=== PATIENT | female | born 1965 | race Asian ===

== ENCOUNTER 2020-08-01 12:11 | Outpatient (REF) | payer OTHER, SELFPAY ==
--- NOTE | 2020-08-01 12:16 | MM_ITS ---
EXAMINATION: MM SCREENING DIGITAL BREAST TOMOSYNTHESIS, BILATERAL CLINICAL INFORMATION: Screening. Asymptomatic. The lifetime risk of breast cancer based on the Tyrer-Cuzick Model is 5.0%. COMPARISON: Mammography: October 29, 2018 and September 29, 2017 TECHNIQUE: Digital breast tomosynthesis is performed in both the craniocaudal and mediolateral oblique views along with computer-aided detection (CAD). Synthesized 2D images are generated from the tomosynthesis. FINDINGS: The breasts are almost entirely fatty (ACR BI-RADS breast composition Category a). There are no significant masses, abnormal calcifications, or other abnormalities. MM/MM tomosynthesis screening BI IMPRESSION: There are no significant changes from prior study. ASSESSMENT: BI-RADS 1: Negative RECOMMENDATION: Routine annual mammography screening. This patient's information was entered into a reminder system with a target due date for their next mammogram.
== END 2020-08-01 12:12 | disposition home or self-care (01) ==
LOC: HO.MAMMO 12:11
PROVIDERS: Visit Provider Internal Medicine
DX: Z12.31 Encounter for screening mammogram for malignant neoplasm of breast (principal)
CPT/HCPCS: 77063; 77067

== ENCOUNTER 2020-09-05 13:02 | Outpatient (REF) | payer OTHER, SELFPAY ==
--- NOTE | 2020-09-05 | CT_ITS ---
EXAMINATION: CT HEAD WITHOUT CONTRAST CLINICAL INFORMATION: Headache COMPARISON: None TECHNIQUE: Contiguous axial imaging was performed from the skull base to vertex without intravenous administration of contrast. This CT examination was performed using dose optimization techniques as appropriate, variously including the following: *Automated exposure control *Adjustment of mA and/or kV according to patient size (this includes techniques or standardized protocols for targeted exams where dose is matched to indication/reason for exam; i.e. extremities or head) *Use of iterative reconstruction technique DLP: 528 mGy-cm FINDINGS: There is no evidence of acute intracranial hemorrhage or territorial infarction. No abnormal mass effect or midline shift is seen. Hernandez to white matter differentiation is well preserved. No extra-axial fluid collections are identified. The ventricles are normal in size. There is no abnormal attenuation within the brain parenchyma. The osseous structures and soft tissues are normal. The mastoid air cells and visualized portions of the paranasal sinuses are well aerated. CT/CT head/brain wo con IMPRESSION: Unremarkable exam.
== END 2020-09-05 13:03 | disposition home or self-care (01) ==
LOC: HO.CT 13:02
PROVIDERS: PCP Internal Medicine; Visit Provider Internal Medicine
DX: G44.89 Other headache syndrome (principal)
CPT/HCPCS: 70450

== ENCOUNTER 2020-09-10 12:31 | Outpatient (REF) | payer OTHER, SELFPAY ==
--- NOTE | 2020-09-10 12:40 | XR_ITS ---
EXAMINATION: XR SHOULDER, LEFT CLINICAL INFORMATION: Primary osteoarthritis COMPARISON: None TECHNIQUE: 4 view left shoulder FINDINGS: There is no evidence of acute fracture or dislocation of the left shoulder. Mild spurring glenohumeral joint is seen without significant narrowing. Subchondral cysts/pit erosions are seen sites of insertion of the supraspinatus tendon on the humeral head. No significant AC joint abnormality. No widening of the coracoclavicular space. XR/XR shoulder LT min 2V IMPRESSION: Subchondral cysts/pit erosions site of insertion supraspinatus tendon.
== END 2020-09-10 12:32 | disposition home or self-care (01) ==
LOC: HO.XRAY 12:31
PROVIDERS: PCP Internal Medicine; Visit Provider Internal Medicine
DX: M19.012 Primary osteoarthritis, left shoulder (principal)
CPT/HCPCS: 73030

== ENCOUNTER → 2022-06-10 12:47 | Outpatient (BNVA) | payer OTHER, SELFPAY | PROVIDERS: PCP Internal Medicine; Referring Provider Internal Medicine; Visit Provider Nurse Practitioner Family | DX: R07.89 Other chest pain (principal); M25.512 Pain in left shoulder; R94.31 Abnormal electrocardiogram [ECG] [EKG]; I10 Essential (primary) hypertension; E78.5 Hyperlipidemia, unspecified; E11.9 Type 2 diabetes mellitus without complications; R20.0 Anesthesia of skin | CPT/HCPCS: 99212 ==

== ENCOUNTER 2022-06-18 13:59 | Outpatient (REF) | payer OTHER, SELFPAY ==
[2022-06-18 14:14] LABS: MANUAL DIFF FLAG NO
[2022-06-18 15:21] LABS: Alanine Aminotransferase 43 U/L (0-31); Albumin Level 4.2 g/dL (3.5-5.0); Alkaline Phosphatase 107 U/L (39-117); Anion Gap 14 (12-20); Aspartate Amino Transferase 25 U/L (5-31); Bilirubin Total 0.4 mg/dL (0.0-1.0); Blood Urea Nitrogen 14 mg/dL (9-16); Calcium 9.7 mg/dL (8.4-10.2); Carbon Dioxide 26 mmol/L (22-29); Chloride 103 mmol/L (96-108); Estimated Glomerular Filt Rate > 60; Glucose Random 125 mg/dL (60-115); Potassium 4.4 mmol/L (3.3-5.1); Sodium 139 mmol/L (135-145); Total Protein 7.7 g/dL (6.5-8.0)
[2022-06-18 17:13] LABS: Basophils Absolute Auto 0.1 X10*3/uL (0.0-0.2); Basophils Percent Auto 0.8 % (0-2); Eosinophils Absolute Auto 0.2 X10*3/uL (0.0-0.4); Hematocrit 38.5 % (37.0-47.0); Hemoglobin 12.7 g/dl (12.0-16.0); Imm Gran Abs Auto 0.02 X10*3/uL (0.00-0.03); Imm Gran Pct Auto 0.3 % (0.0-0.4); Lymphocytes Absolute Auto 2.7 X10*3/uL (1.2-4.9); Lymphocytes Percent Auto 34.8 % (20-40); Mean Corpuscular Hemoglobin 28.7 pg (27.0-33.0); Mean Corpuscular Volume 86.9 fL (80.0-98.0); Mean Platelet Volume 12.3 fL (9.4-12.3); Monocytes Absolute Auto 0.7 X10*3/uL (0.1-1.2); Monocytes Percent Auto 9.1 % (2-11); Neutrophils Absolute Auto 4.2 x10*3/uL (2.0-8.3); Platelet Count 211 X10*3/uL (160-400); Red Blood Count 4.43 X10*6/uL (4.20-5.50); Red Cell Distribution Width 12.9 % (11.0-16.0); White Blood Count 7.9 X10*3/uL (4.8-10.8)
== END 2022-06-18 14:00 | disposition home or self-care (01) ==
LOC: HO.LAB 13:59
PROVIDERS: Visit Provider Nurse Practitioner
DX: Z01.818 Encounter for other preprocedural examination (principal); R10.9 Unspecified abdominal pain
CPT/HCPCS: 36415; 80053; 85025; 99202; 99212

== ENCOUNTER → 2022-07-05 08:15 | Outpatient (REF) | payer OTHER, SELFPAY ==
--- NOTE | ~2022-07-05 | NM_ITS ---
Exercise Myocardial perfusion study Indication: Abnormal EKG with chest pain to evaluate for myocardial ischemia Technique: The patient was brought in for an exercise perfusion study on 07/05/2022. Patient performed exercise as per Enzo protocol and was injected 25 mCi of sestamibi was given intravenously one target HR was achieved. Images were obtained using the SPECT gamma camera interlaced with the gating device. Images were obtained in supine position. Resting perfusion study was performed on 07/06/2022. Patient was administered 25 mCi of sestamibi intravenously at rest. Images were then obtained in supine position. Images obtained with and without CT attenuation. Total DLP 96 mGy-cm. Images were processed with the software and compared side to side in short axis, horizontal long axis and vertical long axis views. Findings: The stress perfusion study showed non attenuated images shows overall normal uptake of radiotracer in all segments of LV myocardium. Attenuated corrected images show normal uptake of radiotracer in all segments of LV myocardium. The gated study shows normal LV systolic function with calculated LVEF of 64%. LV cavity is normal in size. The gated study shows normal systolic wall thickening and contraction of all segments. There is no transient ischemic dilation. Resting study shows no significant change in perfusion pattern compared to stress perfusion study. Gating at rest reveals normal systolic wall motion with ejection fraction at 70%. The findings are consistent with normal myocardial perfusion. NM/NM marcio perf SPECT rest & str Impression: 1. Normal myocardial perfusion 2. Gated LVEF is 64% 3. Transient ischemic dilatation not present Stress EKG is positive for ischemia
--- NOTE | 2022-07-05 08:18 | CA_ITS ---
Acquisition Time: 2022-07-05 08:43:13 Total Exercise Time: 00:05:11 Test Indications: Abnormal ECG CP Medications: ATORVASTATIN LISINOPRIL METOPROLOL JANUVIA Protocol: MICKEY Max HR: 141 BPM 86% of Pred: 163 BPM Max BP: 172/076 mmHG Max Work Load: 7.0 METS Exercise stress test with exercise 5 min 11 sec of Mickey protocol, achieving 86% MPHR, with mild sob, mild mid chest and bilateral shoulder discomfort, with isolated PACs, with normotensive response to exercise, with EKG changes meeting criteria, inferior, V4-V6 with slow gradualy improvement in recovery. Her symptoms resolved with rest. Nuclear images pending. Test reviewed with Dr Goodwin. Referred By: Cris Hope Overread By: CRIS HOPE
== END ==
LOC: HO.CARD 08:15
PROVIDERS: Visit Provider Nurse Practitioner Family
DX: R07.89 Other chest pain (principal); R94.31 Abnormal electrocardiogram [ECG] [EKG]; E11.9 Type 2 diabetes mellitus without complications; E78.5 Hyperlipidemia, unspecified; I10 Essential (primary) hypertension
CPT/HCPCS: 78452; 93017; A9500

== ENCOUNTER → 2022-07-09 10:34 | Outpatient (BNVA) | payer OTHER, SELFPAY | PROVIDERS: PCP Internal Medicine; Visit Provider Physician Assistant | DX: M75.102 Unspecified rotator cuff tear or rupture of left shoulder, not specified as traumatic (principal); M54.12 Radiculopathy, cervical region | CPT/HCPCS: 99202 ==

== ENCOUNTER → 2022-07-16 12:50 | Outpatient (REF) | payer OTHER, SELFPAY ==
--- NOTE | 2022-07-16 12:54 | HM_ITS ---
Conclusion: 1. Patient was monitored for total period of 3 days 2. Baseline was normal sinus rhythm with average heart of 67 beats per minute 3. No significant pauses or bradycardia 4. There were total of 196 PACs noted accounting for 0.07% total beats account for rare PACs 5. No patient reported symptoms MTDD
== END ==
LOC: HO.CARD 12:50
PROVIDERS: Visit Provider Nurse Practitioner Family
DX: R94.31 Abnormal electrocardiogram [ECG] [EKG] (principal); R20.0 Anesthesia of skin; R07.89 Other chest pain
CPT/HCPCS: 93242; 93306

== ENCOUNTER 2022-08-05 12:21 | Outpatient (REF) | payer OTHER, SELFPAY ==
--- NOTE | ~2022-08-05 | US_ITS ---
EXAMINATION: US ABDOMEN COMPLETE CLINICAL INFORMATION: Abdominal pain. COMPARISON: Ultrasound renal . TECHNIQUE: Real-time imaging of the abdominal viscera. FINDINGS: PANCREAS: The visualized pancreas is normal in size and contour and echogenicity. No pancreatic ductal distention or retroperitoneal effusion. The mid to distal pancreatic body and tail are obscured by bowel gas and not completely imaged. ABDOMINAL AORTA: The proximal, mid, and distal segments are normal in caliber. INFERIOR VENA CAVA: Visualized portions are normal. LIVER: Normal. The liver is normal in size. The liver contour is normal. Parenchymal echogenicity is normal. No focal hepatic lesion. No intrahepatic biliary ductal dilatation. Color Doppler shows portal flow towards the liver. GALLBLADDER: Normal. The gallbladder is physiologically distended without evidence of stones, sludge, polyps, wall thickening or pericholecystic fluid. Negative sonographic Hopkins's sign. COMMON BILE DUCT: Normal in caliber measuring 0.4 cm in diameter. RIGHT KIDNEY: Right kidney measures 10.8 cm in length. There is no hydronephrosis or caliectasis. There is incidental mild distention extrarenal pelvis. No perinephric fluid. No visible calculi. Renal parenchymal cortical thickness and echogenicity are normal. LEFT KIDNEY: Normal. No hydronephrosis. No renal calculi or focal parenchymal lesions. The kidney measures 10.9 cm in maximum dimension. SPLEEN: Normal. The spleen measures 9.3 cm in maximum dimension. FREE FLUID: None. US/US abdomen complete IMPRESSION: 1. No cholelithiasis or ductal dilatation. 2. No hydronephrosis or visible renal calculi. 3. Visualized pancreas unremarkable. Portions pancreas obscured by bowel gas.
--- NOTE | ~2022-08-05 | US_ITS ---
EXAMINATION: US EXTRACRANIAL CAROTID DUPLEX, BILATERAL CLINICAL INFORMATION: Hyperlipidemia. Hypertension. Anesthesia of skin. COMPARISON: None TECHNIQUE: Real-time ultrasound and Doppler techniques (integrating B-mode 2-D vascular images, Doppler spectral analysis and color-flow Doppler imaging) were utilized to interrogate the extracranial carotid arteries, the vertebral arteries and proximal subclavian arteries bilaterally. The degree of stenosis is determined by criteria similar to NASCET. FINDINGS: Right Side: 1. There is no atherosclerotic plaque seen in the bifurcation/proximal ICA region. 2. The common carotid artery PSV proximally is 114 cm/s and distally 89 cm/s. 3. The proximal internal carotid artery velocities are 65 cm/s systolic and 22 cm/s diastolic. 4. The proximal external carotid artery PSV is 112 cm/s. 5. The vertebral artery shows antegrade flow. 6. The subclavian artery waveforms are normal. Left Side: 1. There is no atherosclerotic plaque seen in the bifurcation/proximal ICA region. 2. The common carotid artery PSV proximally is 111 cm/s and distally 101 cm/s. 3. The proximal internal carotid artery velocities are 74 cm/s systolic and 26 cm/s diastolic. 4. The proximal external carotid artery PSV is 93 cm/s. 5. The vertebral artery shows antegrade flow. 6. The subclavian artery waveforms are normal. US/US carotid duplex BI IMPRESSION: 1. RIGHT: Normal right internal carotid artery without atherosclerotic plaque or hemodynamically significant stenosis. 2. LEFT: Normal left internal carotid artery without atherosclerotic plaque or hemodynamically significant stenosis.
== END 2022-08-05 12:22 | disposition home or self-care (01) ==
LOC: HO.US 12:21
PROVIDERS: Visit Provider Nurse Practitioner Family
DX: R10.9 Unspecified abdominal pain (principal); R20.0 Anesthesia of skin; E78.5 Hyperlipidemia, unspecified; E11.9 Type 2 diabetes mellitus without complications; R94.31 Abnormal electrocardiogram [ECG] [EKG]
CPT/HCPCS: 76700; 93880

== ENCOUNTER → 2022-09-07 12:50 | Outpatient (BNVA) | payer OTHER, SELFPAY | PROVIDERS: PCP Internal Medicine; Referring Provider Internal Medicine; Visit Provider Nurse Practitioner Family | DX: R94.31 Abnormal electrocardiogram [ECG] [EKG] (principal); R07.89 Other chest pain; I10 Essential (primary) hypertension; M25.512 Pain in left shoulder; E78.5 Hyperlipidemia, unspecified; E11.9 Type 2 diabetes mellitus without complications; R20.0 Anesthesia of skin | CPT/HCPCS: 93005; 99212 ==

== ENCOUNTER 2022-11-05 11:51 | Day surgery (SDC) | payer OTHER, SELFPAY ==
--- NOTE | 2022-11-04 10:45 | P.CONAN_ITS ---
Documented by User: Elana Bolaños NP 11/04/22 10:47 HPI - Anesthesia Eval Consult details Narrative: 57yo F for Upper Endoscopy and Colonoscopy Recent cardiac w/u r/t Left Shoulder pain with radiation to chest. Cardiac testing wnl, likely orthopedic tx PMFSH Active Problems Active Problems: All Active Problems (Updated 07/09/22 @ 11:34 by Jana Herrera) Cervical radiculopathy (Acute) Painful arc syndrome of left shoulder (Acute) Right sided abdominal pain (Acute) Pre-op examination (Acute) Left facial numbness (Acute) Abnormal EKG (Acute) Diabetes (Acute) Hyperlipidemia (Acute) Left shoulder pain (Acute) Chest discomfort (Acute) Hypertension (Acute) Past Medical History Medical History High cholesterol Hx of type 2 diabetes mellitus Hypertension Social History Social History Alcohol intake: never Patient Tobacco Use Status: Never used Tobacco Use of substances other than those prescribed or required for medical reasons: No Advance Directives: No Advance Directives Information Provided: Yes Current occupational status: unemployed 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 Meds Allergies Allergy/AdvReac Type Severity Reaction Status Date / Time No Known Allergies Allergy Verified 11/01/22 14:18 Home Medications Medication Instructions Recorded Confirmed Last Taken Type acetaminophen 650 mg 650 mg PO Q8H 06/10/22 09/08/22 Unknown History tablet,extended release sitagliptin phosphate 50 mg tablet 50 mg PO DAILY 06/10/22 09/08/22 Unknown History (Theresa) blood sugar diagnostic (FreeStyle #10 ea 06/18/22 09/08/22 Unknown History Lite Strips) clotrimazole 1 % topical cream appl topical 06/18/22 09/08/22 Unknown History lancets 33 gauge (TRUEplus Lancets) #100 ea 06/18/22 09/08/22 Unknown History lisinopril 5 mg tablet 5 mg PO DAILY 06/18/22 09/08/22 Unknown History loratadine 10 mg tablet 10 mg PO DAILY 06/18/22 09/08/22 Unknown History metronidazole 0.75 % topical gel topical 06/18/22 09/08/22 Unknown History Exam Exam Date and Time: November 04, 2022 1045 Pertinent Lab Results Pertinent Lab Results: Laboratory Tests 06/18/22 06/18/22 14:13 14:13 WBC 7.9 Hgb 12.7 Hct 38.5 Plt Count 211 Sodium 139 Potassium 4.4 Chloride 103 Carbon Dioxide 26 BUN 14 Creatinine 0.70 Narrative Narrative: EKG 08/2022 normal sinus rhythm, nonspecific ST abnormality, no significant change from prior EKG, rate 67, QTC 437 millisecond Nuclear stress test done on 07/05/22 showed exercise 5 min 11 sec, with EKG changes meeting criteia for ischemia however with normal myocardial perfusion imaging. Echocardiogram done 07/16/22 showed EF 55-60%, no regional WMA. Assessment and Plan Assessment Anesthesia Assessment: Chart Reviewed Documented by User: Avis Sy MD 11/05/22 14:09 [facility] Past Medical History Medical History High cholesterol Hx of type 2 diabetes mellitus Hypertension Family History Family history of problems with anesthesia: No Surgical History History of Problems with Anesthesia: No Social History Social History Alcohol intake: never Patient Tobacco Use Status: Never used Tobacco Use of substances other than those prescribed or required for medical reasons: No Advance Directives: No Advance Directives Information Provided: Yes Current occupational status: unemployed 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 Meds Allergies Allergy/AdvReac Type Severity Reaction Status Date / Time No Known Allergies Allergy Verified 11/01/22 14:18 Home Medications Medication Instructions Recorded Confirmed Last Taken Type acetaminophen 650 mg 650 mg PO Q8H 06/10/22 09/08/22 Unknown History tablet,extended release sitagliptin phosphate 50 mg tablet 50 mg PO DAILY 06/10/22 09/08/22 Unknown History (Januvia) blood sugar diagnostic (FreeStyle #10 ea 06/18/22 09/08/22 Unknown History Lite Strips) clotrimazole 1 % topical cream appl topical 06/18/22 09/08/22 Unknown History lancets 33 gauge (TRUEplus Lancets) #100 ea 06/18/22 09/08/22 Unknown History lisinopril 5 mg tablet 5 mg PO DAILY 06/18/22 09/08/22 Unknown History loratadine 10 mg tablet 10 mg PO DAILY 06/18/22 09/08/22 Unknown History metronidazole 0.75 % topical gel topical 06/18/22 09/08/22 Unknown History Exam Airway Mallampati Class: II TM Dist: >3cm Heart: rrr Lungs: cta Assessment and Plan Assessment Anesthesia Assessment: Anesthesia Plan Discussed Final Anesthetic Review Family History of Problems with Anesthesia: No History of Problems with Anesthesia: No NPO: Yes ASA Class: II Final Preanesthetic Review: No Changes in Pt Med Stat, Meds/Allgs Chart Reviewed, Consent Obtained/Reviewed and Anes Risks/Benef Reviewed Patient Risk: Low Procedure Risk: Low Anesthetic Plan Anesthetic Plan: MAC: and Agree w/ Assess. and Plan Disposition: Standard PACU
[2022-11-05 12:45] VITALS: BMI 29.6
[2022-11-05 12:47] VITALS: BP 148/86; PULSE 82; RESP 18; TEMP 36.4; O2SAT 97
[2022-11-05 12:48] VITALS: BMI 29.6
[2022-11-05] MEDS: Lactated Ringers 1,000 ML 100 ML IVCONT (13:04)
[2022-11-05 13:05] LABS: Glucose, Whole Blood 111 mg/dL (60-115)
--- NOTE | 2022-11-05 13:09 | MHC.SHP ---
Pre-Procedural Eval Section A Date of Service: 11/05/22 The patient is an INPATIENT: No The History & Physical has been completed within 30 days and I have reviewed it.: No Section B Chief Complaint: GERD, screening Details of Present Illness: Colon cancer screening, GERD Relevant Family History (Specify if Yes): No Relevant Social History: None Present Medications: see Short Stay Collaborative assessment Medical History: Significant History (NIDDM HTN High Cholesterol Obesity GERD.. Headache, nos Chronic pain bilateral shoulders Rosacea History of H pylori infection) History of Previous Operations: No relevant previous surgery Allergies: Allergies Allergy/AdvReac Type Severity Reaction Status Date / Time No Known Allergies Allergy Verified 11/01/22 14:18 Review of Systems Sugical H&P ROS: Negative: Constitution, Cardiovascular, Respiratory and Gastrointestinal Exam Surgical H&P Exam: Normal: Heart, Normal: Lungs, Normal: Extremities and Normal: Abdomen Plan Diagnosis/Plan: Change (Colon + EGD) I have reviewed the history and physical and performed a pertinent physical examination on my patient. No changes have occurred unless specified. Time Spent With Patient Time: Total time managing care of this patient today ____ minutes.
--- NOTE | 2022-11-05 14:22 | P.OP_ITS ---
Operative Note Operative Note Date of Service: 11/05/22 Narrative: Pre-op diagnosis: Colon cancer screen, GERD, abdominal pain Post-op diagnosis:?other (GERD, gastritis Colon polyp, diverticulosis, hemorrhoids) Surgeon: Ovi Lord MD Anesthesia:?MAC FLEXIBLE TRANSORAL UPPER GASTROINTESTINAL ENDOSCOPY WITH BIOPSIES AND COLONOSCOPY TILL CECUM WITH BIOPSIES UPPER ENDOSCOPY Consent: Indications for the procedure and potential complications of bleeding, perforation, reaction to medications and missed diagnosis were discussed with the patient with the help of an Danish languages and literature instructor and informed consent was obtained. Instrument: Olympus GIF H 190 mid size upper endoscope Monitoring: Vital signs and clinical assessment, continuous EKG monitoring, Pulse oximetry, Carbon Dioxide monitoring and blood pressure monitoring were done throughout the procedure. Procedure: The patient was placed in the left lateral decubitis position and pre-procedure medications were administered and a bite block was placed. The endoscope was inserted into the mouth and advanced under direct vision to the third part of duodenum. A careful inspection was made as the upper endoscope was withdrawn including a retroflexed examination of the proximal stomach; Findings and interventions are described below. Findings: Larynx: Normal Esophagus: GE junction at 36 cms. No esophagitis or Davis's. Stomach: Mild gastric erythema. Biopsies were obtained. Grade 2 flap valve on retroflexed examination of the cardia. Duodenum: Normal bulb and descending duodenum. Biopsies were obtained from 3rd part of duodenum to check for celiac sprue. Intervention: Biopsies as noted above COLONOSCOPY PROCEDURE NOTE Consent: Indications for the procedure and potential complications of bleeding, perforation, reaction to medications and missed diagnosis were discussed with the patient and informed consent was obtained. Instrument: Olympus PCF H 190 L variable stiffness pediatric colonoscope Monitoring: Vital signs and clinical assessment, intermittent blood pressure monitoring, continuous EKG monitoring, Pulse oximetry and Carbon Dioxide monitoring were done throughout the procedure. Colon withdrawl time was 14 minutes. Procedure: The patient was placed in the left lateral decubitis position and pre-procedure medications were administered. After a digital rectal examination of the ano-rectum, the video colonoscope was inserted into the rectum and advanced through the colon to the cecum. The colonoscope was slowly withdrawn in a retrograde panoramic fashion and the colon mucosa was carefully examined including a retroflexed view of the rectum. Findings and interventions are described below. Procedure Difficulty: : Without difficulty Findings: Terminal Ileum: Not evaluated Cecum: Normal Ascending Colon: Normal Transverse Colon: A 4-5 mm sessile polyp removed with a cold bx Descending Colon: Normal Sigmoid Colon: Mild diverticulosis Rectum: Normal Ano-rectum: Small internal hemorrhoids Colon preparation: Good Impression and Post Procedure Diagnosis: Endoscopy Findings: STOMACH: Mild gastritis DUODENUM: Normal - biopsied to check for celiac sprue Colonoscopy Findings: One tiny polyps removed Mild diverticulosis seen in the sigmoid colon Small hemorrhoids on retroflexed exam. Plan: Await pathology results Patient has an appointment on 11/19/22 in the [facility] with July Sexton NP. Repeat Colonoscopy interval based on path results - in 5 years if polyps are adenomatous and 10 years if polyps are hyperplastic. Above findings were reviewed with the patient and GERD, colon polyps and diverticulosis handouts were given in the discharge area
--- NOTE | 2022-11-05 14:22 | PM.OP ---
Brief Operative Note Date of Service: 11/05/22 Pre-op diagnosis: Colon cancer screen, GERD, abdominal pain Post-op diagnosis: other (GERD, gastritis Colon polyp, diverticulosis, hemorrhoids) Procedure: EGD WITH BIOPSIES COLONOSCOPY TILL CECUM WITH BIOPSIES Surgeon: Ovi Lord MD Anesthesia: MAC Was an Synchronous Motor Assembler used for this Procedure?: Yes Synchronous Motor Assembler: Jana Gore Estimated blood loss (mL): 0 Pathology: other (A. small bowel bxs, R/O celiac B. gastric antrum bxs, R/O H. pylori C: transverse colon polyp) Condition: stable Disposition: PACU
[2022-11-05 15:36] VITALS: BP 116/60; PULSE 67; RESP 16; TEMP 36.6; O2SAT 98
[2022-11-05 15:51] VITALS: BP 135/75; PULSE 67; RESP 16; TEMP 36.3; O2SAT 100
== END 2022-11-05 16:12 | disposition home or self-care (01) ==
PROVIDERS: PCP Internal Medicine; Visit Provider Internal Medicine Gastroenterology
PROC: (CPT 45380; principal; 2022-11-05 12:20)
DX: Z12.11 Encounter for screening for malignant neoplasm of colon (principal); D12.3 Benign neoplasm of transverse colon; K57.30 Diverticulosis of large intestine without perforation or abscess without bleeding; K64.8 Other hemorrhoids; K59.00 Constipation, unspecified; K21.9 Gastro-esophageal reflux disease without esophagitis; K29.50 Unspecified chronic gastritis without bleeding; Z87.19 Personal history of other diseases of the digestive system; E78.00 Pure hypercholesterolemia, unspecified; I10 Essential (primary) hypertension; E11.8 Type 2 diabetes mellitus with unspecified complications; Z79.84 Long term (current) use of oral hypoglycemic drugs; Z79.899 Other long term (current) drug therapy
CPT/HCPCS: 45380; 43239; 82947; 88305; 88342

== ENCOUNTER → 2022-11-19 13:27 | Outpatient (BNVA) | payer OTHER, SELFPAY | PROVIDERS: PCP Internal Medicine; Referring Provider Internal Medicine; Visit Provider Nurse Practitioner | DX: Z01.818 Encounter for other preprocedural examination (principal); R10.9 Unspecified abdominal pain; D12.6 Benign neoplasm of colon, unspecified | CPT/HCPCS: 99212 ==

== ENCOUNTER → 2023-03-09 13:04 | Outpatient (BNVA) | payer OTHER, SELFPAY | PROVIDERS: PCP Internal Medicine; Referring Provider Internal Medicine; Visit Provider Internal Medicine Cardiovascular Disease | DX: R07.89 Other chest pain (principal); I10 Essential (primary) hypertension; Z79.899 Other long term (current) drug therapy | CPT/HCPCS: 99212 ==

== ENCOUNTER 2024-02-14 10:06 | Outpatient (AMB) | payer MEDICAID, SELFPAY ==
--- NOTE | 2024-02-14 10:14 | A.OFFVIS_ITS ---
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: No Wet Suit Gluer: Wet Suit Gluer Present Allergies No Known Allergies Allergy (Verified 02/14/24 10:18) Medication List - Last Reconciled 02/14/24 by DANDRE Goldberg acetaminophen ER 650 mg PO Q8H atorvastatin 20 mg PO BEDTIME 90 days blood sugar diagnostic (FreeStyle Lite Strips) As directed calcium carbonate-vitamin D3 500 mg-5 mcg (200 unit) (Oyster Shell Calcium- Vitamin D3) 1 tab PO clotrimazole 1% appl topical diclofenac sodium 1% 4 grams topical QID famotidine 40 mg PO BEDTIME PRN lancets (TRUEplus Lancets) As directed lisinopril 5 mg PO DAILY loratadine 10 mg PO DAILY metoprolol succinate ER 25 mg PO DAILY 90 days metronidazole 0.75% topical saxagliptin 2.5 mg PO DAILY HPI HPI 6 mth f/up per km: Details: Lorena 58-year-old female with past medical history of hypertension, hyperlipidemia, diabetes who has previously been evaluated for left chest discomfort without cardiac findings. Her last prior visit to our office was 03/09/2023 and she now presents for follow-up. Today she reports that she continues to have issues with left shoulder discomfort which does seem to radiate into her chest. She has pain with raising her left arm. She will notice quick stabbing discomfort in her chest if she lifts objects. She has does only light activities around the house. She never followed through with the steroid injection that was previously recommended by Orthopedics. He has no other chest pains or pressure. No concerning shortness of breath, palpitations, PND, orthopnea or edema. No dizziness, presyncope, syncope, falls. Daughter is present and assisting with translation at their request. Permit signed. 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 Review of Systems Const All systems reviewed & are unremarkable except as noted in HPI and below ENT Denies dizziness Card Details: Left shoulder discomfort which radiates to the left chest when she raises her arm Denies chest pain, Denies chest pain at rest, Denies chest pain with activity, Denies rapid heart rate, Denies pedal edema, Denies edema, Denies leg edema, Denies lightheadedness, Denies palpitations, Denies dyspnea, Denies dyspnea on exertion and Denies orthopnea Resp Denies cough, Denies dyspnea and Denies dyspnea on exertion GI Denies hematochezia and Denies change in stool character Musc Denies abnormal gait, Denies limited range of motion, Denies muscle cramps, Denies muscle weakness, Denies numbness, Denies radiating pain into limb, Denies stiffness and Denies tingling Neuro Denies abnormal gait, Denies dizziness, Denies numbness and Denies tingling Endo Denies palpitations Physical Exam Vital Signs: Last Vital Signs Pulse 64 02/14/24 10:15 BP 114/62 02/14/24 10:15 BMI result Body Mass Index 28.2 Const General: cooperative, healthy appearing, comfortable and no acute distress Orientation/consciousness: patient oriented x3 Neck Neck: Yes normal visual inspection and Yes no JVD Resp Effort & Inspection: normal respiratory effort Auscultation: clear to auscultation bilaterally, no crackles, no rales, no rhonchi and no wheezes Cardio Jugular venous distension: no JVD Rate: regular rate Rhythm: regular rhythm Heart sounds: S1 normal heart sound present, S2 normal heart sound present, no murmurs and no rubs Neuro General: patient oriented x3 Extrem General: Yes normal to inspection, No no pedal edema and No calf tenderness Psych Appearance: grossly normal Mental Status: mental status grossly normal Speech and movement: Normal speech and movement present Assessment & Plan Assessment & Plan (1) Chest discomfort: Code(s): R07.89 - Other chest pain Category: Medical Plan: Evaluation at [facility] Room for left shoulder to chest area discomfort on 04/26/2022. Records previously reviewed. EKG showed sinus rhythm with moderate criteria for LVH versus normal variant. Troponin normal x2. Left shoulder x-ray showed no fracture or dislocation. She had reproducible pain with movement of the arm and shoulder. She does have cardiac risk factors of hypertension, hyperlipidemia and diabetes. She was evaluated in Cardiology for her symptom and underwent Nuclear stress test done on 07/05/22 showed exercise 5 min 11 sec, with EKG changes meeting criteia for ischemia however with normal myocardial perfusion imaging. Echocardiogram done 07/16/22 showed EF 55-60%, no regional WMA. At this time she continues to report some discomfort into the left chest region and sharp pains in her chest if she lifts objects. Her symptom is reproducible with movement of the left arm and there is some mild tenderness to the pectoral muscles upon palpation. Her symptoms are very atypical for angina. No further testing needed at this time. Reviewed the signs and symptoms of angina reviewed her. Cardiac risk factor modification reviewed. She tells me that her blood sugars have been mildly elevated. The importance of good blood sugar control reviewed. Blood pressure currently 114/6 2. Continue physical activity as tolerated. Recommend she follow-up with Orthopedics regarding discomfort in her left shoulder. Signs and symptoms of angina reviewed. Cardiology follow-up 1 yr sooner if needed (2) Left shoulder pain: Code(s): M25.512 - Pain in left shoulder Category: Medical Plan: Has seen orthopedics. Recommend she return. (3) Hyperlipidemia: Code(s): E78.5 - Hyperlipidemia, unspecified Category: Medical Plan: Crivitz LDL goal less than 70 and patient with diabetes. She continues on atorvastatin at 20 mg daily. Labs followed by PCP (4) Diabetes: Code(s): E11.9 - Type 2 diabetes mellitus without complications Category: Medical Plan: Hemoglobin A1c goal less than 7. Followed by PCP (5) Hypertension: Code(s): I10 - Essential (primary) hypertension Category: Medical Plan: Well controlled at present time. Continue on lisinopril and metoprolol. She should have biannual basic metabolic profile done. (6) Abnormal EKG: Code(s): R94.31 - Abnormal electrocardiogram [ECG] [EKG] Category: Medical Plan: EKG showing sinus rhythm with moderate criteria for LVH versus normal variant. Echo shows normal LV wall thickness. Plan Time spent on chart review, documentation, interview and assessment Coding Level of Care Code Est Pt Level 3 (26697) Diagnoses Chest discomfort R07.89 Left shoulder pain M25.512 Hyperlipidemia E78.5 Diabetes E11.9 Hypertension I10 Abnormal EKG R94.31 Time Spent (min) 24
[2024-02-14 10:15] VITALS: BP 114/62; PULSE 64; BMI 28.2
== END 2024-02-14 10:54 | disposition home or self-care (01) ==
PROVIDERS: PCP Internal Medicine; Visit Provider Nurse Practitioner Family
DX: R07.89 Other chest pain (principal); M25.512 Pain in left shoulder; E78.5 Hyperlipidemia, unspecified; E11.9 Type 2 diabetes mellitus without complications; I10 Essential (primary) hypertension; R94.31 Abnormal electrocardiogram [ECG] [EKG]
CPT/HCPCS: 99213

== ENCOUNTER → 2024-02-14 10:06 | Outpatient (BNVA) | payer OTHER, SELFPAY | PROVIDERS: PCP Internal Medicine; Visit Provider Nurse Practitioner Family | DX: R07.89 Other chest pain (principal); M25.512 Pain in left shoulder; E78.5 Hyperlipidemia, unspecified; E11.9 Type 2 diabetes mellitus without complications; I10 Essential (primary) hypertension; R94.31 Abnormal electrocardiogram [ECG] [EKG] | CPT/HCPCS: 99212 ==

== ENCOUNTER 2024-06-14 13:28 | Outpatient (REF) | payer MEDICAID, SELFPAY ==
[2024-06-14 17:13] LABS: Alanine Aminotransferase 20 U/L (0-31); Albumin Level 4.2 g/dL (3.5-5.0); Alkaline Phosphatase 92 U/L (39-117); Anion Gap 11 (12-20); Aspartate Amino Transferase 21 U/L (5-31); Bilirubin Total 0.6 mg/dL (0.0-1.0); Blood Urea Nitrogen 11 mg/dL (9-16); Calcium 9.9 mg/dL (8.4-10.2); Carbon Dioxide 25 mmol/L (22-29); Chloride 106 mmol/L (96-108); Cholesterol 137 mg/dL (<200); Estimated Glomerular Filt Rate > 60; Glucose Random 114 mg/dL (60-115); HDL Cholesterol 41 mg/dL (>40); LDL Cholesterol Calculated 75 mg/dL (<100); Potassium 4.2 mmol/L (3.3-5.1); Sodium 138 mmol/L (135-145); Total Protein 7.7 g/dL (6.5-8.0); Triglycerides 106 mg/dL (<150)
[2024-06-14 17:30] LABS: Vitamin D 25-OH Total 35.9 ng/mL (>30)
[2024-06-14 17:34] LABS: Reflex LDLD? No
== END 2024-06-14 13:29 | disposition home or self-care (01) ==
LOC: HO.HHCL 13:28
PROVIDERS: Visit Provider Internal Medicine
DX: E11.9 Type 2 diabetes mellitus without complications (principal); E78.2 Mixed hyperlipidemia; M75.82 Other shoulder lesions, left shoulder
CPT/HCPCS: 36415; 80053; 80061; 82043; 82306; 82570

== ENCOUNTER 2025-01-17 11:36 | Outpatient (REF) | payer MEDICAID, SELFPAY ==
[2025-01-17 13:38] LABS: MANUAL DIFF FLAG NO
[2025-01-17 13:45] LABS: Basophils Absolute Auto 0.1 X10*3/uL (0.0-0.2); Basophils Percent Auto 0.7 % (0-2); Eosinophils Absolute Auto 0.1 X10*3/uL (0.0-0.4); Eosinophils Percent Auto 1.2 % (0-4); Hemoglobin 12.9 g/dl (12.0-16.0); Imm Gran Abs Auto 0.02 X10*3/uL (0.00-0.03); Imm Gran Pct Auto 0.3 % (0.0-0.4); Lymphocytes Absolute Auto 1.9 X10*3/uL (1.2-4.9); Lymphocytes Percent Auto 25.7 % (20-40); Mean Corpuscular HGB Conc 33.9 g/dl (31.0-35.0); Mean Corpuscular Hemoglobin 28.9 pg (27.0-33.0); Mean Corpuscular Volume 85.2 fL (80.0-98.0); Mean Platelet Volume 12.7 fL (9.4-12.3); Monocytes Absolute Auto 0.5 X10*3/uL (0.1-1.2); Monocytes Percent Auto 6.8 % (2-11); Neutrophils Absolute Auto 4.9 x10*3/uL (2.0-8.3); Neutrophils Percent Auto 65.3 % (45-73); Platelet Count 155 X10*3/uL (160-400); Red Blood Count 4.46 X10*6/uL (4.20-5.50); Red Cell Distribution Width 12.5 % (11.0-16.0); White Blood Count 7.5 X10*3/uL (4.8-10.8)
[2025-01-17 13:54] LABS: Rheumatoid Factor < 13.0 IU/mL (<15.0)
[2025-01-17 13:56] LABS: C Reactive Protein < 0.10 mg/dL (< or = 0.50); Uric Acid 3.9 mg/dL (2.4-5.7)
--- OUTSIDE RECORDS SUMMARY | 2025-01-17 14:11 | XMS_ITS | Encounter Summary ---
Author Organization [employer] Address [address] [place] [address] Care Team Providers Care Inorganic Chemistry Professor Name Role Phone Twyla Cedeño MD Primary Care Provider + Reason for Visit * Reason Comments Med Refill Encounter Details Date Type Department Care Team (Late st Contact Info) Description 06/23/2023 Refill [facility] [address] [place] [address] Carmel Dang MD [address], [place] [phone] Rosacea Social History Tobacco Use Types Packs/Day Years Used Date Smoking Tobacco: Never Smokeless Tobacco: Never Alcohol Use Standard Drinks/Week Comments Never 0 (1 standard drink = 0.6 oz pur e alcohol) Depression Answer Date Recorded Patient Health Questionnaire-2 Score 0 11/24/2022 Comments Unknown Sex and Gender Information Value Date Recorded Sex Assigned at Female 08/09/2022 10:32 AM EDT Legal Sex Female 10:32 AM EDT Gender Identity Female 08/09/2022 10:32 AM EDT Sexual Orientation Choose not to disclose 2021 10:32 AM EDT documented as of this encounter Plan of Treatment Upcoming Encounters Date Type Department Care Team (Late st Contact Info) Description 02/04/2025 1:00 PM EDT Office Visit [facility] [address], [place] [phone] Nevaeh Hauser documented as of this encounter Visit Diagnoses Diagnosis Rosacea documented in this encounter Care Teams Inorganic Chemistry Professor Relationship Specialty Start Date End Date Twyla Cedeño MD [address] [place] [address] PCP - General Family Medicine 09/27/17 documented as of this encounter
--- OUTSIDE RECORDS SUMMARY | 2025-01-17 14:11 | XMS_ITS | Clinical Summary ---
Author Organization [employer] Address [address] [place] [address] Care Team Providers Care Stroke Coordinator Name Role Phone Twyla Cedeño MD Primary Care Provider + Allergies Active Allergy Reactions Criticality Noted Date Comments Carolina Oil 06/14/2024 Medications acetaminophen (Tylenol 8 Hour) 650 MG ER tablet TAKE 1 TO 2 TABLETS BY MOUTH EVERY 8 HOURS NEEDED SWALLOW WHOLE WITH WATER DO NOT BREAK, CRUSH, DISSOLVE OR CHEW 06/03/20 22 Active Blood Pressure Monitoring (Omron 3 Series BP Monitor) device USE TO CHECK BLOOD PRESSURE EVERY DAY 09/06/20 22 Active Sodium Fluoride (PreviDent) 1.1 % gel Use at bed time every night spit do not rinse for 30 min. 05/14/20 19 Active zoster vaccine, live, (Zostavax) 02316 UNT/0.65ML injection inject 0.65 milliliter by subcutaneous route once 05/29/20 19 Active Continuous Glucose Field Marketing Specialist (FreeStyle Sony 2 [place]) device Scan sensor every 8 hours 1 each 06/14/20 24 Active Continuous Glucose Sensor (FreeStyle Sony 2 Sensor) [facility] Apply 1 sensor every 14 days 2 each 11 06/14/20 24 Active glucose blood (FreeStyle Precision Georgi Test) test strip Use to test blood sugar 3 times daily 100 each 1 06/14/20 24 Active glucose blood (FREESTYLE LITE) test stripIndication s:Type 2 diabetes mellitus without complication, without long-term current use of insulin ([facility]) TEST BLOOD SUGAR THREE TIMES DAILY 100 strip 1 07/27/20 24 Active famotidine (Pepcid) 40 MG tabletIndicatio ns:Gastroesopha geal reflux disease with esophagitis without hemorrhage TAKE 1 TABLET BY MOUTH AT BEDTIME NEEDED 90 tablet 1 07/27/20 24 Active TRUEplus Lancets 33G miscIndications :Type 2 diabetes mellitus without complication, without long-term current use of insulin ([facility]) TEST BLOOD SUGAR THREE TIMES DAILY 100 each 11 08/28/20 24 Active Menthol, Topical Analgesic, (Icy Hot) 5 % patch Use on affected area 14 patch 09/14/20 24 Active meloxicam (Mobic) 15 MG tablet Take 1 tablet (15 mg) by mouth Once per day. 30 tablet 09/14/20 24 2024 Active Antacid Extra Strength 750 MG chewable tablet CHEW 1 TABLET BY MOUTH TWICE DAILY 180 tablet 1 10/15/19 25 Active Diclofenac Sodium 1 % gelIndications: Chronic left shoulder pain APPLY 4 GRAMS TOPICALLY TO AFFECTED AREA(S) FOUR TIMES DAILY 100 g 3 10/23/19 25 Active atorvastatin (Lipitor) 20 MG tabletIndicatio ns:Type 2 diabetes mellitus without complication, without long-term current use of insulin ([facility]) TAKE 1 TABLET BY MOUTH AT BEDTIME 90 tablet 1 11/12/19 25 Active metoprolol succinate XL (Toprol-XL) 25 MG 24 hr tabletIndicatio ns:Essential hypertension TAKE 1 TABLET BY MOUTH EVERY MORNING 90 tablet 1 11/12/19 25 Active loratadine (Claritin) 10 MG tablet TAKE 1 TABLET BY MOUTH EVERY DAY 90 tablet 1 11/12/19 25 Active lisinopril 5 MG tabletIndicatio ns:Essential hypertension TAKE 1 TABLET BY MOUTH EVERY MORNING 90 tablet 1 11/12/19 25 Active Januvia 50 MG tablet TAKE 1 TABLET BY MOUTH EVERY MORNING 30 tablet 1 01/01/20 25 Active Januvia 50 MG tablet TAKE 1 TABLET BY MOUTH EVERY MORNING 90 tablet 10/12/19 25 2024 Discontinued Active Problems Problem Noted Date Diagnosed Date Tenosynovitis of finger and hand 01/17/2025 Varicose veins of both lower extremities with pa in 06/14/2024 Assessment & Plan (06/14/2024 3:15 PM EDT): On lower extremities, advised to use compression stockings to knee level Generalized abdominal pain 04/24/2023 Mononeuropathy due to type 2 diabetes mellitus 0 04/24/2023 Assessment & Plan (06/14/2024 3:16 PM EDT): On right foot, stable. Advised to do foot check regularly. Tendinitis of left rotator cuff 04/24/2023 Assessment & Plan (09/17/2024 9:22 AM EST): Declined referral to PT again to continue rehab, she also declined referral to joint injection clinic. She wants to be referred to orhto to explore other rx options, will do. Continue Meloxicam and tylenol prn, advised re acupuncture clinic. Assessment & Plan (06/14/2024 1:56 PM EDT): Mild improved on PT, will continue POC. Declined referral to steroid injection. Needs assistance for ADLs that involve lifting, she is being evaluated for home care. Assessment & Plan (03/09/2024 3:53 PM EDT): Partial improvement with PT. Wants to go back to PT, if no improvement she agrees to steroid injection. Continue Tylenol prn May needs assistance with ADLs, I will order an evaluation for PACK OUT OPERATOR Helicobacter pylori (H. pylori) 11/24/2022 Overview (07/10/2023): Replace inactive dx Rosacea 02/06/2019 Assessment & Plan (05/09/2023 2:34 PM EDT): No significant rash, seems to have improved with metrogel, however, she does not tolerate well. Will prescribe XXXX Avoid sun exposure. Menopausal flushing 11/06/2018 Vitamin D deficiency 11/06/2018 Assessment & Plan (03/09/2024 3:52 PM EDT): Check Vit D levels Essential hypertension 08/04/2018 Assessment & Plan (03/09/2024 3:49 PM EDT): Controlled. Compliant w/meds Continue lisinopril and metoprolol same dose Counseled re low salt diet/increase moderate physical activity. Check home BP BIW and prn CP/LYNCH/FOX Non smoking patient. Order labs and fu w me in3m Assessment & Plan (11/24/2022 10:57 AM EST): Controlled. Compliant w/meds Continue lisinopril 5 mg + Metoprolol ER 25 mg Counseled re low salt diet/increase moderate physical activity. Check home BP BIW and prn CP/LYNCH/FOX Non smoking patient. Precordial pain 08/04/2018 Gastroesophageal reflux disease 03/15/2018 Pain in female pelvis 03/15/2018 Headache disorder 01/30/2018 Microalbuminuric diabetic nephropathy 10/31/2017 Tinea pedis 10/31/2017 Type 2 diabetes mellitus without complication Assessment & Plan (09/17/2024 9:23 AM EST): Its most likely controlled. Will check A1c at next OV Continue on Januvia 50 mg. Counseled re more frequent low calorie/carb meals. Check fgstk once daily Encouraged physical activity as tolerated. FU in 3 months. Assessment & Plan (06/14/2024 1:57 PM EDT): Controlled. A1c is at goal. Continue on Januvia 50 mg. Counseled re more frequent low calorie/carb meals. Check fgstk once daily Encouraged physical activity as tolerated. FU in 3 months. Assessment & Plan (03/09/2024 3:52 PM EDT): Uncontrolled. Increase Onglyza to 5mg/d Counseled re more frequent low calorie/carb meals. Check fgstk 2x daily Encouraged physical activity as tolerated. FU in 3 months. Assessment & Plan (05/09/2023 2:35 PM EDT): Controlled, A1C at goal. Continue same medications in med boxes. Refills x 3 months Due for blood test on 2022 she will follow up with PCP in [facility]. Her daughter will schedule fu with me on their return. Counseled re more frequent low calorie/carb meals. Encouraged physical activity as tolerated. Assessment & Plan (11/24/2022 10:59 AM EST): Controlled. A1c is at goal. Continue on Januvia. Counseled re more frequent low calorie/carb meals. Check fgstk once daily Encouraged physical activity as tolerated. Referred to DM educator. FU in 3 months. Hyperlipidemia 09/29/2017 Assessment & Plan (03/09/2024 3:53 PM EDT): On atorvastatin 20mg, check lipids. Recommended moderate amount of exercise and increase consumption of fruit, vegetables, fish and high fiber foods. Should decrease consumption of highly saturated fats or trans fats. Acute vaginitis 09/29/2017 Obesity 09/29/2017 Resolved Problems Problem Noted Date Diagnosed Date Resolved Date Arthritis of left shoulder region 11/24/2022 09/14/2024 Assessment & Plan (11/24/2022 10:59 AM EST): Gave information to do home exercises. Pt has declinied steroid injection by orthopedics. She has not attended PT appointments yet. 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 2 diabetes mellitus (CMS/HCC); Tendinitis of left rotator cuff; Tenosynovitis of finger and hand; Rosacea 01/17/2025 Travel 01/16/2025 Telephone [facility] [address], [place] [phone] Twyla Cedeño MD Chart prep 01/08/2025 1:00 PM EDT Office Visit [facility] [address] [place], [place] [phone] Anca Fernandez, OD Type 2 diabetes mellitus without complication, without long-term current use of insulin (CMS/HCC) (Primary Dx); Pseudoexfoliation syndrome; Ocular hypertension, bilateral; Age-related nuclear cataract of both eyes; Corneal scar, left eye; Presbyopia 01/08/2025 Travel 01/08/2025 Patient Outreach [facility] [address] [place] [address] Twyla Cedeoñ MD Pre-visit Planning ((Unable to reach for PVP screening, LVM)) 12/29/2024 Refill [facility] [address], [place] [phone] [facility], FORMATION TESTING OPERATOR 12/21/2024 Population Health Risk Score [facility] () Department [address] [phone] Provider, Population Health Generic 11/12/2024 Refill [facility] [address], [place] [phone] Twyla Cedeño MD Type 2 diabetes mellitus without complication, without long-term current use of insulin (CMS/HCC); Essential hypertension 10/22/2024 Refill [facility] [address], [place] [phone] Twyla Cedeño MD Chronic left shoulder pain from Last 3 Months Immunizations Name Administration Dates Next Due Influenza Injectable Quadriv alant Preservative Free IIV4 MDCK 07/22/2022,09/08/2020 Influenza injectable quadriv alent IIV4 with preservative 06/27/2019,09/29/2017 Influenza injectable quadrivalent preservative f ree 10/13/2018 Moderna Covid-19 Vaccine 12+ 04/14/2021,03/18/20 21 Tdap 05/29/2019 Zoster, live 05/29/2019 Social History Tobacco Use Types Packs/Day Years Used Date Smoking Tobacco: Never Smokeless Tobacco: Never Tobacco Cessation:Counseling Given: Not Answered Alcohol Use Standard Drinks/Week Comments Never 0 (1 standard drink = 0.6 oz pur e alcohol) Housing Stability Answer Date Recorded What is your housing situation today? I have seven [address]arro 05/28/[address] you li ve. Do you have problems with any of the following? None of the above 05/28/2024 Food Insecurity Answer Date Recorded Within the past 12 months, y ou worried that your food would run out before you got money to buy more: Never True 05/28/2024 Within the past 12 months,th e food you bought just didn't last and you didn't have enough money to get more: Never True Transportation Answer Date Recorded In the past 12 months, has l ack of transportation kept you from medical appts, meetings, work or from getting things needed for daily living? No 05/28/2024 Utilities Answer Date Recorded In the past 12 months, has t he electric, gas, oil or water company threatened to shut off services in your home? No 05/28/2024 Depression Answer Date Recorded Patient Health Questionnaire-2 Score 0 11/24/2022 Internet Access Answer Date Recorded Internet Access Q1 No 01/17/2025 Internet Access Q2 I do not want or need it 01/08 Comments No Sex and Gender Information Value Date Recorded Sex Assigned at Female 08/09/2022 10:32 AM EDT Legal Sex Female 10:32 AM EDT Gender Identity Female 08/09/2022 10:32 AM EDT Sexual Orientation Choose not to disclose 2021 10:32 AM EDT Last Filed Vital Signs Vital Sign Reading Time Taken Comments Blood Pressure 137/69 01/17/2025 10:25 AM EDT Pulse 63 01/17/2025 10:25 AM EDT Temperature 36.1 ??C (97 ??F) 01/17/2025 10:25 AM EDT Respiratory Rate 16 03/09/2024 11:08 AM EDT Oxygen Saturation 99% 01/17/2025 10:25 AM EDT Inhaled Oxygen Concentration - - Weight 70 kg (154 lb 6 oz) 01/17/2025 10:25 AM E DT Height 154.9 cm (5' 1 ) 01/17/2025 10:25 AM EDT Body Mass Index 29.17 01/17/2025 10:25 AM EDT Plan of Treatment Upcoming Encounters Date Type Department Care Team (Late st Contact Info) Description 02/04/2025 1:00 PM EDT Office Visit [facility] ADULT DENTAL [address] [place] [phone] Nevaeh Hauser Health Maintenance Due Date Last Done Comments CT Colonography 1964 FIT DNA/Cologuard 1964 FIT 1964 FOBT 1964 HIV Screening 1964 Sigmoidoscopy 1964 Alcohol/Substance Use Screening 1976 Hepatitis C Screening 1982 Pneumococcal Vaccine: 50+ Years (1 of 2 - PCV) 1983 Pap Smear 1985 Zoster Vaccines (2 of 3) 07/24/2019 05/29/2019 Mammogram 08/01/2022 08/01/2020, 10/11, 11/07/2018, Additional history exists Cervical Cancer Screening 11/23/2022 HPV/Cotest 11/23/2022 11/23/2017 Depression Screening 11/24/2023 11/24/2022, 11/24/19 COVID-19 Vaccine ( - season) 2024 04/14/2021, 03/18/2021 Influenza Vaccine (#1) 2024 , 09/08/2020, 06/27/2019, Additional history exists RSV Patients and Patients Aged 60 years or older (1 - Risk 60-74 years 1-dose series) 2024 Dental Oral Exam 01/18/2025 07/19/2024 Dental Prophylaxis 02/02/2025 08/03/2024 Diabetes: Foot Exam 06/14/2025 06/14/2024, 06/14/2024, 06/14/2024, Additional history exists Lipid Panel 06/14/2025 06/14/2024, 07/11, 03/18/2021, Additional history exists Diabetes: Hemoglobin A1C 07/19/2025 025, 06/14/2024, 03/09/2024, Additional history exists Dental X-Ray: Bitewings 07/20/2025 07/19/2024 SDOH Screening 01/17/2026 01/17/2025 Tobacco Screening 01/17/2026 01/17/2025 Eye Exam 01/08/2027 01/08/2025, 04/0 10/2024, 01/08/2025, Additional history exists Dental X-Ray: Full Mouth 07/20/2027 07/19/2024 Colonoscopy 11/05/2027 11/05/2022 Colorectal Cancer Screening 11/05/2027 DTaP/Tdap/Td Vaccines (2 - Td or Tdap) 05/29/2029 05/29/2019 HIB Vaccines Aged Out No longer eligi ble based on patient's age to complete this topic HPV Vaccines Aged Out No longer eligi ble based on patient's age to complete this topic Hepatitis A Vaccines Aged Out No long er eligible based on patient's age to complete this topic Hepatitis B Vaccines Aged Out No long er eligible based on patient's age to complete this topic IPV Vaccines Aged Out No longer eligi ble based on patient's age to complete this topic Meningococcal Vaccine Aged Out No robby pascale eligible based on patient's age to complete this topic RSV under 20 months Aged Out No longe r eligible based on patient's age to complete this topic Rotavirus Vaccines Aged Out No longer eligible based on patient's age to complete this topic Procedures Procedure Name Priority Date/Time Associated Diagnosis Comments CBC WITH AUTO DIFFERENTIAL Routine 01/17/2025 11:39 AM EDT Tendinitis of left rotator cuff Tenosynovitis of finger and hand URIC ACID Routine 01/17/2025 11:39 AM EDT Tendinitis of left rotator cuff Tenosynovitis of finger and hand RHEUMATOID FACTOR Routine 01/17/2025 11: 39 AM EDT Tendinitis of left rotator cuff Tenosynovitis of finger and hand C-REACTIVE PROTEIN Routine 01/17/2025 11 :39 AM EDT Tendinitis of left rotator cuff Tenosynovitis of finger and hand POCT GLYCATED HEMOGLOBIN, TOTAL Routine 01/17/2025 10:25 AM EDT Type 2 diabetes mellitus without complication, without long-term current use of insulin (CMS/HCC) POCT GLUCOSE Routine 01/17/2025 10:25 AM EDT Type 2 diabetes mellitus without complication, without long-term current use of insulin (CMS/HCC) PROPHYLAXIS - ADULT Routine 08/03/2024 1 1:00 AM EDT Dental calculus Dental plaque INTRAORAL - COMPLETE SERIES OF RADIOGRAPHIC IMAGES Routine 07/19/2024 10:30 AM EDT PERIODIC ORAL EVALUATION - ESTABLISHED PATIENT Routine 07/19/2024 10:30 AM EDT LIPID PANEL WITH REFLEX TO DIRECT LDL Routine 06/14/2024 1:37 PM EDT Mixed hyperlipidemia HM COLONOSCOPY Routine 11/05/2022 MAMMOGRAM GENERIC Routine 08/01/2020 12: 16 PM EDT ZZZ HISTORICAL HPV MRNA E6/E7 Routine 11/23/2017 10:06 AM EST from Last 3 Months or Most Recently Relevant to Health Maintenance Results * (ABNORMAL) CBC auto differential (01/17/2025 11:39 AM EDT) White Blood Count 7.5 4.8 - 10.8 X10*3/uL [facility] Red Blood Count 4.46 4.20 - 5.50 X10*6/uL [facility] Hemoglobin 12.9 12.0 - 16.0 g/dl [facility] Hematocrit 38.0 37.0 - 47.0 % [facility] Mean Corpuscular Volume 85.2 80.0 - 98.0 fL [facility] Mean Corpuscular Hemoglobin 28.9 27.0 - 33.0 pg [facility] Mean Corpuscular HGB Conc 33.9 31.0 - 35.0 g/dl [facility] Red Cell Distribution Width 12.5 11.0 - 16.0 % [facility] Platelet Count 155(L) 160 - 400 X10*3/uL [facility] Mean Platelet Volume 12.7(H) 9.4 - 12.3 fL [facility] Neutrophils Percent Auto 65.3 45 - 73 % [facility] Imm Gran Pct Auto 0.3 0.0 - 0.4 % [facility] Lymphocytes Percent Auto 25.7 20 - 40 % [facility] Monocytes Percent Auto 6.8 2 - 11 % [facility] Eosinophils Percent Auto 1.2 0 - 4 % [facility] Basophils Percent Auto 0.7 0 - 2 % [facility] NRBC Pct Auto 0.0 0.0 - 0.2 /100WBC [facility] Neutrophils Absolute Auto 4.9 2.0 - 8.3 x10*3/uL [facility] Imm Gran Abs Auto 0.02 0.00 - 0.03 X10*3/uL [facility] Lymphocytes Absolute Auto 1.9 1.2 - 4.9 X10*3/uL [facility] Monocytes Absolute Auto 0.5 0.1 - 1.2 X10*3/uL [facility] Eosinophils Absolute Auto 0.1 0.0 - 0.4 X10*3/uL [facility] Basophils Absolute Auto 0.1 0.0 - 0.2 X10*3/uL [facility] NRBC Abs Auto 0.000 0.0 - 0.012 X10*3/uL [facility] Blood Venous blood specimen / Unknown 01/17/2025 11:39 AM EDT 01/17/2025 1:33 PM EDT us Twyla Cedeño MD LAB BLOOD ORDERABLES Fin al Result [facility] [address] [place] [phone] * Rheumatoid Factor (01/17/2025 11:39 AM EDT) Rheumatoid Factor <13.0 <15.0 IU/mL [facility] Blood Venous blood specimen / Unknown 01/17/2025 11:39 AM EDT 01/17/2025 1:33 PM EDT us Twyla Cedeño MD LAB BLOOD ORDERABLES Fin al Result Performing Organization Address City/[facility]/ZIP Co de Phone Number [facility] [address] [place] [phone] * C-reactive Protein (01/17/2025 11:39 AM EDT) C Reactive Protein <0.10 < or = 0.50 mg/dL [facility] Blood Venous blood specimen / Unknown 01/17/2025 11:39 AM EDT 01/17/2025 1:33 PM EDT Twyla Cedeño MD LAB BLOOD ORDERABLES Fin al Result [facility] [address] [place] [phone] * Uric acid (01/17/2025 11:39 AM EDT) Pathologist [facility] Uric Acid 3.9 2.4 - 5.7 mg/dL [facility] Blood Venous blood specimen / Unknown 01/17/2025 11:39 AM EDT 01/17/2025 1:33 PM EDT Twyla Cedeño MD LAB BLOOD ORDERABLES Fin al Result Performing Organization Address City/[facility] Co de Phone Number [facility] [address] [place] [address] [phone] * (ABNORMAL) POCT HGB A1C (01/17/2025 10:25 AM EDT) Hemoglobin A1C 6.6(A) 4.0 - 6.0 % QC Media Lot # [id number] Lot# Expiration Date 876 Blood 01/17/2025 10:2 5 AM EDT Twyla Cedeño MD POINT OF CARE TEST ENTER /EDIT ORDERABLES Final Result * POCT Glucose (01/17/2025 10:25 AM EDT) Glucose Blood, POC 175 60 - 200 mg/dL QC Media Lot # [id number] Lot# Expiration Date 276 Blood Capillary blood specimen / Unknown 01/17/2025 10:25 AM EDT Twyla Cedeño MD POINT OF CARE TEST ENTER /EDIT ORDERABLES Final Result * Lipid Panel with Reflex to Direct LDL (06/14/2024 1:37 PM EDT) Triglycerides 106 <150 mg/dL [facility] Comment:Desirable Triglyceri de: less than 150 mg/dLBorderline High Triglyceride 150-199 mg/dLHigh Triglyceride: 200-499 mg/dLVery High Triglyceride: greater than or equal to 5OO mg/dL Cholesterol 137 <200 mg/dL [facility] Comment:Desirable Cholestero l: less than 200 mg/dLBorderline High Cholesterol: 200-239 mg/dLHigh Cholesterol: greater than 239 mg/dL LDL Cholesterol Calculated 75 <100 mg/dL [facility] Comment:Desirable LDL: less than 100 mg/dLNear Optimal/Above Optimal LDL: 110- 129 mg/dLBorderline High LDL: 130-159 mg/dLHigh LDL: 160-189 mg/dLVery High LDL: greater than or equal to 190 mg/dL HDL Cholesterol 41 >40 mg/dL [facility] Comment:Desirable HDL: great er than 40 mg/dL Note: This HDL assay may give artificially low results in patients with liver disease. Blood 06/14/2024 1:37 PM EDT 06/14/2024 4:32 PM EDT Twyla Cedeño MD LAB BLOOD ORDERABLES Fin al Result [facility] [address] [place] [phone] * (ABNORMAL) Hm Colonoscopy (11/05/2022) Colonoscopy Abnormal( A) Normal [facility] Comment:adenomatous polyps a nd Diverticulosis 11/05/2022 us Twyla Cedeño MD HEALTH MAINTENANCE Final Result [facility] [address] [place], [place] [phone] * Mammography Report 1 (08/01/2020 12:16 PM EDT) Anatomical Region Laterality Modality Breast Bilateral Mammography 08/01/2020 12:1 6 PM EDT Narrative 03/24/2021 10:12 AM EDT Refer to the Notes tab for result details [facility] Procedure: Mammography Report 1 Procedure Note Provider, MD Ravinder - 01/01/2023 Refer to the Notes tab for result details [facility] Procedure: Mammography Report 1 us Twyla Cedeño MD IMG BI PROCEDURES Final Result * HPV mRNA E6/E7 (11/23/2017 10:06 AM EST) HPV mRNA E6/E7 Not Detected NOT DETECTED [facility] Comment: This test was performed using the APTIMA(R) HPV Assay ([employer] This assay detects E6/E7 viral messenger RNA (mRNA) from 14 high-risk HPV types (16,18,31,33,35,39,45,51, 52,56,58,59,66,68). For additional information please refer to: http://education.NovoPedics.Rockpack/faq/VJJ581z8 (This link is being provided for informational/ educational purposes only.) Test Performed by [facility], [facility], [address] [place] [address] Narciso Diallo M.D., Ph.D., Director of Laboratories , [facility] [id number] Please note: ??Effective 06/21/2016, HPV testing will be performed using [employer]'s APTIMA test which targets mRNA. Detecting mRNA instead of DNA, as in older methods, offers significant improvements in specificity. 11/23/2017 10:0 6 AM EST us Farhana Porter CNM HISTORICAL/NON ORDERABLE LABS Final Result [facility] [address] from Last 3 Months or Most Recently Relevant to Health Maintenance Insurance HSN FULL [facility] C[facility] [employer] ST[employer] ADULT Care Teams Stroke Coordinator Relationship Specialty Start Date End Date Twyla Cedeño MD [address] [place] [phone] PCP - General Family Medicine 09/27/17
--- OUTSIDE RECORDS SUMMARY | 2025-01-17 14:11 | XMS_ITS | Encounter Summary ---
Author Organization [employer] Address [address] [place] [address] Care Team Providers Care Thread Dresser Name Role Phone Twyla Cedeño MD Primary Care Provider + Reason for Visit * Reason Onset Date Comments Chart prep 01/16/2025 Encounter Details Date Type Department Care Team ([facility] st Contact Info) Description 01/16/[address] [facility] MEDICINE [address] [place], [place] [phone] Twyla Cedeño MD [address] [place], [place] [phone] Chart prep Social History Tobacco Use Types Packs/Day Years [...] AM EDT documented as of this encounter Miscellaneous Notes * Telephone Encounter - Krista Toribio [place] - 01/16/2025 8:35 AM EDT Chart Prep Labs: done Images: not done Vaccines due: yes Referrals: appointment pending Screenings: mammogram and pap smear Overdue care gaps: A1c, Glucose, SDOH, PHQ-9, and Disability screen documented in this encounter Plan of Treatment Upcoming Encounters Date Type Department Care Team (Late st Contact Info) Description 02/04/2025 1:00 PM EDT Office Visit [facility] ADULT DENTAL [address] [place] [address] Nevaeh Hauser documented as of this encounter Visit Diagnoses Not on filedocumented in this encounter Care Teams Thread Dresser Relationship Specialty Start Date End Date Twyla Cedeño MD [address] [place] [address] PCP - General Family Medicine 09/27/17 documented as of this encounter
--- OUTSIDE RECORDS SUMMARY | 2025-01-17 14:11 | XMS_ITS | Encounter Summary ---
Author Organization [employer] Address [address] 7[address] [place] [address] Care Team Providers Care Desilverizer Name Role Phone Twyla Cedeño MD Primary Care Provider + Encounter Details Date Type Department Care Team (Latest Contact Info) Description 01/17/2025 Travel Social History Tobacco Use Types Packs/Day Years Used Date Smoking Tobacco: Never Smokeless Tobacco: Never Alcohol Use Standard Drinks/Week Comments Never 0 (1 standard drink = 0.6 oz pur e alcohol) Housing Stability Answer Date Recorded What is your housing situation today? I have seven [place] 05/28/[address] you li [...] 1:00 PM EDT Office Visit [facility] ADULT DENTAL [address] [place] [address] Nevaeh Hauser documented as of this encounter Visit Diagnoses Not on filedocumented in this encounter Care Teams Desilverizer Relationship Specialty Start Date End Date Twyla Cedeño MD [address] [place] [address] PCP - General Family Medicine 09/27/17 documented as of this encounter
--- OUTSIDE RECORDS SUMMARY | 2025-01-17 14:11 | XMS_ITS | Encounter Summary ---
Author Organization [employer] Address [address] [place] [address] Care Team Providers Care Drawer In Stitch Bonding Machine Name Role Phone Twyla Cedeño MD Primary Care Provider + Reason for Visit * Reason Comments Med Refill Encounter Details Date Type Department Care Team (Late st Contact Info) Description 06/15/2023 Refill [facility] MEDICINE [address] [place] [address] Twyla Cedeño MD [address] [place], [place] [phone] Social History Tobacco Use Types Packs/Day Years [...] Description 02/04/2025 1:00 PM EDT Office Visit [facility] ADULT DENTAL [address] [place] [address] Nevaeh Hauser documented as of this encounter Visit Diagnoses Not on filedocumented in this encounter Care Teams Drawer In Stitch Bonding Machine Relationship Specialty Start Date End Date Twyla Cedeño MD [address] [place] [phone] PCP - General Family Medicine 09/27/17 documented as of this encounter
--- OUTSIDE RECORDS SUMMARY | 2025-01-17 14:11 | XMS_ITS | Encounter Summary ---
Author Organization [employer] Address [address] 7[address] [place] [address] Care Team Providers Care Brick Baker Name Role Phone Twyla Cedeño MD Primary Care Provider + Encounter Details Date Type Department Care Team (Latest Contact Info) Description 03/26/2021 Abstract [facility] CONVERSIONS Dental, Provider, DDS Social History Tobacco Use Types Packs/Day Years Used Date Smoking Tobacco: Never Assessed Comments Unknown Sex and Gender Information Value [...] Description 02/04/2025 1:00 PM EDT Office Visit [facility] ADULT DENTAL [address] [place] [address] Nevaeh Hauser documented as of this encounter Visit Diagnoses Not on filedocumented in this encounter Care Teams Brick Baker Relationship Specialty Start Date End Date Twyla Cedeño MD [address] [place], [place] [phone] PCP - General Family Medicine 09/27/17 documented as of this encounter
--- OUTSIDE RECORDS SUMMARY | 2025-01-17 14:11 | XMS_ITS | Encounter Summary ---
Author Organization [employer] Address [address] 7[address] [place] [address] Care Team Providers Care Director Of Market Analysis Name Role Phone Twyla Cedeño MD Primary Care Provider + Encounter Details Date Type Department Care Team (Latest Contact Info) Description 06/02/2022 Abstract [facility] CONVERSIONS Dental, Provider, DDS Social History Tobacco [...] Description 02/04/2025 1:00 PM EDT Office Visit [facility] ADULT DENTAL [address] [place] [address] Nevaeh Hauser documented as of this encounter Visit Diagnoses Not on filedocumented in this encounter Care Teams Director Of Market Analysis Relationship Specialty Start Date End Date Twyla Cedeño MD [address] [place], [place] [phone] PCP - General Family Medicine 09/27/17 documented as of this encounter
--- OUTSIDE RECORDS SUMMARY | 2025-01-17 14:11 | XMS_ITS | Encounter Summary ---
Author Organization [employer] Address [address] [place] [address] Care Team Providers Care Eap Specialist Name Role Phone Twyla Cedeño MD Primary Care Provider + Reason for Visit * Reason Comments Med Refill Encounter Details Date Type Department Care Team ([facility] st Contact Info) Description 05/30/2024 Refill [facility] DIABETES/NUTRITION [address] [place], [place] [phone] Twyla Cedeño MD [address] [place] [address] Tinea corporis Social History Tobacco Use Types Packs/Day Years [...] 1:00 PM EDT Office Visit [facility] ADULT DENTAL [address] [place] [address] Nevaeh Hauser documented as of this encounter Visit Diagnoses Diagnosis Tinea corporis Dermatophytosis of the body documented in this encounter Care Teams Eap Specialist Relationship Specialty Start Date End Date Twyla Cedeño MD [address] [place] [address] PCP - General Family Medicine 09/27/17 documented as of this encounter
--- OUTSIDE RECORDS SUMMARY | 2025-01-17 14:11 | XMS_ITS | Encounter Summary ---
Author Organization [employer] Address [address] [place] [address] Care Team Providers Care Dean Of Admissions Name Role Phone Twyla Cedeño MD Primary Care Provider + Reason for Visit * Reason Comments Diabetes Encounter Details Date Type Department Care Team (Late st Contact Info) Description 01/17/2025 10:30 AM EDT Office Visit [facility] MEDICINE [address] [place], [place] [phone] Twyla Cedeño MD [address] [place] [address] Type 2 diabetes mellitus without complication, without long-term current use of insulin (CMS/HCC) (Primary Dx); Mononeuropathy due to type 2 diabetes mellitus (CMS/HCC); Tendinitis of left rotator cuff; Tenosynovitis of finger and hand; Rosacea Social History Tobacco Use Types Packs/Day [...] AM EDT documented as of this encounter Last Filed Vital Signs Vital Sign Reading Time Taken Comments Blood Pressure 137/69 01/17/2025 10:25 AM EDT Pulse 63 01/17/2025 10:25 AM EDT Temperature 36.1 ??C (97 ??F) 01/17/2025 10:25 AM EDT Respiratory Rate - - Oxygen Saturation 99% 01/17/2025 10:25 AM EDT Inhaled Oxygen Concentration - - Weight 70 kg (154 lb 6 oz) 01/17/2025 10:25 AM E DT Height 154.9 cm (5' 1 ) 01/17/2025 10:25 AM EDT Body Mass Index 29.17 01/17/2025 10:25 AM EDT documented in this encounter Miscellaneous Notes * Patient Education Note - Twyla Cedeño MD - 01/17/2025 3:11 PM EDT Images from the original note were not included. Patient Education Table of Contents Tenosynovitis To view videos and all your education online visit, [email or web address] or scan this QR code with your smartphone. Access to this content will in one year. Tenosynovitis Tenosynovitis is inflammation of a tendon and of the sleeve of tissue that covers the tendon (tendon sheath). A tendon is a cord of tissue that connects muscle to bone. Normally, a tendon slides smoothly inside its tendon sheath. Tenosynovitis limits movement of the tendon and surrounding tissues, which may cause pain, swelling, and stiffness. Tenosynovitis can affect any tendon and tendon sheath. Commonly affected areas include tendons in the: Wrist. Arm. Hand. Hip. Leg. Foot. Shoulder. What are the causes? The main cause of this condition is wear and tear over time that results in slight tears in the tendon. Other possible causes include: An injury to the tendon or tendon sheath. A disease that causes inflammation in the body. An infection that spreads to the tendon and tendon sheath from a skin wound. An infection in another part of the body that spreads to the tendon and tendon sheath through the blood. What increases the risk? The following factors may make you more likely to develop this condition: Having rheumatoid arthritis, gout, or diabetes. Using IV drugs. Doing physical activities that can cause tendon overuse and stress. Having gonorrhea. What are the signs or symptoms? Symptoms of this condition depend on the cause. Symptoms may include: Pain with movement. Pain when pressing on the tendon and tendon sheath. Swelling. Stiffness. If tenosynovitis is caused by an infection, additional symptoms may include: Fever. Redness. Warmth. How is this diagnosed? This condition may be diagnosed based on your medical history and a physical exam. You also may have: Blood tests. Imaging tests, such as: ? MRI. ? Ultrasound. A sample of fluid removed from inside the tendon sheath to be checked in a lab. How is this treated? Treatment for this condition depends on the cause. If tenosynovitis is not caused by an infection, treatment may include: Rest. Keeping the tendon in place (immobilization) in a splint, brace, or sling. Taking NSAIDs, such as ibuprofen, to reduce pain and swelling. A shot (injection) of a steroid medicine to help reduce pain and swelling. Icing or applying heat to the affected area. Physical or occupational therapy. Surgery to release the tendon in the sheath, to release the area that the tendon rests in, or to repair damage to the tendon or tendon sheath. Surgery may be done if other treatments do not help relieve symptoms. If tenosynovitis is caused by infection, treatment may include antibiotic medicine given through anIV. In most cases, surgery may be needed to drain fluid from the tendon sheath, to clean and rinse out (irrigate) the tendon sheath, or to remove the tendon sheath. Follow these instructions at home: If you have a removable splint, brace, or sling: Wear the splint, brace, or sling as told by your health care provider. Remove it only as told by your health care provider. Check the skin around the splint, brace, or sling every day. Tell your health care provider about any concerns. Loosen the splint, brace, or sling if your fingers or toes tingle, become numb, or turn cold and blue. Keep the splint, brace, or sling clean. If the splint, brace, or sling is not waterproof: ? Do not let it get wet. ? Cover it with a watertight covering when you take a bath or shower. Managing pain, stiffness, and swelling If directed, put ice on the affected area. To do this: ? If you have a removable splint, brace, or sling, remove it as told by your health care provider. ? Put ice in a plastic bag. ? Place a towel between your skin and the bag. ? Leave the ice on for 20 minutes, 2?3 times a day. ? Remove the ice if your skin turns bright red. This is very important. If you cannot feel pain, heat, or cold, you have a greater risk of damage to the area. Move the fingers or toes of the affected limb often, if this applies. This can help to reduce stiffness and swelling. If directed, raise (elevate) the affected area above the level of your heart while you are sitting or lying down. If directed, apply heat to the affected area before you exercise or do therapy. Use the heat sourcethat your health care provider recommends, such as a moist heat pack or a heating pad. ? Place a towel between your skin and the heat source. ? Leave the heat on for 20?30 minutes. ? Remove the heat if your skin turns bright red. This is especially important if you are unable to feel pain, heat, or cold. You have a greater risk of getting burned. Activity Return to your normal activities as told by your health care provider. Ask your health care provider what activities are safe for you. Rest the affected area as told by your health care provider. Avoid using the affected area while you are having symptoms. Do not use the injured limb to support your body weight until your health care provider says that you can. If physical therapy was prescribed, do exercises as told by your health care provider. General instructions Take [id number] and prescription medicines only as told by your health care provider. Ask your health care provider when it is safe to drive if you have a splint, brace, or sling on anypart of your arm or leg. Keep all follow-up visits. This is important. Contact a health care provider if: Your symptoms are not improving or are getting worse. You have a fever and worsening of any of the following symptoms: ? Pain. ? Redness. ? Warmth. ? Swelling. Get help right away if: Your fingers or toes become numb or turn blue. Summary Tenosynovitis is inflammation of a tendon and of the sleeve of tissue that covers the tendon (tendon sheath). Treatment for this condition depends on the cause. Treatment may include rest, medicines, physical therapy, or surgery. Contact a health care provider if your symptoms are not improving or are getting worse. Keep all follow-up visits. This information is not intended to replace advice given to you by your health care provider. Make sure you discuss any questions you have with your health care provider. Document Released: 2006-09-26 Document Updated: 2022-06-02 Document Reviewed: 2022-06-02 [employer] Patient Education ? 2024 [employer] documented in this encounter Plan of Treatment Upcoming Encounters Date Type Department Care Team (Late st Contact Info) Description 02/04/2025 1:00 PM EDT Office Visit [facility] ADULT DENTAL [address] [place] [address] Nevaeh Hauser Scheduled Orders Name Type Priority Associated Diagnoses Orde r Schedule TWYLA Screen,IFA, with Reflex to Titer and Pattern Lab Routine Tendinitis of left rotator cuff Tenosynovitis of finger and hand Expected: 01/17/2025 (Approximate), Expires: 01/17/2026 Sed Rate by Modified [place] Lab Routine Tendinitis of left rotator cuff Tenosynovitis of finger and hand Expected: 01/17/2025 (Approximate), Expires: 01/17/2026 Hepatitis Panel, General Lab Routine Tendinitis of left rotator cuff Tenosynovitis of finger and hand Expected: 01/17/2025 (Approximate), Expires: 01/17/2026 Lyme Disease Ab with Reflex to Blot (IgG, IgM) Lab Routine Tendinitis of left rotator cuff Tenosynovitis of finger and hand Expected: 01/17/2025, Expires: 01/17/2026 documented as of this encounter Procedures Procedure Name Priority Date/Time Associated Diagnosis [...] complication, without long-term current use of insulin ([facility]) POCT GLUCOSE Routine 01/17/2025 10:25 AM EDT Type 2 diabetes mellitus without complication, without long-term current use of insulin ([facility]) documented in this encounter Results * (ABNORMAL) CBC auto differential (01/17/2025 11:39 AM EDT) White Blood Count 7.5 4.8 - 10.8 X10*3/uL [facility] Red Blood Count 4.46 4.20 - 5.50 X10*6/uL [facility] Hemoglobin 12.9 12.0 - 16.0 g/dl [facility] Hematocrit 38.0 37.0 - 47.0 % [facility] Mean Corpuscular Volume 85.2 80.0 - 98.0 fL [facility] Mean Corpuscular Hemoglobin 28.9 27.0 - 33.0 pg [facility] Mean Corpuscular HGB Conc 33.9 31.0 - 35.0 g/dl [facility] Red Cell Distribution Width 12.5 11.0 - 16.0 % [facility] Platelet Count 155(L) 160 - 400 X10*3/uL [facility] Mean Platelet Volume 12.7(H) 9.4 - 12.3 fL [facility] Neutrophils Percent Auto 65.3 45 - 73 % [facility] Imm Gran Pct Auto 0.3 0.0 - 0.4 % [facility] Lymphocytes Percent Auto 25.7 20 - 40 % [facility] Monocytes Percent Auto 6.8 2 - 11 % [facility] Eosinophils Percent Auto 1.2 0 - 4 % [facility] Basophils Percent Auto 0.7 0 - 2 % [facility] NRBC Pct Auto 0.0 0.0 - 0.2 /100WBC [facility] Neutrophils Absolute Auto 4.9 2.0 - 8.3 x10*3/uL [facility] Imm Gran Abs Auto 0.02 0.00 - 0.03 X10*3/uL [facility] Lymphocytes Absolute Auto 1.9 1.2 - 4.9 X10*3/uL [facility] Monocytes Absolute Auto 0.5 0.1 - 1.2 X10*3/uL [facility] Eosinophils Absolute Auto 0.1 0.0 - 0.4 X10*3/uL [facility] Basophils Absolute Auto 0.1 0.0 - 0.2 X10*3/uL [facility] NRBC Abs Auto 0.000 0.0 - 0.012 X10*3/uL [facility] Blood Venous blood specimen / Unknown 01/17/2025 11:39 AM EDT 01/17/2025 1:33 PM EDT Twyla Cedeño MD LAB BLOOD ORDERABLES Fin al Result Performing Organization Address [facility] Co de Phone Number [facility] [address] [place] [phone] * Uric acid (01/17/2025 11:39 AM EDT) Uric Acid 3.9 2.4 - 5.7 mg/dL [facility] Blood Venous blood specimen / Unknown 01/17/2025 11:39 AM EDT 01/17/2025 1:33 PM EDT Twyla Cedeño MD LAB BLOOD ORDERABLES Fin al Result Performing Organization Address [facility] de Phone Number [facility] [address] [place] [phone] * Rheumatoid Factor (01/17/2025 11:39 AM EDT) Rheumatoid Factor <13.0 <15.0 IU/mL [facility] Blood Venous blood specimen / Unknown 01/17/2025 11:39 AM EDT 01/17/2025 1:33 PM EDT Twyla Cedeño MD LAB BLOOD ORDERABLES Fin al Result Performing Organization Address [facility] Co de Phone Number [facility] [address] [place] [phone] * C-reactive Protein (01/17/2025 11:39 AM EDT) C Reactive Protein <0.10 < or = 0.50 mg/dL [facility] Blood Venous blood specimen / Unknown 01/17/2025 11:39 AM EDT 01/17/2025 1:33 PM EDT Twyla Cedeño MD LAB BLOOD ORDERABLES Fin al Result [facility] [address] [place] [phone] * (ABNORMAL) POCT HGB A1C (01/17/2025 10:25 AM EDT) Hemoglobin A1C 6.6(A) 4.0 - 6.0 % QC Media Lot # [id number] Lot# Expiration Date Blood 01/17/2025 10:2 5 AM EDT Twyla Cedeño MD POINT OF CARE TEST ENTER /EDIT ORDERABLES Final Result * POCT Glucose (01/17/2025 10:25 AM EDT) Glucose Blood, POC 175 60 - 200 mg/dL [employer] Lot # [id number] Lot# Expiration Date Blood Capillary blood specimen / Unknown 01/17/2025 10:25 AM EDT Twyla Cedeño MD POINT OF CARE TEST ENTER /EDIT ORDERABLES Final Result documented in this encounter Visit Diagnoses Diagnosis Type 2 diabetes mellitus without complication, without long-term current use of insulin ([facility])- Primary Mononeuropathy due to type 2 diabetes mellitus (CMS/[facility]) Tendinitis of left rotator cuff Tenosynovitis of finger and hand Rosacea documented in this encounter Care Teams Dean Of Admissions Relationship Specialty Start Date End Date Twyla Cedeño MD [address] [place] [phone] PCP - General Family Medicine 09/27/17 documented as of this encounter
--- OUTSIDE RECORDS SUMMARY | 2025-01-17 14:11 | XMS_ITS | Encounter Summary ---
Author Organization [employer] Address [address] [place] [address] Care Team Providers Care Quote Clerk Name Role Phone Twyla Cedeño MD Primary Care Provider + Encounter Details Date Type Department Care Team (Latest Contact Info) Description 11/03/2018 Abstract [facility] CONVERSIONS Dental, Provider, DDS Social History [...] Description 02/04/2025 1:00 PM EDT Office Visit [facility] ADULT DENTAL [address] [place] [address] Nevaeh Hauser documented as of this encounter Visit Diagnoses Not on filedocumented in this encounter Care Teams Quote Clerk Relationship Specialty Start Date End Date Twyla Cedeño MD [address] [place] [address] PCP - General Family Medicine 09/27/17 documented as of this encounter
--- OUTSIDE RECORDS SUMMARY | 2025-01-17 14:12 | XMS_ITS | Encounter Summary ---
Author Organization [employer] Address [address] [place] [address] Care Team Providers Care Electrification Adviser Name Role Phone Twyla Cedeño MD Primary Care Provider + Reason for Visit * Reason Comments Med Refill Encounter Details Date Type Department Care Team ([facility] st Contact Info) Description 04/09/2024 Refill [facility] MEDICINE [address] [place], [place] [phone] Twyla Cedeño MD [address] [place], [place] [phone] Type 2 diabetes mellitus without complication, without long-term current use of insulin ([facility]) Social History Tobacco Use Types Packs/Day Years Used Date Smoking Tobacco: Never Smokeless Tobacco: Never Alcohol Use Standard Drinks/Week Comments Never 0 (1 standard drink = 0.6 oz pur e alcohol) Housing Stability Answer Date Recorded What is your housing situation today? I have seven navarro 08/03/[address] you li ve. Do you have problems with any of the following? None of the above 08/03/2023 Food Insecurity Answer Date Recorded Within the past 12 months, y ou worried that your food would run out before you got money to buy more: Never True 08/03/2023 Within the past 12 months,th e food you bought just didn't last and you didn't have enough money to get more: Never True Transportation Answer Date Recorded In the past 12 months, has l ack of transportation kept you from medical appts, meetings, work or from getting things needed for daily living? No 08/03/2023 Utilities Answer Date Recorded In the past 12 months, has t he electric, gas, oil or water company threatened to shut off services in your home? No 08/03/2023 Depression Answer Date Recorded Patient Health Questionnaire-2 [...] Description 02/04/2025 1:00 PM EDT Office Visit [facility] ADULT DENTAL [address] [place] [address] Nevaeh Hauser documented as of this encounter Visit Diagnoses Diagnosis Type 2 diabetes mellitus without complication, without long-term current use of insulin ([facility]) documented in this encounter Care Teams Electrification Adviser Relationship Specialty Start Date End Date Twyla Cedeño MD [address] [place] [address] PCP - General Family Medicine 09/27/17 documented as of this encounter
--- OUTSIDE RECORDS SUMMARY | 2025-01-17 14:12 | XMS_ITS | Encounter Summary ---
Author Organization [employer] Address [address] [place] [address] Care Team Providers Care Automatic Edger Name Role Phone Twyla Cedeño MD Primary Care Provider + Reason for Visit * Reason Comments Med Refill Encounter Details Date Type Department Care Team (Late st Contact Info) Description 04/30/2024 Refill [facility] MED & PEDS [address] [place], [place] [phone] Janny Wheatley MD [address] [place] [address] Social History Tobacco Use Types Packs/Day Years [...] Description 02/04/2025 1:00 PM EDT Office Visit [facility] ADULT DENTAL [address] [place] [address] Nevaeh Hauser documented as of this encounter Visit Diagnoses Not on filedocumented in this encounter Care Teams Automatic Edger Relationship Specialty Start Date End Date Twyla Cedeño MD [address] [place] [address] PCP - General Family Medicine 09/27/17 documented as of this encounter
--- OUTSIDE RECORDS SUMMARY | 2025-01-17 14:12 | XMS_ITS | Encounter Summary ---
Author Organization [employer] Address [address] [place] [address] Care Team Providers Care Manager Social Work Name Role Phone Twyla Cedeño MD Primary Care Provider + Reason for Visit * Reason Comments Med Refill Encounter Details Date Type Department Care Team ([facility] st Contact Info) Description 07/27/2024 Refill [facility] DIABETES/NUTRITION [address] [place], [place] [phone] Twyla Cedeño MD [address] [place] [address] Tinea corporis Social History Tobacco Use Types [...] Access Answer Date Recorded Internet Access Q1 Yes 06/11/2024 Internet Access Q2 Not on file 06/11/2024 Comments No Sex and Gender Information Value [...] Visit [facility] ADULT [facility] [address] [place] [address] Nevaeh Hauser documented as of this encounter Visit Diagnoses Diagnosis Tinea corporis Dermatophytosis of the body documented in this encounter Care Teams Manager Social Work Relationship Specialty Start Date End Date Twyla Cedeño MD [address] [place] [address] PCP - General Family Medicine 09/27/17 documented as of this encounter
[2025-01-17 14:35] LABS: Erythrocyte Sedimentation Rate 12 MM/HR (0-20)
[2025-01-18 04:23] LABS: HBc Num1 0.12 S/CO (0.00-0.79); HBsAGNum1 0.33 S/CO (0.00-0.99); Hepatitis B Core Antibody Nonreactive (Nonreactive); Hepatitis B Surface Antigen Negative (Negative); ~HepC Num1 0.19 S/CO (0.00-0.79); ~Hepatitis B Surface Antibody NONREACTIVE (Nonreactive); ~Hepatitis C Antibody Nonreactive (Nonreactive)
[2025-01-18 11:14] LABS: Lyme Blot 1.75 index
[2025-01-18 11:52] LABS: Lyme Abs Screen POSITIVE
[2025-01-18 20:58] LABS: 18 KD (IgG) Band NON-REACTIVE; 23 KD (IgG) Band NON-REACTIVE; 23 KD (IgM) Band REACTIVE; 28 KD (IgG) Band NON-REACTIVE; 30 KD (IgG) Band NON-REACTIVE; 39 KD (IgM) Band NON-REACTIVE; 39KD (IgG) Band NON-REACTIVE; 41 KD (IgM) Band NON-REACTIVE; 41KD (IgG) Band NON-REACTIVE; 45 KD (IgG) Band NON-REACTIVE; 58 KD (IgG) Band NON-REACTIVE; 66 KD (IgG) Band NON-REACTIVE; 93 KD (IgG) Band NON-REACTIVE; Lyme IgG Blot Interp NEGATIVE (NEGATIVE); Lyme IgM Blot Interp NEGATIVE (NEGATIVE)
[2025-01-22 08:06] LABS: Hepatitis A Antibody IgM 0.23 Index (0-0.79); ~Hepatitis A Antibody IgM Nonreactive (Nonreactive)
[2025-01-23 10:39] LABS: Anti Nuclear Antibody Screen NEGATIVE (NEGATIVE)
== END 2025-01-17 11:37 | disposition home or self-care (01) ==
LOC: HO.HHCL 11:36
PROVIDERS: Visit Provider Internal Medicine
DX: M75.82 Other shoulder lesions, left shoulder (principal); M65.949 Unspecified synovitis and tenosynovitis, unspecified hand
CPT/HCPCS: 36415; 84550; 85025; 85652; 86038; 86140; 86431; 86617; 86618; 86704; 86706; 86709; 86803; 87340

== ENCOUNTER → 2025-02-13 12:18 | Outpatient (AMB) | payer MEDICAID, SELFPAY ==
--- NOTE | 2025-02-13 12:49 | MHC.OFFVIS ---
Vital Signs 02/13/25 12:52 Height 5 ft 1 in Weight 153 lb 14.122 oz BMI 29.1 BP 110/60 Blood Pressure Location Lt brachial Position Sitting Pulse 70 Pulse Source Monitor Intake Visit Reasons: 1 yr f/up DC Intake Note: 1 yr f.up Green Marketing Analyst Required: No Accompanied by: Daughter Allergies No Known Allergies Allergy (Verified 02/14/24 10:18) Medication List - Last Reconciled 02/13/25 by Raza Goodwin MD acetaminophen ER 650 mg PO Q8H atorvastatin 20 mg PO BEDTIME 90 days blood sugar diagnostic (FreeStyle Lite Strips) As directed calcium carbonate-vitamin D3 500 mg-5 mcg (200 unit) (Oyster Shell Calcium-Vitamin D3) 1 tab PO clotrimazole 1% appl topical diclofenac sodium 1% 4 grams topical QID famotidine 40 mg PO BEDTIME PRN lancets (TRUEplus Lancets) As directed lisinopril 5 mg PO DAILY loratadine 10 mg PO DAILY metoprolol succinate ER 25 mg PO DAILY 90 days metronidazole 0.75% topical saxagliptin 2.5 mg PO DAILY HPI Comments Details: Pleasant 59-year-old lady from [place] who is here for follow-up. She has history of atypical chest pains as well as left shoulder pain due to musculoskeletal issues. Previously had echocardiography which was normal. Also has stress testing which did not show any significant concerns. Blood pressure control is good. She is taking medications regularly. on follow-up she continues to have bilateral shoulder discomfort. She is taking atorvastatin 20 mg daily. I have advised her to hold the atorvastatin for a month and see if symptoms improve. Otherwise denying any significant issues. 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 Review of Systems Const Denies chills, Denies fatigue, Denies fever(s), Denies frequent falls, Denies weakness, Denies weight gain and Denies weight loss ENT Denies dizziness Card Denies chest pain, Denies leg edema, Denies lightheadedness, Denies palpitations, Denies dyspnea and Denies dyspnea on exertion Resp Denies cough, Denies dyspnea and Denies dyspnea on exertion GI Denies hematochezia Musc Denies abnormal gait, Denies muscle weakness, Denies numbness, Denies radiating pain into limb and Denies tingling Neuro Denies abnormal gait, Denies dizziness, Denies frequent falls, Denies numbness, Denies tingling and Denies weakness Endo Denies fatigue and Denies palpitations Physical Exam Vital Signs: Last Vital Signs Pulse 70 02/13/25 12:52 BP 110/60 02/13/25 12:52 BMI result Body Mass Index 29.1 GENERAL APPEARANCE: in no acute distress, pleasant. NECK: no carotid bruit, no jugular venous distention. SKIN: no suspicious lesions, warm and dry. HEART: no murmurs, regular rate and rhythm. LUNGS: clear to auscultation bilaterally. ABDOMEN: soft, nontender. EXTREMITIES: no edema. PERIPHERAL PULSES: equal. NEUROLOGIC: No gross deficits, AAO X 3 Office Procedures EKG Details: sinus rhythm 70 beats per minute, normal axis, moderate voltage criteria for left ventricular hypertrophy, QTC 410 milliseconds. [id number], Complete Assessment & Plan Assessment & Plan (1) Hypertension: Code(s): I10 - Essential (primary) hypertension Category: Medical (2) Hyperlipidemia: Code(s): E78.5 - Hyperlipidemia, unspecified Category: Medical Plan [age] year female who is here for follow-up. She has no chest discomfort on follow-up. She is denying any shortness of breath. Her main complaint is bilateral shoulder pain which happens with shoulder movement. At times this can last for hours and hours. Unlikely to be an ischemic symptom. blood pressure is well controlled. I have advised her to hold atorvastatin for the next month and see how she feels. If she had significant improvement in shoulder pain then maybe statins are playing a role in this although seems unlikely as she has clear issues with shoulder movement. Thank you for allowing me to participate in the care of your patient. Please feel free to contact me if you have any questions. Medications: On Hold atorvastatin Hold Comment: Doctor's Order 20 mg PO BEDTIME 90 days 90 tabs 4RF Coding Level of Care Code Est Pt Level 3 (38505) Diagnoses Hypertension I10 Hyperlipidemia E78.5 CPT Codes EKG - CPT: 22393-[id number], Complete ([id number])
[2025-02-13 12:52] VITALS: BP 110/60; PULSE 70; BMI 29.1
--- OUTSIDE RECORDS SUMMARY | 2025-02-13 13:31 | XMS_ITS | Encounter Summary ---
Author Organization [employer] Address [address] [place] [address] Care Team Providers Care Digital Director Name Role Phone Twyla Cedeño MD Primary Care Provider + Reason for Visit * Reason Comments Med Refill Encounter Details Date Type Department Care Team ([facility] st Contact Info) Description 05/30/2024 Refill [facility] DIABETES/NUTRITION [address] [place], [place] [phone] Twyla Cedeño MD [address] [place] [address] Tinea corporis Social History Tobacco Use Types [...] Care Team (Late st Contact Info) Description 03/20/2025 2:30 PM EDT Office Visit [facility] ADULT DENTAL [address] [place] [address] Tyrone Miller DDS [address] [place] [address] 06/05/2025 10:15 AM EDT Office Visit [facility] MEDICINE [address] [place] [address] Twyla Cedeño MD [address] [place] [phone] documented as of this encounter Visit Diagnoses Diagnosis Tinea corporis Dermatophytosis of the body documented in this encounter Care Teams Digital Director Relationship Specialty Start Date End Date Twyla Cedeño MD [address] [place] [phone] PCP - General Family Medicine 09/27/17 documented as of this encounter
--- OUTSIDE RECORDS SUMMARY | 2025-02-13 13:31 | XMS_ITS | Encounter Summary ---
Author Organization [employer] Address [address] [facility] [address] [place] [address] Care Team Providers Care Quality Cloth Tester Name Role Phone Twyla Cedeño MD Primary Care Provider + Reason for Visit * Reason Comments Med Refill Encounter Details Date Type Department Care Team (Late st Contact Info) Description 06/15/2023 Refill [facility] MEDICINE [address] [place] [address] Twyla Cedeño MD [address] [place] [address] Social History Tobacco Use Types Packs/Day Years [...] Description 03/20/2025 2:30 PM EDT Office Visit [facility] ADULT DENTAL [address] [place] [address] Tyrone Miller DDS [address] [place], [place] [phone] 06/05/2025 10:15 AM EDT Office Visit [facility] MEDICINE [address] [place], [place] [phone] Twyla Cedeño MD [address] [place] [phone] documented as of this encounter Visit Diagnoses Not on filedocumented in this encounter Care Teams Quality Cloth Tester Relationship Specialty Start Date End Date Twyla Cedeño MD [address] [place] [phone] PCP - General Family Medicine 09/27/17 documented as of this encounter
--- OUTSIDE RECORDS SUMMARY | 2025-02-13 13:31 | XMS_ITS | Encounter Summary ---
Author Organization [employer] Address [address] [place] [address] Care Team Providers Care Stonecutter Assistant Name Role Phone Twyla Cedeño MD Primary Care Provider + Reason for Visit * Reason Onset Date Comments May recall 02/12/2025 Encounter Details Date Type Department Care Team ([facility] st Contact Info) Description 02/12/2025 Telephone [facility] MEDICINE [address] [place], [place] [phone] Twyla Cedeño MD [address] [place], [place] [phone] May recall Social History Tobacco Use Types Packs/Day Years [...] Telephone Encounter - Krista Toribio [place] - 02/12/2025 2:06 PM EDT Telephone call to patient to schedule the following recall: Visit type: Follow up Appointment notes: fu dm/OA Patient agree to appointment on 06/05/25 at 10:15 AM with Gala. documented in this encounter Plan of Treatment Upcoming Encounters Date Type Department Care Team (Late st Contact Info) Description 03/20/2025 2:30 PM EDT Office Visit [facility] ADULT DENTAL [address] [place] [phone] Tyrone Miller DDS [address] [place] [address] 06/05/2025 10:15 AM EDT Office Visit [facility] MEDICINE [address] [place] [phone] Twyla Cedeño MD [address] [place] [phone] documented as of this encounter Visit Diagnoses Not on filedocumented in this encounter Care Teams Stonecutter Assistant Relationship Specialty Start Date End Date Twyla Cedeño MD [address] [place] [phone] PCP - General Family Medicine 09/27/17 documented as of this encounter
--- OUTSIDE RECORDS SUMMARY | 2025-02-13 13:31 | XMS_ITS | Clinical Summary ---
Author Organization [employer] Address [address] [facility] [address] [place] [address] Care Team Providers Care Security Messenger Name Role Phone Bobo Cedeño MD Primary Care Provider + Allergies Active Allergy Reactions Criticality Noted Date Comments [place] Oil 06/14/2024 Citrullus Vulgaris 02/04/2025 Medications acetaminophen (Tylenol 8 Hour) 650 MG ER tablet TAKE 1 TO 2 TABLETS BY MOUTH EVERY 8 HOURS NEEDED SWALLOW WHOLE WITH WATER DO NOT BREAK, CRUSH, DISSOLVE OR CHEW 2 Active Blood Pressure Monitoring (Omron 3 Series BP Monitor) device USE TO CHECK BLOOD PRESSURE EVERY DAY 2 Active Sodium Fluoride (PreviDent) 1.1 % gel Use at bed time every night spit do not rinse for 30 min. 9 Active zoster vaccine, live, (Zostavax) 74157 UNT/0.65ML injection inject 0.65 milliliter by subcutaneous route once 9 Active Continuous Glucose Multiple Drum Sander (FreeStyle Sony 2 [place]) device Scan sensor every 8 hours 1 each 4 Active Continuous Glucose Sensor (FreeStyle Sony 2 Sensor) [facility] Apply 1 sensor every 14 days 2 each 11 4 Active glucose blood (FreeStyle Precision Georgi Test) test strip Use to test blood sugar 3 times daily 100 each 1 4 Active glucose blood (FREESTYLE LITE) test stripIndications :Type 2 diabetes mellitus without complication, without long-term current use of insulin ([facility]) TEST BLOOD SUGAR THREE TIMES DAILY 100 strip 1 4 Active famotidine (Pepcid) 40 MG tabletIndication s:Gastroesophage al reflux disease with esophagitis without hemorrhage TAKE 1 TABLET BY MOUTH AT BEDTIME NEEDED 90 tablet 1 4 Active TRUEplus Lancets 33G miscIndications: Type 2 diabetes mellitus without complication, without long-term current use of insulin ([facility]) TEST BLOOD SUGAR THREE TIMES DAILY 100 each 11 4 Active Menthol, Topical Analgesic, (Icy Hot) 5 % patch Use on affected area 14 patch 4 Active meloxicam (Mobic) 15 MG tablet Take 1 tablet (15 mg) by mouth Once per day. 30 tablet 4 025 Active Antacid Extra Strength 750 MG chewable tablet CHEW 1 TABLET BY MOUTH TWICE DAILY 180 tablet 1 5 Active Diclofenac Sodium 1 % gelIndications:C hronic left shoulder pain APPLY 4 GRAMS TOPICALLY TO AFFECTED AREA(S) FOUR TIMES DAILY 100 g 3 5 Active atorvastatin (Lipitor) 20 MG tabletIndication s:Type 2 diabetes mellitus without complication, without long-term current use of insulin ([facility]) TAKE 1 TABLET BY MOUTH AT BEDTIME 90 tablet 1 5 Active metoprolol succinate XL (Toprol-XL) 25 MG 24 hr tabletIndication s:Essential hypertension TAKE 1 TABLET BY MOUTH EVERY MORNING 90 tablet 1 5 Active loratadine (Claritin) 10 MG tablet TAKE 1 TABLET BY MOUTH EVERY DAY 90 tablet 1 5 Active lisinopril 5 MG tabletIndication s:Essential hypertension TAKE 1 TABLET BY MOUTH EVERY MORNING 90 tablet 1 5 Active Januvia 50 MG tablet TAKE 1 TABLET BY MOUTH EVERY MORNING 30 tablet 1 5 Active Active Problems Problem Noted Date Diagnosed Date Tenosynovitis of finger and hand 01/17/2025 Assessment & Plan (01/17/2025 2:54 PM EDT): Rule out RA, order labs She has progressive limitation for left arm function and the limits ADLs and IADLs. I have discussed with her her daughter that she does need support and assistance at home but home care services do not seem to be covered at this time. They will check with insurance rn case manager hospice or community services in the area. I spoke with her home services brand manager and she will discussed with patient regarding home care options at this time, they will get back to us after home care evaluation Use left hand brace and take Tylenol as needed, refer to OT Varicose veins of both lower extremities with pa in 06/14/2024 Assessment & Plan (06/14/2024 3:15 PM EDT): On lower extremities, advised to use compression stockings to knee level Generalized abdominal pain 04/24/2023 Mononeuropathy due to type 2 diabetes mellitus 0 04/24/2023 Assessment & Plan (01/23/2025 6:38 PM EDT): On the right foot, she is doing well now Discussed regarding prevention of foot ulcers and importance of tight control of diabetes Assessment & Plan (06/14/2024 3:16 PM EDT): On right foot, stable. Advised to do foot check regularly. Tendinitis of left rotator cuff 04/24/2023 Assessment & Plan (01/23/2025 6:39 PM EDT): She has declined referral to PT or joint injection clinic Continue ibuprofen or meloxicam as needed, I advised her to contact our acupuncture clinic Agreed to be referred to orthopedics Will discuss with patient and daughter importance of avoiding lifting heavy weights with that arm and and that she may need assistance with ADLs Assessment & Plan (09/17/2024 9:22 AM EST): [...] ADLs, I will order an evaluation for LOSS PREVENTION AGENT Helicobacter pylori (H. pylori) 11/24/2022 Overview (07/10/2023): [...] diabetes mellitus without complication Assessment & Plan (01/23/2025 6:41 PM EDT): Controlled, A1c is at goal. Continue on Januvia 50 mg. Counseled re more frequent low calorie/carb meals. Check fgstk once daily Encouraged physical activity as tolerated. FU in 3 months. Assessment & Plan (09/17/2024 9:23 AM EST): [...] she will follow up with PCP in [facility]. Her daughter will schedule fu with me [...] Encounters Date Type Department Care Team Description 02/12/2025 Telephone [facility] [address] [place] [address] Bobo Cedeño MD May02/04/2025 1:00 PM EDT Office Visit [facility] ADULT DENTAL [address] [place] [address] Nevaeh Hauser Dental calculus (Primary Dx); Dental plaque 01/18/2025 Telephone [facility] [address] [place] [address] Bobo Cedeño MD Durable Medical Equipment 01/17/2025 10:30 AM EDT Office Visit [facility] [address] [place] [address] Bobo Cedeño MD Type 2 diabetes mellitus without complication, without long-term current use of insulin (CMS/HCC) (Primary Dx); Mononeuropathy due to type 2 diabetes mellitus (CMS/HCC); Tendinitis of left rotator cuff; Tenosynovitis of finger and hand; Rosacea 01/17/2025 Travel 01/16/2025 Telephone [facility] [address] [place] [address] Bobo Cedeño MD Chart prep 01/08/2025 1:00 PM EDT Office Visit [facility] [address] [place] [address] Anca Fernandez, OD Diabetes type 2, no ocular involvement (CMS/HCC) (Primary Dx); Pseudoexfoliation syndrome; Meibomian gland disease of both eyes, unspecified eyelid; Age-related nuclear cataract of both eyes; Presbyopia 01/08/2025 Travel 01/08/2025 Patient Outreach [facility] [address] [place] [address] Bobo Cedeño MD Pre-visit Planning ((Unable to reach for PVP screening, LVM)) 12/29/2024 Refill [facility] [address] [place] [address] [place], [place], CALL CENTER SPECIALIST 12/21/2024 Population Health Risk Score [facility] () Department [address] [place] [phone] Provider, Population Health Generic from Last 3 Months Immunizations Name Administration [...] is your housing situation today? I have sevenwilliam navarro 05/28/[address] you [...] Sign Reading Time Taken Comments Blood Pressure 138/78 02/04/2025 1:10 PM EDT Pulse 63 01/17/2025 10:25 AM EDT [...] Description 03/20/2025 2:30 PM EDT Office Visit [facility] [address] [place] [address] Tyrone Miller DDS [address] [place] [address] 06/05/2025 10:15 AM EDT Office Visit [facility] [address] [place] [address] Bobo Cedeño MD [address] [place] [address] Health Maintenance Due Date Last Done Comments CT Colonography 1964 FIT DNA/Cologuard 1964 FIT 1964 FOBT 1964 HIV Screening 1964 Sigmoidoscopy 1964 Alcohol/Substance Use Screening 1976 Pneumococcal Vaccine: 50+ Years (1 of 2 - PCV) 1983 Pap Smear 1985 Zoster Vaccines (2 of 3) 07/24/2019 05/29/2019 Mammogram 08/01/2022 08/01/2020, 10/11, 11/07/2018, Additional history exists Cervical Cancer Screening 11/23/2022 HPV/Cotest 11/23/2022 11/23/2017 Depression Screening 11/24/2023 11/24/2022, 11/24/19 COVID-19 Vaccine ( season) 2024 04/14/2021, 03/18/2021 Influenza Vaccine (#1) 2024 , 09/08/2020, 06/27/2019, Additional history exists RSV Patients and Patients Aged 60 years or older (1 - Risk 60-74 years 1-dose series) 2024 Dental Oral Exam 01/18/2025 07/19/2024 Diabetes: Foot Exam 06/14/2025 06/14/2024, 06/14/2024, 06/14/2024, Additional history exists Lipid Panel 06/14/2025 06/14/2024, 07/11, 03/18/2021, Additional history exists Diabetes: Hemoglobin A1C 07/19/2025 025, 06/14/2024, 03/09/2024, Additional history exists Dental X-Ray: Bitewings 07/20/2025 07/19/2024 Dental Prophylaxis 08/07/2025 02/04/2025, 08/03/2024 SDOH Screening 01/17/2026 01/17/2025 Tobacco Screening 02/04/2026 02/04/2025 Eye Exam 01/08/2027 01/08/2025, 04/0 10/2024, 01/08/2025, Additional history exists Dental X-Ray: Full Mouth 07/20/2027 07/19/2024 Colonoscopy 11/05/2027 11/05/2022 Colorectal Cancer Screening 11/05/2027 DTaP/Tdap/Td Vaccines (2 - Td or Tdap) 05/29/2029 05/29/2019 Hepatitis C Screening Completed 01/17/2025 HIB Vaccines Aged Out No longer eligi [...] Procedure Name Priority Date/Time Associated Diagnosis Comments CASE PRESENTATION, DETAILED AND EXTENSIVE TREATMENT PLANNING Routine 02/04/2025 1:00 PM EDT ORAL HYGIENE INSTRUCTIONS Routine 02/04/2025 1:00 PM EDT Dental calculus Dental plaque PROPHYLAXIS - ADULT Routine 02/04/2025 1 :00 PM EDT Dental calculus Dental plaque LYME IGG/IGM WEST BLOT (NON ORDERABLE) Routine 01/17/2025 11:39 AM EDT LYME DISEASE AB W/REFL TO BLOT (IGG, IGM) Routine 01/17/2025 11:39 AM EDT Tendinitis of left rotator cuff Tenosynovitis of finger and hand HEPATITIS PANEL, GENERAL Routine 01/17/2025 11:39 AM EDT Tendinitis of left rotator cuff Tenosynovitis of finger and hand CBC WITH AUTO DIFFERENTIAL Routine 01/17/2025 11:39 [...] rotator cuff Tenosynovitis of finger and hand SED RATE BY MODIFIED WESTERGREN Routine 01/17/2025 11:39 AM EDT Tendinitis of left rotator cuff Tenosynovitis of finger and hand BOBO SCREEN, IFA, W/REFL TITER AND PATTERN Routine 01/17/2025 11:39 AM EDT Tendinitis of left rotator cuff Tenosynovitis of finger and hand POCT GLYCATED HEMOGLOBIN, TOTAL Routine 01/17/2025 10:25 AM EDT Type 2 diabetes mellitus without complication, without long-term current use of insulin ([facility]/HCC) POCT GLUCOSE Routine 01/17/2025 10:25 AM EDT Type 2 diabetes mellitus without complication, without long-term current use of insulin (CMS/[facility]) INTRAORAL - COMPLETE SERIES OF RADIOGRAPHIC IMAGES [...] Relevant to Health Maintenance Results * (ABNORMAL) Lyme IgG/IgM Western Blot (01/17/2025 11:39 AM EDT) Lyme IgG Line Blot Interp. NEGATIVE NEGATIVE [facility] 18 KD (IgG) Band NON-REACTIV E [facility] 23 KD (IgG) Band NON-REACTIV E [facility] 28 KD (IgG) Band NON-REACTIV E [facility] 30 KD (IgG) Band NON-REACTIV E [facility] 39 KD (IgG) Band NON-REACTIV E [facility] 41 KD (IgG) Band NON-REACTIV E [facility] 45 KD (IgG) Band NON-REACTIV E [facility] 58 KD (IgG) Band NON-REACTIV E [facility] 66 KD (IgG) Band NON-REACTIV E [facility] 93 KD (IgG) Band NON-REACTIV E [facility] Lyme Disease Antibody (IgM), Blot NEGATIVE NEGATIVE [facility] 23 KD (IgM) Band REACTIVE(A) [facility] 39 KD (IgM) Band NON-REACTIV E [facility] 41 KD (IgM) Band NON-REACTIV E [facility] Comment:Lyme immunoblot test ing should only be performed onsamples from patients who have had a Positive orEquivocal result in a screening assay.As per CDC criteria, a Lyme disease IgG Immunoblot mustshow reactivity to at least 5 of 10 specific borrelialproteins to be considered positive; similarly, apositive Lyme disease IgM immunoblot requiresreactivity to 2 of 3 specific borrelial proteins.Although considered negative, IgG reactivity to fewerspecific borrelial proteins or IgM reactivity to only1 protein may indicate recent B. burgdorferi infectionand warrant testing of a later sample. A positive IgMbut negative IgG result obtained more than a monthafter onset of symptoms likely represents a false-positive IgM result rather than acute Lyme disease.In rare instances, Lyme disease immunoblot reactivitymay represent antibodies induced by exposure to otherspirochetes.THIS TEST WAS PERFORMED AT:[facility] [place] [phone] HOFF MD 01/17/2025 11:3 9 AM EDT 01/17/2025 1:33 PM EDT Bobo Cedeño MD HISTORICAL/NON ORDERABLE LABS Final Result [facility] [address] [place] [address] [phone] * (ABNORMAL) Lyme Disease Ab with Reflex to Blot (IgG, IgM) (01/17/2025 11:39 AM EDT) Pathologist [facility] Lyme Antibody Screen POSITIVE [facility] Lyme Blot 1.75(A) index [facility] Comment:Index Interpretation ----- < 0.90 Negative 0.90-1.09 Equivocal > 1.09 PositiveAs recommended by the Food and Drug Administration(FDA), all samples with positive or equivocalresults in a Borrelia burgdorferi antibody screenwill be tested using a blot method. Positive orequivocal screening test results should not beinterpreted as truly positive until verified as suchusing a supplemental assay (e.g., B. burgdorferi blot).The screening test and/or blot for B. burgdorferiantibodies may be falsely negative in early stagesof Lyme disease, including the period when erythemamigrans is apparent.THIS TEST WAS PERFORMED AT:[facility] [place] [phone] HOFF MD 01/17/2025 11:3 9 AM EDT 01/17/2025 1:33 PM EDT Bobo Cedeño MD LAB BLOOD ORDERABLES [facility] al Result [facility] [address] [place] [phone] [phone] * Hepatitis Panel, General (01/17/2025 11:39 AM EDT) Pathologist [facility] Hepatitis A IgM Nonreactive Nonreactive [facility] Comment:IgM antibodies to LYNCH V not detected; does not exclude earlyacute or recovered HAV infection. ~Hepatitis B Surface Antibody NONREACTIVE Nonreactive [facility] Comment:Nonreactive: < 8.00 mIU/mL Hepatitis B Core Antibody Nonreactive Nonreactive [facility] Hepatitis C Antibody Nonreactive Nonreactive [facility] Comment:Antibodies to HCV no t detected; does not exclude early acuteHCV infection. Hepatitis B Surface Ag Negative Negative [facility] Blood 01/17/2025 11:3 9 AM EDT 01/17/2025 1:33 PM EDT Bobo Cedeño MD LAB BLOOD ORDERABLES Fin al Result [facility] [address] [place] [address] [phone] * (ABNORMAL) CBC auto differential (01/17/2025 11:39 AM EDT) White Blood Count 7.5 4.8 - 10.8 X10*3/uL [facility] Red Blood Count 4.46 4.20 - 5.50 X10*6/uL [facility] Hemoglobin 12.9 12.0 - 16.0 g/dl [facility] Hematocrit 38.0 37.0 - 47.0 % [facility] Mean Corpuscular Volume 85.2 80.0 - 98.0 fL [facility] Mean Corpuscular Hemoglobin 28.9 27.0 - 33.0 pg [facility] Mean Corpuscular HGB Conc 33.9 31.0 - 35.0 g/dl [facility] Red Cell Distribution Width 12.5 11.0 - 16.0 % [facility] Platelet Count 155(L) 160 - 400 X10*3/uL [facility] Mean Platelet Volume 12.7(H) 9.4 - 12.3 fL [facility] Neutrophils Percent Auto 65.3 45 - 73 % [facility] Imm Gran Pct Auto 0.3 0.0 - 0.4 % [facility] Lymphocytes Percent Auto 25.7 20 - 40 % [facility] Monocytes Percent Auto 6.8 2 - 11 % [facility] Eosinophils Percent Auto 1.2 0 - 4 % [facility] Basophils Percent Auto 0.7 0 - 2 % [facility] NRBC Pct Auto 0.0 0.0 - 0.2 /100WBC [facility] Neutrophils Absolute Auto 4.9 2.0 - 8.3 x10*3/uL [facility] Imm Gran Abs Auto 0.02 0.00 - 0.03 X10*3/uL [facility] Lymphocytes Absolute Auto 1.9 1.2 - 4.9 X10*3/uL [facility] Monocytes Absolute Auto 0.5 0.1 - 1.2 X10*3/uL [facility] Eosinophils Absolute Auto 0.1 0.0 - 0.4 X10*3/uL [facility] Basophils Absolute Auto 0.1 0.0 - 0.2 X10*3/uL [facility] NRBC Abs Auto 0.000 0.0 - 0.012 X10*3/uL [facility] Blood Venous blood specimen / Unknown 01/17/2025 11:39 AM EDT 01/17/2025 1:33 PM EDT us Bobo Cedeño MD LAB BLOOD ORDERABLES Fin al Result Performing Organization Address City/[facility] Co de Phone Number [facility] [address] [place] [phone] * Sed Rate by Modified Westergren (01/17/2025 11:39 AM EDT) Pathologist [facility] Erythrocyte Sedimentation Rate 12 0 - 20 MM/HR [facility] Comment:Patients with polycy themia and many hemoglobin abnormalitiesmay have depressed sed rates whereas patients with anemiamay have elevated sed rates. Blood Venous blood specimen / Unknown 01/17/2025 11:39 AM EDT 01/17/2025 1:33 PM EDT Bobo Cedeño MD LAB BLOOD ORDERABLES Fin al Result Performing Organization Address [facility] Co de Phone Number [facility] [address] [place] [phone] * Rheumatoid Factor (01/17/2025 11:39 AM EDT) Pathologist [facility] Rheumatoid Factor <13.0 <15.0 IU/mL [facility] Blood Venous blood specimen / Unknown 01/17/2025 11:39 AM EDT 01/17/2025 1:33 PM EDT Bobo Cedeño MD LAB BLOOD ORDERABLES Fin al Result Performing Organization Address [facility] Co de Phone Number [facility] [address] [place] [phone] * C-reactive Protein (01/17/2025 11:39 AM EDT) C Reactive Protein <0.10 < or = 0.50 mg/dL [facility] Blood Venous blood specimen / Unknown 01/17/2025 11:39 AM EDT 01/17/2025 1:33 PM EDT Bobo Cedeño MD LAB BLOOD ORDERABLES Fin al Result Performing Organization Address [facility] de Phone Number [facility] [address] [place] [phone] * BOBO Screen,IFA, with Reflex to Titer and Pattern (01/17/2025 11:39 AM EDT) Anti Nuclear Antibody Screen NEGATIVE NEGATIVE [facility] Comment:BOBO IFA is a first l ine screen for detecting thepresence of up to approximately 150 autoantibodies invarious autoimmune diseases. A negative BOBO IFA resultsuggests an BOBO-associated autoimmune disease is notpresent at this time, but is not definitive. If thereis high clinical suspicion for Sjogren's syndrome,testing for anti-SS-A/Ro antibody should be considered.Anti-Kim-1 antibody should be considered for clinicallysuspected inflammatory myopathies.AC-0: NegativeInternational Consensus on BOBO Patterns(https://doi.org/10.1515/utlo-6130-6004)For additional information, please refer tohttp://education.[employer]/faq/VKT413(This link is being provided for informational/educational purposes only.)THIS TEST WAS PERFORMED AT:[facility] [place] [id number] HOFF MD BOBO Titer TNP [facility] BOBO Pattern TNP [facility] BOBO TITER 2 (REF LAB) TNP [facility] BOBO Pattern 2 TNP [facility] 3 [facility] Blood Venous blood specimen / Unknown 01/17/2025 11:39 AM EDT 01/17/2025 1:33 PM EDT Bobo Cedeño MD LAB BLOOD ORDERABLES Fin al Result Performing Organization Address [facility] Co de Phone Number [facility] [address] [place] [phone] * Uric acid (01/17/2025 11:39 AM EDT) Uric Acid 3.9 2.4 - 5.7 mg/dL [facility] Blood Venous blood specimen / Unknown 01/17/2025 11:39 AM EDT 01/17/2025 1:33 PM EDT Bobo Cedeño MD LAB BLOOD ORDERABLES Fin al Result Performing Organization Address [facility] Co de Phone Number [facility] [address] [place] [phone] * (ABNORMAL) POCT HGB A1C (01/17/2025 10:25 AM EDT) Hemoglobin A1C 6.6(A) 4.0 - 6.0 % QC Media Lot # [id number] Lot# Expiration Date Blood 01/17/2025 10:2 5 AM EDT Bobo Cedeño MD POINT OF CARE TEST ENTER /EDIT ORDERABLES Final Result * POCT Glucose (01/17/2025 10:25 AM EDT) Glucose Blood, POC 175 60 - 200 mg/dL [employer] Lot # [id number] Lot# Expiration Date Blood Capillary blood specimen / Unknown 01/17/2025 10:25 AM EDT Bobo Cedeño MD POINT OF CARE TEST ENTER /EDIT ORDERABLES Final Result * Lipid Panel with Reflex to Direct LDL (06/14/2024 1:37 PM EDT) Triglycerides 106 <150 mg/dL [facility] Comment:Desirable Triglyceri de: less than 150 mg/dLBorderline High Triglyceride 150-199 mg/dLHigh Triglyceride: 200-499 mg/dLVery High Triglyceride: greater than or equal to 5OO mg/dL Cholesterol 137 <200 mg/dL [facility] Comment:Desirable Cholestero l: less than 200 mg/dLBorderline High Cholesterol: 200-239 mg/dLHigh Cholesterol: greater than 239 mg/dL LDL Cholesterol Calculated 75 <100 mg/dL [facility] Comment:Desirable LDL: less than 100 mg/dLNear Optimal/Above Optimal LDL: 110- 129 mg/dLBorderline High LDL: 130-159 mg/dLHigh LDL: 160-189 mg/dLVery High LDL: greater than or equal to 190 mg/dL HDL Cholesterol 41 >40 mg/dL [facility] Comment:Desirable HDL: great er than 40 mg/dL Note: This HDL assay may give artificially low results in patients with liver disease. Blood 06/14/2024 1:37 PM EDT 06/14/2024 4:32 PM EDT Bobo Cedeño MD LAB BLOOD ORDERABLES Fin al Result [facility] [address] [place] [phone] * (ABNORMAL) Hm Colonoscopy (11/05/2022) Colonoscopy Abnormal( A) Normal [facility] Comment:adenomatous polyps a nd Diverticulosis 11/05/2022 Bobo Cedeño MD HEALTH MAINTENANCE Final Result [facility] [address] [place] [phone] * Mammography Report 1 (08/01/2020 12:16 PM EDT) Anatomical Region Laterality Modality Breast Bilateral Mammography 08/01/2020 12:1 6 PM EDT Narrative 03/24/2021 10:12 AM EDT Refer to the Notes tab for result details [facility] Procedure: Mammography Report 1 Procedure Note ProviderRavinder MD - 01/01/2023 Refer to the Notes tab for result details [facility] Procedure: Mammography Report 1 us Bobo Cedeño MD IMG BI PROCEDURES Final Result * HPV mRNA E6/E7 (11/23/2017 10:06 AM EST) HPV mRNA E6/E7 Not Detected NOT DETECTED [facility] Comment: This test was performed using the APTIMA(R) HPV Assay ([employer] This assay detects E6/E7 viral messenger RNA (mRNA) from 14 high-risk HPV types (16,18,31,33,35,39,45,51, 52,56,58,59,66,68). For additional information please refer to: http://education.[employer]/faq/CRF734i4 (This link is being provided for informational/ educational purposes only.) Test Performed by [employer], [employer] [facility], [address] [place] [address] Narciso Diallo M.D., Ph.D., Director of Laboratories , [place] [id number] Please note: ??Effective 06/21/2016, HPV testing will be performed using [employer] APTIMA test which targets mRNA. Detecting mRNA instead of DNA, as in older methods, offers significant improvements in specificity. 11/23/2017 10:0 6 AM EST us Farhana Buenrostro CNM HISTORICAL/NON ORDERABLE LABS Final Result [facility] [facility] [address] from Last 3 Months or Most Recently Relevant to Health Maintenance Insurance [employer] [id number] [place] [address] [facility] STAND ADULT Care Teams Security Messenger Relationship Specialty Start Date End Date Bobo Cedeño MD [address] [place] [address] PCP - General Family Medicine 09/27/17
--- OUTSIDE RECORDS SUMMARY | 2025-02-13 13:31 | XMS_ITS | Encounter Summary ---
Author Organization [employer] Address [address] [facility] [address] 7t [place] [address] Care Team Providers Care Hog Room Supervisor Name Role Phone Twyla Cedeño MD Primary Care Provider + Encounter Details Date Type Department Care Team (Latest Contact Info) Description 11/03/2018 Abstract [facility] CONVERSIONS Dental, Provider, DDS Social History [...] Description 03/20/2025 2:30 PM EDT Office Visit [facility] ADULT DENTAL [address] [place] [address] Tyrone Miller DDS [address] [place] [address] 06/05/2025 10:15 AM EDT Office Visit [facility] MEDICINE [address] [place] [address] Twyla Cedeño MD 230 [place] [address] documented as of this encounter Visit Diagnoses Not on filedocumented in this encounter Care Teams Hog Room Supervisor Relationship Specialty Start Date End Date Twyla Cedeño MD [address] [place] [address] PCP - General Family Medicine 09/27/17 documented as of this encounter
--- OUTSIDE RECORDS SUMMARY | 2025-02-13 13:31 | XMS_ITS | Encounter Summary ---
Author Organization [employer] Address [address] [facility] [address] 7t [place] [address] Care Team Providers Care Shoe Fitter Name Role Phone Twyla Cedeño MD Primary Care Provider + Encounter Details Date Type Department Care Team (Latest Contact Info) Description 03/26/2021 Abstract [facility] CONVERSIONS Dental, Provider, DDS Social History Tobacco [...] Description 03/20/2025 2:30 PM EDT Office Visit [facility] ADULT DENTAL 230 [place] [address] Tyrone Miller DDS 230 [place] [address] 06/05/2025 10:15 AM EDT Office Visit [facility] MEDICINE [address] [place] [address] Twyla Cedeño MD 230 [place] [address] documented as of this encounter Visit Diagnoses Not on filedocumented in this encounter Care Teams Shoe Fitter Relationship Specialty Start Date End Date Twyla Cedeño MD [address] [place] [address] PCP - General Family Medicine 09/27/17 documented as of this encounter
--- OUTSIDE RECORDS SUMMARY | 2025-02-13 13:31 | XMS_ITS | Encounter Summary ---
Author Organization [employer] Address [address] [facility] [address] 7t [place] [address] Care Team Providers Care Senior Investment Analyst Name Role Phone Twyla Cedeño MD Primary Care Provider + Reason for Visit * Reason Comments Med Refill Encounter Details Date Type Department Care Team ([facility] st Contact Info) Description 07/27/2024 Refill [facility] DIABETES/NUTRITION 230 [place], [place] [phone] Twyla Cedeño MD 230 [place] [address] Tinea corporis Social History Tobacco Use Types [...] Description 03/20/2025 2:30 PM EDT Office Visit [facility] ADULT DENTAL 230 [place] [address] Tyrone Miller DDS 230 [place] [address] 06/05/2025 10:15 AM EDT Office Visit [facility] MEDICINE 230 [place] [address] Twyla Cedeño MD [address] [place] [address] documented as of this encounter Visit Diagnoses Diagnosis Tinea corporis Dermatophytosis of the body documented in this encounter Care Teams Senior Investment Analyst Relationship Specialty Start Date End Date Twyla Cedeño MD [address] [place] [address] PCP - General Family Medicine 09/27/17 documented as of this encounter
--- OUTSIDE RECORDS SUMMARY | 2025-02-13 13:31 | XMS_ITS | Encounter Summary ---
Author Organization [employer] Address [address] [facility] [address] 7t [place] [address] Care Team Providers Care Child And Adolescent Psychologist Name Role Phone Twyla Cedeño MD Primary Care Provider + Reason for Visit * Reason Comments Med Refill Encounter Details Date Type Department Care Team (Late st Contact Info) Description 04/30/2024 Refill [facility] MED & PEDS [address] [place], [place] [phone] Janny Wheatley MD 230 [place] [address] Social History Tobacco Use Types Packs/Day Years [...] Description 03/20/2025 2:30 PM EDT Office Visit [facility] ADULT DENTAL 230 [place] [address] Tyrone Miller DDS 230 [place] [address] 06/05/2025 10:15 AM EDT Office Visit [facility] MEDICINE [address] [place] [address] Twyla Cedeño MD 230 [place] [address] documented as of this encounter Visit Diagnoses Not on filedocumented in this encounter Care Teams Child And Adolescent Psychologist Relationship Specialty Start Date End Date Twyla Cedeño MD [address] [place] [phone] PCP - General Family Medicine 09/27/17 documented as of this encounter
--- OUTSIDE RECORDS SUMMARY | 2025-02-13 13:31 | XMS_ITS | Encounter Summary ---
Author Organization [employer] Address [address] [facility] [address] 7t [place] [address] Care Team Providers Care Medical Claims Assistant Name Role Phone Twyla Cedeño MD Primary Care Provider + Reason for Visit * Reason Comments Med Refill Encounter Details Date Type Department Care Team ([facility] st Contact Info) Description 04/09/2024 Refill [facility] MEDICINE 230 [place], [place] [phone] Twyla Cedeño MD 230 [place], [place] [phone] Type 2 diabetes mellitus without complication, without long-term current use of insulin ([facility]) Social History Tobacco Use Types Packs/Day Years [...] Description 03/20/2025 2:30 PM EDT Office Visit [facility] ADULT DENTAL [address] [place] [address] Tyrone Miller DDS 230 [place] [address] 06/05/2025 10:15 AM EDT Office Visit [facility] MEDICINE 230 [place] [address] Twyla Cedeño MD [address] [place] [address] documented as of this encounter Visit Diagnoses Diagnosis Type 2 diabetes mellitus without complication, without long-term current use of insulin ([facility]) documented in this encounter Care Teams Medical Claims Assistant Relationship Specialty Start Date End Date Twyla Cedeño MD [address] [place] [address] PCP - General Family Medicine 09/27/17 documented as of this encounter
--- OUTSIDE RECORDS SUMMARY | 2025-02-13 13:31 | XMS_ITS | Encounter Summary ---
Author Organization [employer] Address [address] [facility] [address] 7t [place] [address] Care Team Providers Care Cloth Spreader Screen Printing Name Role Phone Twyla Cedeño MD Primary Care Provider + Encounter Details Date Type Department Care Team (Latest Contact Info) Description 06/02/2022 Abstract [facility] CONVERSIONS Dental, Provider, DDS Social History [...] Description 03/20/2025 2:30 PM EDT Office Visit [facility] ADULT DENTAL 230 [place] [address] Tyrone Miller DDS [address] [place] [address] 06/05/2025 10:15 AM EDT Office Visit [facility] MEDICINE 230 [place] [address] Twyla Cedeño MD 230 [place] [address] documented as of this encounter Visit Diagnoses Not on filedocumented in this encounter Care Teams Cloth Spreader Screen Printing Relationship Specialty Start Date End Date Twyla Cedeño MD [address] [place] [address] PCP - General Family Medicine 09/27/17 documented as of this encounter
--- OUTSIDE RECORDS SUMMARY | 2025-02-13 13:31 | XMS_ITS | Encounter Summary ---
Author Organization [employer] Address [address] [facility] [place] [facility] [address] 7t [place] [address] Care Team Providers Care Lathe Set Up Person Name Role Phone Twyla Cedeño MD Primary Care Provider + Reason for Visit * Reason Comments Med Refill Encounter Details Date Type Department Care Team (Late st Contact Info) Description 06/23/[address] [facility] MED & PEDS [address] [place] [address] Carmel Dang MD 230 [place] [address] [place] Social History Tobacco Use Types Packs/Day Years [...] Description 03/20/2025 2:30 PM EDT Office Visit [facility] ADULT DENTAL 230 [place], [place] [phone] Tyrone Miller DDS 230 [place], [place] [phone] 06/05/2025 10:15 AM EDT Office Visit [facility] MEDICINE 230 [place], [place] [phone] Twyla Cedeño MD [address] [place] [address] [phone] documented as of this encounter Visit Diagnoses Diagnosis Rosacea documented in this encounter Care Teams Lathe Set Up Person Relationship Specialty Start Date End Date Twyla Cedeño MD [address] [place] [address] PCP - General Family Medicine 09/27/17 documented as of this encounter
== END ==
LOC: HO.HCS 12:18
PROVIDERS: PCP Internal Medicine; Visit Provider Internal Medicine Cardiovascular Disease
DX: I10 Essential (primary) hypertension (principal); E78.5 Hyperlipidemia, unspecified
CPT/HCPCS: 93010; 99213

== ENCOUNTER → 2025-02-13 12:18 | Outpatient (BNVA) | payer MEDICAID, SELFPAY | PROVIDERS: PCP Internal Medicine; Visit Provider Internal Medicine Cardiovascular Disease | DX: I10 Essential (primary) hypertension (principal); E78.5 Hyperlipidemia, unspecified | CPT/HCPCS: 93005; 99212 ==

== ENCOUNTER 2025-06-21 13:31 | Outpatient (REF) | payer MEDICAID, SELFPAY ==
--- NOTE | ~2025-06-21 | XR_ITS ---
EXAMINATION: XR LUMBOSACRAL SPINE WITH OBLIQUES CLINICAL INFORMATION: severe LBP radiating down r leg COMPARISON: None available. TECHNIQUE: AP oblique and lateral views FINDINGS: Multilevel endplate sclerosis marginal osteophyte formation and decreased intervertebral disc height. S-shaped curvature of the lumbar spine which could be positional. Grade 1 anterolisthesis L5-S1. No acute cortical disruption. Sclerosis and sacroiliac joints. Spina bifida occulta S1, congenital.. XR/XR lumbar spine 4V min IMPRESSION: Mild scoliosis. Multilevel thoracolumbar spondylosis. Grade 1 anterolisthesis L5-S1. Electronically signed by: Joel Perez MD 06/21/2025 02:27 PM EDT
--- OUTSIDE RECORDS SUMMARY | 2025-06-21 16:17 | XMS_ITS | Clinical Summary ---
Author Organization [facility] Address [address] [place] [phone] Phone Care Team Providers Care Patient Ombudsperson Name Role Phone Twyla Cedeño MD Primary Care Provider + Allergies No known active allergies Medications No known medications Social History Tobacco Use Types Packs/Day Years Used Date Smoking Tobacco: Never Assessed Education Answer Date Recorded Are you interested in more education? Not on nicole e 02/05/2023 Are you concerned about learning? Not on file 02/05/2023 No 02/05/2023 No 02/05/2023 Digital Access Answer Date Recorded No 03/08/2023 No 03/08/2023 Reliable internet access at home? Not on file 03/08/2023 Device with a working camera? Not on file Comments Unknown Sex and Gender Information Value Date Recorded Sex Assigned at Not on file Legal Sex Female 12:45 PM EDT Gender Identity Not on file Sexual Orientation Not on file Last Filed Vital Signs Vital Sign Reading Time Taken Comments Blood Pressure 118/65 04/26/2022 4:29 PM EDT Pulse 60 04/26/2022 4:29 PM EDT Temperature 36.7 C (98.1 F) 04/26/2022 12:58 PM EDT Respiratory Rate 19 04/26/2022 4:29 PM EDT Oxygen Saturation 100% 04/26/2022 4:29 PM EDT Inhaled Oxygen Concentration - - Weight 71.1 kg (156 lb 11.2 oz) 022 12:56 PM EDT Height 160 cm (5' 3 ) 04/26/2022 12:56 PM EDT Body Mass Index 27.76 04/26/2022 12:56 PM EDT Plan of Treatment Health Maintenance Due Date Last Done Comments DEPRESSION SCREENING 1976 SMOKING Hx and SMOKELESS TOBACCO SCREENING 1977 HEPATITIS C SCREENING 1982 HIV ONE-TIME SCREENING (18-6 5 YEARS) 1982 PAP SMEAR 1985 COLOGUARD 2009 COLONOSCOPY 2009 COLORECTAL CANCER SCREENING 2009 FIT TEST 2009 FOBT 2009 SIGMOIDOSCOPY 2009 VIRTUAL COLONOSCOPY 2009 PNEUMOCOCCAL VACCINES (50+ years) (1 of 1 - PCV) 2014 ZOSTER VACCINES (1 of 2) 2014 MAMMOGRAM 08/01/2022 08/01/2020, 11/07/2018 INFLUENZA VACCINE (#1) 2025 COVID-19 VACCINE ( - 2023-2 5 season) 2025 LIPID PANEL 08/05/2027 08/05/2022 Adult Td,Tdap Booster 05/29/2029 05/29/2019 RSV VACCINE (1 - 1-dose 75+ series) 2039 HEPATITIS A VACCINES Aged Out No long er eligible based on patient's age to complete this topic HIB VACCINES Aged Out No longer eligi ble based on patient's age to complete this topic MENINGOCOCCAL VACCINES (ACWY) Aged Out No longer eligible based on patient's age to complete this topic MENINGOCOCCAL VACCINES (B) Aged Out N o longer eligible based on patient's age to complete this topic Medical Devices Not on file Insurance [facility] CO[facility] C3 ACO C3 ACO C3 ACO C3 ACO C3 ACO C3 ACO C3 ACO Care Teams Patient Ombudsperson Relationship Specialty Start Date End Date Twyla Cedeño MD [address] [place] [address] [address] [place] [phone] PCP - General Internal Medicine 04/26/22 Additional Source Comments The information contained in this document represents components of the legal health record. It is not the complete legal health record.[facility]
== END 2025-06-21 13:32 | disposition home or self-care (01) ==
LOC: HO.HHCX 13:31
PROVIDERS: PCP Internal Medicine; Visit Provider Family Medicine
DX: M54.41 Lumbago with sciatica, right side (principal)
CPT/HCPCS: 72110

== ENCOUNTER → 2025-06-21 13:37 | Outpatient (BNV) | payer MEDICAID, SELFPAY | PROVIDERS: PCP Internal Medicine; Visit Provider Radiology Diagnostic Radiology | DX: M43.16 Spondylolisthesis, lumbar region (principal) | CPT/HCPCS: 72110 ==

== ENCOUNTER → 2025-07-09 15:21 | Outpatient (BNV) | payer MEDICAID, SELFPAY | PROVIDERS: PCP Internal Medicine; Visit Provider Radiology Diagnostic Radiology | DX: M54.41 Lumbago with sciatica, right side (principal); M43.17 Spondylolisthesis, lumbosacral region | CPT/HCPCS: 72148 ==

== ENCOUNTER 2025-07-09 15:22 | Outpatient (REF) | payer MEDICAID, SELFPAY ==
--- NOTE | ~2025-07-09 | MR_ITS ---
EXAM: MRI Lumbar Spine without Contrast. TECHNIQUE: Multiplanar multisequence MRI of the lumbar spine with performed without contrast. INDICATION: LBP with severe pain radiating down R leg PRIOR: X-ray 06/21/2025 FINDINGS: 5 non-rib bearing lumbar segments on x-ray. Marrow and end-plates: There are no marrow replacing lesions. Alignment: There is mild convex right curvature of the lumbar spine. Soft tissues: Paraspinal soft tissues and major vascular structures are unremarkable. Conus: The termination of conus medullaris is within normal limits at the level of L1-L2. T12-L1: There is no disc bulge, herniation, spinal stenosis, or foraminal narrowing. There is minimal facet arthropathy. L1-L2: There is no disc bulge, herniation, spinal stenosis, or foraminal narrowing. L2-L3: There is disc desiccation with circumferential broad-based disc bulge. There is ligamentum flavum thickening. There is minimal spinal stenosis Without foraminal narrowing. L3-L4: Circumferential broad-based disc bulge and mild ligamentum flavum thickening results in mild spinal stenosis. There is minimal subarticular zone narrowing and mild left foraminal narrowing. There is no right-sided foraminal narrowing. L4-L5: There is circumferential broad-based disc bulge with small central protrusion indents thecal sac. There is ligament flavum thickening and mild facet arthropathy. There is no spinal stenosis. There is mild subarticular zone narrowing. There is mild left greater than right foraminal narrowing. L5-S1: There is grade 1 anterolisthesis. 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 There is moderate facet arthropathy. There is no spinal stenosis. There is no subarticular zone narrowing. There is severe right and moderate left foraminal narrowing with likely encroachment of the right L5 nerve root. MR/MR lumbar spine wo con IMPRESSION: L2-L3: There is minimal spinal stenosis. L3-L4: There is mild spinal stenosis and minimal subarticular zone narrowing. L5-S1: There is grade 1 anterolisthesis related to chronic bilateral pars interarticular is defects contributing to severe right and moderate left foraminal narrowing with likely encroachment of the right L5 nerve root. Electronically signed by: Ross Reich MD 07/09/2025 04:11 PM EDT
--- OUTSIDE RECORDS SUMMARY | 2025-07-09 16:44 | XMS_ITS | Encounter Summary ---
Author Organization [employer] Address [address] [facility] 7t [place] [address] Care Team Providers Care Clinical Business Analyst Name Role Phone Twyla Cedeño MD Primary Care Provider + Reason for Visit * Reason Onset Date Comments dental emergency insurance inactive 04/16/2025 portal discrepancy 04/16/2025 Encounter Details Date Type Department Care Team (Late st Contact Info) Description 04/16/2025 Telephone [facility] ADULT DENTAL 230 [place], [place] [phone] Tyrone Miller, DDS 230 [place], [place] [phone] dental emergency insurance inactive ; portal discrepancy Social History Tobacco Use Types Packs/Day Years [...] encounter Miscellaneous Notes * Telephone Encounter - Divine Kolb - 04/16/2025 10:17 AM EDT Spoke with [facility] administrative assistant front desk and they will send email for portal discrepancy to . Posted MMIS for appt. Patient is however still coming in to see insurance enrollment for assistance * Telephone Encounter - Divine Kolb - 04/16/2025 10:10 AM EDT Patient insurance is inactive. Jasmin informed she can come in prior to appt 1hr before hand tospeak to insurance enrollment on 2nd or 3rd floor for assistance with SFS and/or insurance. documented in this encounter Plan of Treatment Upcoming Encounters Date Type Department Care Team (Late st Contact Info) Description 07/12/2025 12:00 PM EDT Office Visit [facility] MEDICINE [address] [place] [address] Twyla Cedeño MD [address] [place] [phone] 08/23/2025 9:30 AM EST Office Visit [facility] MEDICINE [address] [place] [address] Pradeep Scott MD 230 [place] [address] documented as of this encounter Visit Diagnoses Not on filedocumented in this encounter Care Teams Clinical Business Analyst Relationship Specialty Start Date End Date Twyla Cedeño MD 230 [place] [address] PCP - General Family Medicine 09/27/17 documented as of this encounter
--- OUTSIDE RECORDS SUMMARY | 2025-07-09 16:44 | XMS_ITS | Encounter Summary ---
Author Organization [employer] Address [address] [facility] 7t [place] [address] Care Team Providers Care Behaviour Support Teacher Name Role Phone Twyla Cedeño MD Primary Care Provider + Encounter Details Date Type Department Care Team (Latest Contact Info) Description 03/26/2021 Abstract [facility] CONVERSIONS Dental, Provider, DDS Social History Tobacco [...] Description 07/12/2025 12:00 PM EDT Office Visit [facility] MEDICINE [address] [place] [phone] Twyla Cedeño MD [address] [place] [address] 08/23/2025 9:30 AM EST Office Visit [facility] MEDICINE [address] [place] [address] Pradeep Scott MD [address] [place] [address] documented as of this encounter Visit Diagnoses Not on filedocumented in this encounter Care Teams Behaviour Support Teacher Relationship Specialty Start Date End Date Twyla Cedeño MD 230 [place] [address] PCP - General Family Medicine 09/27/17 documented as of this encounter
--- OUTSIDE RECORDS SUMMARY | 2025-07-09 16:44 | XMS_ITS | Encounter Summary ---
Author Organization [employer] Address [address] [facility] 7t [place] [address] Care Team Providers Care Director Of Agriculture Name Role Phone Twyla Cedeño MD Primary Care Provider + Encounter Details Date Type Department Care Team (Latest Contact Info) Description 06/02/2022 Abstract [facility] CONVERSIONS Dental, Provider, DDS Social History Tobacco [...] Description 07/12/2025 12:00 PM EDT Office Visit [facility] MEDICINE [address] [place] [address] Twyla Cedeño MD [address] [place] [address] 08/23/2025 9:30 AM EST Office Visit [facility] MEDICINE [address] [place] [address] Pradeep Scott MD [address] [place] [address] documented as of this encounter Visit Diagnoses Not on filedocumented in this encounter Care Teams Director Of Agriculture Relationship Specialty Start Date End Date Twyla Cedeño MD 230 [place] [address] PCP - General Family Medicine 09/27/17 documented as of this encounter
--- OUTSIDE RECORDS SUMMARY | 2025-07-09 16:44 | XMS_ITS | Encounter Summary ---
Author Organization [employer] Address [address] [facility] 7t [place] [address] Care Team Providers Care Production Manager Name Role Phone Twyla Cedeño MD Primary Care Provider + Reason for Visit * Reason Comments Med Refill Encounter Details Date Type Department Care Team (Late st Contact Info) Description 06/10/2025 Refill [facility] MEDICINE 230 [place], [place] [phone] Twyla Cedeño MD 230 [place], [place] [phone] Chronic left shoulder pain Social History Tobacco Use Types Packs/Day Years Used Date Smoking Tobacco: Never Smokeless Tobacco: Never Alcohol Use Standard Drinks/Week Comments Never 0 (1 standard drink = 0.6 oz pur e alcohol) Housing Stability Answer Date Recorded What is your housing situation today? I have seven sing 05/28/[address] you li [...] Description 07/12/2025 12:00 PM EDT Office Visit [facility] MEDICINE [address] [place] [address] Twyla Cedeño MD [address] [place] [phone] 08/23/2025 9:30 AM EST Office Visit [address] [address] Pradeep Scott MD [address] [place] [address] documented as of this encounter Visit Diagnoses Diagnosis Chronic left shoulder pain Pain in joint, shoulder region documented in this encounter Care Teams Production Manager Relationship Specialty Start Date End Date Twyla Cedeño MD [address] [place] [phone] PCP - General Family Medicine 09/27/17 documented as of this encounter
--- OUTSIDE RECORDS SUMMARY | 2025-07-09 16:44 | XMS_ITS | Encounter Summary ---
Author Organization [employer] Address [address] [facility] [address] 7t [place] [address] Care Team Providers Care Fringing Machine Operator Name Role Phone Twyla Cedeño MD Primary Care Provider + Encounter Details Date Type Department Care Team (Late st Contact Info) Description 07/05/2025 Results Follow-Up [facility] MEDICINE 230 [place], [place] [phone] Twyla Cedeño MD 230 [place] [address] XR Lumbar Spine Complete 4+ Views Social History Tobacco Use Types Packs/Day Years [...] t he electric, gas, oil or water [employer] threatened to shut off services in your [...] as of this encounter Miscellaneous Notes * Result Encounter Note - Twyla Cedeño MD - 07/05/2025 2:24 PM EDT X-ray of L-spine on 06/21/2025 show significant DJD/DDD of the spine, patient is scheduled for MRI of L-spine on 07/11/2025, she was seen by Dr. Em and patient should will continue POC documented in this encounter Plan of Treatment Upcoming Encounters Date Type Department Care Team (Late st Contact Info) Description 07/12/2025 12:00 PM EDT Office Visit [facility] MEDICINE [address] [place] [phone] Twyla Cedeño MD [address] [place] [address] 08/23/2025 9:30 AM EST Office Visit [facility] MEDICINE [address] [place] [address] Pradeep Scott MD [address] [place] [address] documented as of this encounter Visit Diagnoses Not on filedocumented in this encounter Care Teams Fringing Machine Operator Relationship Specialty Start Date End Date Twyla Cedeño MD [address] [place] [address] PCP - General Family Medicine 09/27/17 documented as of this encounter
--- OUTSIDE RECORDS SUMMARY | 2025-07-09 16:44 | XMS_ITS | Encounter Summary ---
Author Organization [employer] Address [address] [facility] 7t [place] [address] Care Team Providers Care Grinder Name Role Phone Twyla Cedeño MD Primary Care Provider + Reason for Visit * Reason Comments Med Refill Encounter Details Date Type Department Care Team ([facility] st Contact Info) Description 07/27/2024 Refill [facility] DIABETES/NUTRITION 230 [place], [place] [phone] Twyla Cedeño MD 230 [place] [address] Tinea corporis Social History Tobacco Use Types [...] Description 07/12/2025 12:00 PM EDT Office Visit [facility] MEDICINE [address] [place] [phone] wTyla Cedeño MD [address] [place] [address] 08/23/2025 9:30 AM EST Office Visit [address] [address] Pradeep Scott MD [address] [place] [address] documented as of this encounter Visit Diagnoses Diagnosis Tinea corporis Dermatophytosis of the body documented in this encounter Care Teams Grinder Relationship Specialty Start Date End Date Twyla Cedeño MD [address] [place] [address] PCP - General Family Medicine 09/27/17 documented as of this encounter
--- OUTSIDE RECORDS SUMMARY | 2025-07-09 16:44 | XMS_ITS | Encounter Summary ---
Author Organization [employer] Address [address] [facility] 7t [place] [address] Care Team Providers Care Outpatient Surgery Rn Name Role Phone Twyla Cedeño MD Primary Care Provider + Reason for Visit * Reason Comments Med Refill Encounter Details Date Type Department Care Team (Late st Contact Info) Description 04/09/2024 Refill [facility] MEDICINE 230 [place], [place] [phone] Twyla Cedeño MD 230 [place], [place] [phone] Type 2 diabetes mellitus without complication, without long-term current use of insulin ([facility]) Social History Tobacco Use Types Packs/Day Years [...] Description 07/12/2025 12:00 PM EDT Office Visit [facility] MEDICINE [address] [place] [address] Twyla Cedeño MD [address] [place] [address] 08/23/2025 9:30 AM EST Office Visit [facility] MEDICINE [address] [place] [address] Pradeep Scott MD [address] [place] [phone] documented as of this encounter Visit Diagnoses Diagnosis Type 2 diabetes mellitus without complication, without long-term current use of insulin (HCC) documented in this encounter Care Teams Outpatient Surgery Rn Relationship Specialty Start Date End Date Twyla Cedeño MD [address] [place] [address] PCP - General Family Medicine 09/27/17 documented as of this encounter
--- OUTSIDE RECORDS SUMMARY | 2025-07-09 16:44 | XMS_ITS | Encounter Summary ---
Author Organization [employer] Address [address] [place] [address] [address] [place] [address] Care Team Providers Care Neurology Tech Name Role Phone Twyla Cedeño MD Primary Care Provider + Reason for Visit * Reason Comments Med Refill Encounter Details Date Type Department Care Team (Late st Contact Info) Description 06/23/2023 Refill [facility] [address] [place], [place] [phone] Carmel Dang MD [address] [place] [address] [phone] Rosacea Social History Tobacco Use Types Packs/Day [...] Encounters Date Type Department Care Team (Late Contact Info) Description 07/12/2025 12:00 PM EDT Office Visit [facility] [address] [place], [place] [phone] Twyla Cedeño MD [address] [place], [place] [phone] 08/23/2025 9:30 AM EST Office Visit [facility] [address] [place] [phone] Pradeep Scott MD [address] [place] [phone] documented as of this encounter Visit Diagnoses Diagnosis Rosacea documented in this encounter Care Teams Neurology Tech Relationship Specialty Start Date End Date Twyla Cedeño MD [address] [place] [address] [phone] PCP - General Family Medicine 09/27/17 documented as of this encounter
--- OUTSIDE RECORDS SUMMARY | 2025-07-09 16:44 | XMS_ITS | Clinical Summary ---
Author Organization [employer] Address [address] [facility] [address] [place] [address] Care Team Providers Care Crisis Intervention Specialist Name Role Phone Twyla Cedeño MD Primary Care Provider + Allergies Active Allergy Reactions Criticality Noted Date Comments [place] Oil 06/14/2024 Citrullus Vulgaris 02/04/2025 Medications Blood Pressure Monitoring (Omron 3 Series BP Monitor) device USE TO CHECK BLOOD PRESSURE EVERY DAY 09/06/20 22 Active Sodium Fluoride (PreviDent) 1.1 % gel Use at bed time every night spit do not rinse for 30 min. 05/14/20 19 Active zoster vaccine, live, (Zostavax) 06820 UNT/0.65ML injection inject 0.65 milliliter by subcutaneous route once 05/29/20 19 Active Continuous Glucose Sensor (FreeStyle Sony 2 Sensor) [facility] Apply 1 sensor every 14 days 2 each 06/14/20 24 Active glucose blood (FREESTYLE LITE) test stripIndication s:Type 2 diabetes mellitus without complication, without long-term current use of insulin ([facility]) TEST BLOOD SUGAR THREE TIMES DAILY 100 strip 1 07/27/20 24 Active TRUEplus Lancets 33G miscIndications :Type 2 diabetes mellitus without complication, without long-term current use of insulin ([facility]) TEST BLOOD SUGAR THREE TIMES DAILY 100 each 11 08/28/20 24 Active Menthol, Topical Analgesic, (Icy Hot) 5 % patch Use on affected area 14 patch 09/14/20 24 Active famotidine (Pepcid) 40 MG tabletIndicatio ns:Gastroesopha geal reflux disease with esophagitis without hemorrhage TAKE 1 TABLET BY MOUTH AT BEDTIME NEEDED 90 tablet 1 03/07/20 25 Active glucose blood (FreeStyle Precision Georgi Test) test stripIndication s:Type 2 diabetes mellitus without complication, without long-term current use of insulin ([facility]) USE DIRECTED TO TEST BLOOD SUGAR THREE TIMES DAILY 100 strip 04/02/20 Active FT Antacid Extra Strength 750 MG chewable tablet CHEW 1 TABLET BY MOUTH TWICE DAILY 180 tablet 04/03/20 25 Active atorvastatin (Lipitor) 20 MG tabletIndicatio ns:Type 2 diabetes mellitus without complication, without long-term current use of insulin ([facility]CC) TAKE 1 TABLET BY MOUTH AT BEDTIME 90 tablet 1 04/03/20 25 Active lisinopril 5 MG tabletIndicatio ns:Essential hypertension TAKE 1 TABLET BY MOUTH EVERY MORNING 90 tablet 1 05/01/20 25 Active loratadine (Claritin) 10 MG tablet TAKE 1 TABLET BY MOUTH EVERY DAY 90 tablet 05/01/20 25 Active metoprolol succinate XL (Toprol-XL) 25 MG 24 hr tabletIndicatio ns:Essential hypertension TAKE 1 TABLET BY MOUTH EVERY MORNING 90 tablet 1 05/01/20 25 Active Januvia 50 MG tablet TAKE 1 TABLET BY MOUTH EVERY MORNING 30 tablet 3 05/02/20 25 Active Continuous Glucose Claim Clinician (FreeStyle Sony 2 Mcbrides) device Scan sensor every 8 hours 1 each 05/08/20 25 Active gabapentin (Neurontin) 600 MG tablet Take 0.5 tablets (300 mg) by mouth 3 times daily. 45 tablet 3 06/21/20 25 2025 Active naproxen (Naprosyn) 500 MG tablet Take 1 tablet (500 mg) by mouth if needed in the morning and at bedtime for mild pain. 20 tablet 1 06/21/20 25 2025 Active Diclofenac Sodium 1 % gel Apply 2 g topically if needed in the morning, at noon, in the evening, and at bedtime (pain). 150 g 06/21/20 Active baclofen (Lioresal) 10 MG tablet Take 1 tablet (10 mg) by mouth if needed in the morning, at noon, and at bedtime for muscle spasms. 60 tablet 1 06/21/20 25 2024 Active acetaminophen (Tylenol 8 Hour) 650 MG ER tablet Take 1 tablet (650 mg) by mouth every 8 (eight) hours if needed for mild pain. Do not crush, chew, or split. 60 tablet 1 06/21/20 25 Active meloxicam (Mobic) 15 MG tablet Take 1 tablet (15 mg) by mouth Once per day. 30 tablet 09/14/20 24 2024 Discontinued Diclofenac Sodium 1 % gelIndications: Chronic left shoulder pain APPLY 4 GRAMS TOPICALLY TO AFFECTED AREA(S) FOUR TIMES DAILY 100 g 3 03/20/20 25 2024 Discontinued acetaminophen (Tylenol 8 Hour) 650 MG ER tablet Take 1 tablet (650 mg) by mouth every 8 (eight) hours if needed for mild pain. Do not crush, chew, or split. 30 tablet 04/16/20 25 2024 Discontinued methylPREDNISol one (Medrol Dospak) 4 MG tablets Follow schedule on package instructions 21 tablet 06/21/20 25 2024 Active Problems Problem Noted Date Diagnosed Date Periodontal disease 04/16/2025 Tenosynovitis of finger and hand 01/17/2025 Assessment [...] this time. They will check with insurance employment evaluator/case manager or community services in the area. I spoke with her home services manager package and she will discussed with patient regarding [...] ADLs, I will order an evaluation for OIL TESTER Helicobacter pylori (H. pylori) 11/24/2022 Overview (07/10/2023): [...] she will follow up with PCP in [facility]. Her daughter will schedule fu [...] Encounters Date Type Department Care Team Description 07/05/2025 Results Follow-Up [facility] [address] [place] [phone] Twyla Cedeño MD XR Lumbar Spine Complete 4+ Views 06/21/2025 11:30 AM EDT Office Visit [facility] [address] [facility] [place] [address] Jaida Mckay DO Acute bilateral low back pain with right-sided sciatica (Primary Dx) 06/21/2025 Travel 06/21/2025 Telephone [facility] [address] [facility] [place] [address] Twyla Cedeño MD Nurse Triage 06/20/2025 1:30 PM EDT Office Visit [facility] [address] [place] [address] Richard Bautista, DMD 06/20/2025 Travel 06/18/2025 Telephone [facility] [address] [place] [address] Twyla Cedeño MD Appointment Request 06/10/2025 Refill [facility] [address] [place] [address] Twyla Cedeño MD Chronic left shoulder pain 06/06/2025 Telephone [facility] [address] [place] [address] Twyla Cedeño MD R/S appt PCP OUT 05/17/2025 1:30 PM EDT Office Visit [facility] [address] [place] [address] Tyrone Miller DDS Periodontal disease (Primary Dx) 05/07/2025 Refill [facility] [address] [place] [address] Twyla Cedeño MD 05/02/2025 Refill [facility] [address] [place] [address] Jaida Mckay DO 04/30/2025 Refill [facility] [address] [place] [address] Twyla Cedeño MD Essential hypertension 04/16/2025 1:00 PM EDT Office Visit [facility] [address] [facility] [place] [address] Tyrone Miller DDS Periodontal disease (Primary Dx) 04/16/2025 Telephone [facility] [address] [place] [address] Tyrone Miller DDS dental emergency insurance inactive ; portal discrepancy from Last 3 Months Immunizations Immunization Administration Dates Next Due Influenza Injectable Quadriv [...] the past 12 months, has t he [employer] [facility], gas, oil or water company threatened to [...] Sign Reading Time Taken Comments Blood Pressure 120/70 06/21/2025 11:55 AM EDT Pulse 80 06/21/2025 11:55 AM EDT Temperature 36.2 C (97.2 F) 06/21/2025 11:55 AM EDT Respiratory Rate 18 06/21/2025 11:55 AM EDT Oxygen Saturation 99% 01/17/2025 10:25 AM EDT Inhaled Oxygen Concentration - - Weight 72.6 kg (160 lb) 06/21/2025 11:55 AM EDT Height 154.9 cm (5' 1 ) 01/17/2025 10:25 AM EDT Body Mass Index 30.23 01/17/2025 10:25 AM EDT Plan of Treatment Upcoming Encounters Date Type Department Care Team (Late st Contact Info) Description 07/12/2025 12:00 PM EDT Office Visit [facility] [address] [place] [phone] Twyla Cedeño MD [address] [place] [address] 08/23/2025 9:30 AM EST Office Visit [facility] [address] [place] [phone] Pradeep Scott MD [address] [place] [address] Health Maintenance Due Date Last Done Comments CT Colonography 1964 FIT DNA/Cologuard 1964 FIT 1964 FOBT 1965 HIV Screening 1965 Sigmoidoscopy 1965 Disability Screening 1964 Alcohol/Substance Use Screening 1976 Pneumococcal Vaccine: 50+ Years (1 of 2 - PCV) 1983 Pap Smear 1985 Zoster Vaccines (2 of 3) 07/24/2019 05/29/2019 Mammogram 08/01/2022 08/01/2020, 10/11, 11/07/2018, Additional history exists Cervical Cancer Screening 11/23/2022 HPV/Cotest 11/23/2022 11/23/2017 Depression Screening 11/24/2023 11/24/2022, 11/24/19 23 RSV Patients and Patients Aged 60 years or older (1 - Risk 60-74 years 1-dose series) 2024 Dental Oral Exam 01/18/2025 07/19/2024 COVID-19 Vaccine (3 - season) 2025 04/14/2021, 03/18/2021 Influenza Vaccine (#1) 2025 , 09/08/2020, 06/27/2019, Additional history exists Diabetes: Foot Exam 06/14/2025 06/14/2024, 06/14/2024, 06/14/2024, Additional history exists Lipid Panel 06/14/2025 06/14/2024, 07/11, 03/18/2021, Additional history exists Diabetes: Hemoglobin A1C 07/19/2025 025, 06/14/2024, 03/09/2024, Additional history exists Dental X-Ray: Bitewings 07/20/2025 07/19/2024 Dental Prophylaxis 08/07/2025 02/04/2025, 08/03/2024 SDOH Screening 01/17/2026 01/17/2025 Tobacco Screening 06/20/2026 06/20/2025 Eye Exam 01/08/2027 01/08/2025, 04/0 10/2024, 01/08/2025, [...] patient's age to complete this topic Meningococcal B Vaccine Aged Out No l onger eligible based on patient's age to complete [...] Procedure Name Priority Date/Time Associated Diagnosis Comments MR LUMBAR SPINE WO CONTRAST Urgent 07/09/2025 3:34 PM EDT Acute bilateral low back pain with right-sided sciatica XR LUMBAR SPINE COMPLETE 4+ VIEWS Routine 06/21/2025 2:18 PM EDT CASE PRESENTATION, DETAILED AND EXTENSIVE TREATMENT PLANNING Routine 06/20/2025 1:30 PM EDT LIMITED ORAL EVALUATION - PROBLEM FOCUSED Routine 06/20/2025 1:30 PM EDT INTRAORAL - PERIAPICAL FIRST RADIOGRAPHIC IMAGE Routine 05/17/2025 1:30 PM EDT CASE PRESENTATION, DETAILED AND EXTENSIVE TREATMENT PLANNING Routine 05/17/2025 1:30 PM EDT 15 EXTRACTION, ERUPTED TOOTH OR EXPOSED ROOT (ELEVATION/FORCEPS REMOVAL) Routine 05/17/2025 1:30 PM EDT 26 EXTRACTION, ERUPTED TOOTH OR EXPOSED ROOT (ELEVATION/FORCEPS REMOVAL) Routine 04/16/2025 1:00 PM EDT 25 EXTRACTION, ERUPTED TOOTH OR EXPOSED ROOT (ELEVATION/FORCEPS REMOVAL) Routine 04/16/2025 1:00 PM EDT 24 EXTRACTION, ERUPTED TOOTH OR EXPOSED ROOT (ELEVATION/FORCEPS REMOVAL) Routine 04/16/2025 1:00 PM EDT 23 EXTRACTION, ERUPTED TOOTH OR EXPOSED ROOT (ELEVATION/FORCEPS REMOVAL) Routine 04/16/2025 1:00 PM EDT PROPHYLAXIS - ADULT Routine 02/04/2025 1 :00 PM EDT Dental calculus Dental plaque HEPATITIS PANEL, GENERAL Routine 01/17/2025 11:39 AM EDT Tendinitis of left rotator cuff Tenosynovitis of finger and hand POCT GLYCATED HEMOGLOBIN, TOTAL Routine 01/17/2025 10:25 AM EDT Type 2 diabetes mellitus without complication, without long-term current use of insulin (CMS/HCC) INTRAORAL - COMPLETE SERIES OF RADIOGRAPHIC IMAGES [...] Recently Relevant to Health Maintenance Results * MR Lumbar Spine w/o Contrast (07/09/2025 3:34 PM EDT) Anatomical Region Laterality Modality Spine, L-spine Magnetic Resonan ce 07/09/2025 3:34 PM EDT Narrative 07/09/2025 4:14 PM EDT [place] [address] Magnetic Resonance Report Signed Patient: Lorena Zamudio MR#: [id number] : 1965 Acct:[id number] Age/Sex: 59 / F ADM Date: 07/09/25 Loc: HO.MRI Attending Dr: Jaida Mckay DO Ordering Physician: Jaida Mckay DO Date of Service: 07/09/25 Procedure(s): MR lumbar spine wo con Accession Number(s): [id number] cc: Twyla Cedeño MD; Jaida Mckay DO Reason for Exam: LBP with severe pain radiating down R leg EXAM: MRI Lumbar Spine without Contrast. TECHNIQUE: Multiplanar multisequence MRI of the lumbar spine with performed without contrast. INDICATION: LBP with severe pain radiating down R leg PRIOR: X-ray 06/21/2025 FINDINGS: 5 non-rib bearing lumbar segments on x-ray. Marrow and end-plates: There are no marrow replacing lesions. Alignment: There is mild convex right curvature of the lumbar spine. Soft tissues: Paraspinal soft tissues and major vascular structures are unremarkable. Conus: The termination of conus medullaris is within normal limits at the level of L1-L2. T12-L1: There is no disc bulge, herniation, spinal stenosis, or foraminal narrowing. There is minimal facet arthropathy. L1-L2: There is no disc bulge, herniation, spinal stenosis, or foraminal narrowing. L2-L3: There is disc desiccation with circumferential broad-based disc bulge. There is ligamentum flavum thickening. There is minimal spinal stenosis Without foraminal narrowing. L3-L4: Circumferential broad-based disc bulge and mild ligamentum flavum thickening results in mild spinal stenosis. There is minimal subarticular zone narrowing and mild left foraminal narrowing. There is no right-sided foraminal narrowing. L4-L5: There is circumferential broad-based disc bulge with small central protrusion indents thecal sac. There is ligament flavum thickening and mild facet arthropathy. There is no spinal stenosis. There is mild subarticular zone narrowing. There is mild left greater than right foraminal narrowing. L5-S1: There is grade 1 anterolisthesis. 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 There is moderate facet arthropathy. There is no spinal stenosis. There is no subarticular zone narrowing. There is severe right and moderate left foraminal narrowing with likely encroachment of the right L5 nerve root. MR/MR lumbar spine wo con IMPRESSION: L2-L3: There is minimal spinal stenosis. L3-L4: There is mild spinal stenosis and minimal subarticular zone narrowing. L5-S1: There is grade 1 anterolisthesis related to chronic bilateral pars interarticular is defects contributing to severe right and moderate left foraminal narrowing with likely encroachment of the right L5 nerve root. Electronically signed by: Ross Reich MD 07/09/2025 04:11 PM EDT RP Dictated By: Ross Reich MD Signed By: <Electronically signed by Ross Reich MD in OV> 07/09/25 1611 DD/ 1534 TD/TT: 07/09/25 1549 Watchguard: Procedure Note Donotuseinterpreter, Image - 07/09/[address] [address] Magnetic Resonance Report Signed Patient: Lorena ZamudioMR#: [id number] : 1965Acct:[id number] Age/Sex: 59 / FADM Date: 07/09/25 Loc: HO.MRI Attending Dr: Jaida Mckay DO Ordering Physician: Jaida Mckay DO Date of Service: 07/09/25 Procedure(s): MR lumbar spine wo con Accession Number(s): [id number] cc: Twyla Cedeño MD; Jaida Mckay DO Reason for Exam: LBP with severe pain radiating down R leg EXAM: MRI Lumbar Spine without Contrast. TECHNIQUE: Multiplanar multisequence MRI of the lumbar spine with performed without contrast. INDICATION: LBP with severe pain radiating down R leg PRIOR: X-ray 06/21/2025 FINDINGS: 5 non-rib bearing lumbar segments on x-ray. Marrow and end-plates: There are no marrow replacing lesions. Alignment: There is mild convex right curvature of the lumbar spine. Soft tissues: Paraspinal soft tissues and major vascular structures are unremarkable. Conus: The termination of conus medullaris is within normal limits at the level of L1-L2. T12-L1: There is no disc bulge, herniation, spinal stenosis, or foraminal narrowing. There is minimal facet arthropathy. L1-L2: There is no disc bulge, herniation, spinal stenosis, or foraminal narrowing. L2-L3: There is disc desiccation with circumferential broad-based disc bulge. There is ligamentum flavum thickening. There is minimal spinal stenosis Without foraminal narrowing. L3-L4: Circumferential broad-based disc bulge and mild ligamentum flavum thickening results in mild spinal stenosis. There is minimal subarticular zone narrowing and mild left foraminal narrowing. There is no right-sided foraminal narrowing. L4-L5: There is circumferential broad-based disc bulge with small central protrusion indents thecal sac. There is ligament flavum thickening and mild facet arthropathy. There is no spinal stenosis. There is mild subarticular zone narrowing. There is mild left greater than right foraminal narrowing. L5-S1: There is grade 1 anterolisthesis. 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 There is moderate facet arthropathy. There is no spinal stenosis. There is no subarticular zone narrowing. There is severe right and moderate left foraminal narrowing with likely encroachment of the right L5 nerve root. MR/MR lumbar spine wo con IMPRESSION: L2-L3: There is minimal spinal stenosis. L3-L4: There is mild spinal stenosis and minimal subarticular zone narrowing. L5-S1: There is grade 1 anterolisthesis related to chronic bilateral pars interarticular is defects contributing to severe right and moderate left foraminal narrowing with likely encroachment of the right L5 nerve root. Electronically signed by: Ross Reich MD 07/09/2025 04:11 PM EDT Dictated By: Ross Reich MD Signed By: <Electronically signed by Ross Reich MD in OV> 07/09/25 1611 DD/ 1534 TD/TT: 07/09/25 1549 Watchguard: Jaida Mckay DO IMG MRI PROCEDURES Final Res ult * XR Lumbar Spine Complete 4+ Views (06/21/2025 2:18 PM EDT) Anatomical Region Laterality Modality Spine, L-spine Radiographic Lisa ging 06/21/2025 2:18 PM EDT Narrative 06/21/2025 2:30 PM EDT [address] [address] XRay Report Signed Patient: Lorena Zamudio MR#: [id number] : 1965 Acct:[id number] Age/Sex: 59 / F ADM Date: 06/21/25 Loc: HO.HHCX Attending Dr: Jaida Mckay DO Ordering Physician: Jaida Mckay DO Date of Service: 06/21/25 Procedure(s): XR lumbar spine 4V min Accession Number(s): [id number] cc: Twyla Cedeño MD; Jaida Mckay DO Reason for Exam: severe LBP radiating down r leg EXAMINATION: XR LUMBOSACRAL SPINE WITH OBLIQUES CLINICAL INFORMATION: severe LBP radiating down r leg COMPARISON: None available. TECHNIQUE: AP oblique and lateral views FINDINGS: Multilevel endplate sclerosis marginal osteophyte formation and decreased intervertebral disc height. S-shaped curvature of the lumbar spine which could be positional. Grade 1 anterolisthesis L5-S1. No acute cortical disruption. Sclerosis and sacroiliac joints. Spina bifida occulta S1, congenital.. XR/XR lumbar spine 4V min IMPRESSION: Mild scoliosis. Multilevel thoracolumbar spondylosis. Grade 1 anterolisthesis L5-S1. Electronically signed by: Joel Perez MD 06/21/2025 02:27 PM EDT Dictated By: Joel Montesinos MD Signed By: <Electronically signed by Joel Bonner MD in OV> 06/21/25 1427 DD/ 1418 TD/TT: 06/21/25 1421 Watchguard: Procedure Note Donotuseinterpreter, Image - 06/21/[address] [address] XRay Report Signed Patient: Lorena ZamudioMR#: [id number] : 1965Acct:[id number] Age/Sex: 59 / FADM Date: 06/21/25 Loc: HO.HHCX Attending Dr: Jaida Mckay DO Ordering Physician: Jaida Mckay DO Date of Service: 06/21/25 Procedure(s): XR lumbar spine 4V min Accession Number(s): [id number] cc: Twyla Cedeño MD; Jaida Mckay DO Reason for Exam: severe LBP radiating down r leg EXAMINATION: XR LUMBOSACRAL SPINE WITH OBLIQUES CLINICAL INFORMATION: severe LBP radiating down r leg COMPARISON: None available. TECHNIQUE: AP oblique and lateral views FINDINGS: Multilevel endplate sclerosis marginal osteophyte formation and decreased intervertebral disc height. S-shaped curvature of the lumbar spine which could be positional. Grade 1 anterolisthesis L5-S1. No acute cortical disruption. Sclerosis and sacroiliac joints. Spina bifida occulta S1, congenital.. XR/XR lumbar spine 4V min IMPRESSION: Mild scoliosis. Multilevel thoracolumbar spondylosis. Grade 1 anterolisthesis L5-S1. Electronically signed by: Joel Perez MD 06/21/2025 02:27 PM EDT RP Dictated By: Joel Montesinos MD Signed By: <Electronically signed by Joel Bonner MDin OV> 06/21/25 1427 DD/ 1418 TD/TT: 06/21/25 1421 Watchguard: us Jaida Mckay DO IMG XR PROCEDURES Final Resu lt * Hepatitis Panel, General (01/17/2025 11:39 AM EDT) Hepatitis A IgM Nonreactive Nonreactive [facility] Comment:IgM antibodies to LYNCH V not detected; does not exclude earlyacute or recovered HAV infection. ~Hepatitis B Surface Antibody NONREACTIVE Nonreactive [facility] Comment:Nonreactive: < 8.00 mIU/mL Hepatitis B Core Antibody Nonreactive Nonreactive [facility] Hepatitis C Antibody Nonreactive Nonreactive [facility] Comment:Antibodies to HCV no t detected; does not exclude early acuteHCV infection. Hepatitis B Surface Ag Negative Negative [facility] Blood 01/17/2025 11:3 9 AM EDT 01/17/2025 1:33 PM EDT us Twyla Cedeño MD LAB BLOOD ORDERABLES Fin al Result [facility] [address] [place] [phone] * (ABNORMAL) POCT HGB A1C (01/17/2025 10:25 AM EDT) Hemoglobin A1C 6.6(A) 4.0 - 6.0 % QC Media Lot # [id number] Lot# Expiration Date ,588 Blood 01/17/2025 10:2 5 AM EDT Twyla Cedeño MD POINT OF CARE TEST ENTER /EDIT ORDERABLES Final Result * Lipid Panel with Reflex to Direct LDL (06/14/2024 1:37 PM EDT) Triglycerides 106 <150 mg/dL [facility] Comment:Desirable Triglyceri de: less than 150 mg/dLBorderline High Triglyceride 150-199 mg/dLHigh Triglyceride: 200-499 mg/dLVery High Triglyceride: greater than or equal to 5OO mg/dL Cholesterol 137 <200 mg/dL [facility] Comment:Desirable Cholestero l: less than 200 mg/dLBorderline High Cholesterol: 200-239 mg/dLHigh Cholesterol: greater than 239 mg/dL LDL Cholesterol Calculated 75 <100 mg/dL [facility] Comment:Desirable LDL: less than 100 mg/dLNear Optimal/Above Optimal LDL: 110- 129 mg/dLBorderline High LDL: 130-159 mg/dLHigh LDL: 160-189 mg/dLVery High LDL: greater than or equal to 190 mg/dL HDL Cholesterol 41 >40 mg/dL [facility] Comment:Desirable HDL: great er than 40 mg/dL Note: This HDL assay may give artificially low results in patients with liver disease. Blood 06/14/2024 1:37 PM EDT 06/14/2024 4:32 PM EDT Twyla Cedeño MD LAB BLOOD ORDERABLES Fin al Result [facility] [address] [place] [phone] * (ABNORMAL) Hm Colonoscopy (11/05/2022) Colonoscopy Abnormal( A) Normal [facility] Comment:adenomatous polyps a nd Diverticulosis 11/05/2022 Twyla Cedeño MD HEALTH MAINTENANCE Final Result [facility] [address] [place] [phone] * Mammography Report 1 (08/01/2020 12:16 [...] HPV mRNA E6/E7 Not Detected NOT DETECTED [facility] Comment: This test was performed using the APTIMA(R) HPV Assay ([employer] This assay detects E6/E7 viral messenger RNA (mRNA) from 14 high-risk HPV types (16,18,31,33,35,39,45,51, 52,56,58,59,66,68). For additional information please refer to: http://education.Relcy.TripTouch/faq/XFM955z3 (This link is being provided for informational/ educational purposes only.) Test Performed by [employer], [employer] [facility], [address] [place] [address] Narciso Diallo M.D., Ph.D., Director of Laboratories , [facility] [id number] Please note: Effective 06/21/2016, HPV testing will be performed using [employer]'s APTIMA test which targets mRNA. Detecting mRNA instead of DNA, as in older methods, offers significant improvements in specificity. 11/23/2017 10:0 6 AM EST us Farhana Buenrostro CNM HISTORICAL/NON ORDERABLE LABS Final Result [facility] [address] from Last 3 Months or Most Recently Relevant to Health Maintenance Insurance [employer] [facility] [employer] ST[place] AD[place] Care Teams Crisis Intervention Specialist Relationship Specialty Start Date End Date Twyla Cedeño MD [address] [place] [phone] PCP - General Family Medicine 09/27/17
--- OUTSIDE RECORDS SUMMARY | 2025-07-09 16:44 | XMS_ITS | Encounter Summary ---
Author Organization [employer] Address [address] [facility] 7t [place] [address] Care Team Providers Care Custody Assistant Name Role Phone Twyla Cedeño MD Primary Care Provider + Reason for Visit * Reason Comments Med Refill Encounter Details Date Type Department Care Team (Late st Contact Info) Description 04/30/2024 Refill [facility] MED & PEDS [address] [place], [place] [phone] Janny Wheatley MD [address] [place] [address] Social History Tobacco Use Types Packs/Day Years Used Date Smoking Tobacco: Never Smokeless Tobacco: Never Alcohol Use Standard Drinks/Week Comments Never 0 (1 standard drink = 0.6 oz pur e alcohol) Housing Stability Answer Date Recorded What is your housing situation today? I have sevenwilliam navarro 08/03/[address] you [...] Description 07/12/2025 12:00 PM EDT Office Visit [facility] MEDICINE [address] [place] [address] Twyla Cedeño MD [address] [place] [address] 08/23/2025 9:30 AM EST Office Visit [facility] [address] [place] [address] Pradeep Scott MD [address] [place] [address] documented as of this encounter Visit Diagnoses Not on filedocumented in this encounter Care Teams Custody Assistant Relationship Specialty Start Date End Date Twyla Cedeño MD [address] [place] [address] [phone] PCP - General Family Medicine 09/27/17 documented as of this encounter
--- OUTSIDE RECORDS SUMMARY | 2025-07-09 16:44 | XMS_ITS | Clinical Summary ---
Author Organization Located Within [facility] Address [address] [place] [phone] Phone Care Team Providers Care Cobol Application Developer Name Role Phone Twyla Cedeño MD Primary [...] topic Medical Devices Not on file Insurance [facility] C3 ACO C3 ACO C3 ACO C3 ACO C3 ACO C3 ACO C3 ACO Care Teams Cobol Application Developer Relationship Specialty Start Date End Date Twyla Cedeño MD [address] [place] [address] [address] [place] [phone] PCP - General Internal Medicine 04/26/22 Additional Source Comments The information contained in this document represents components of the legal health record. It is not the complete legal health record.Located [facility]
--- OUTSIDE RECORDS SUMMARY | 2025-07-09 16:44 | XMS_ITS | Encounter Summary ---
Author Organization [employer] Address 75 [facility] 7t [place] [address] Care Team Providers Care Chemical Reclamation Equipment Operator Name Role Phone Twyla Cedeño MD Primary Care Provider + Reason for Visit * Reason Onset Date Comments Appointment Request 06/18/2025 Encounter Details Date Type Department Care Team ([facility] st Contact Info) Description 06/18/2025 Telephone [facility] MEDICINE 230 [place], [place] [phone] Twyla Cedeño MD 230 [place], [place] [phone] Appointment Request Social History Tobacco Use Types Packs/Day Years [...] t he electric, gas, oil or water [employer] threatened to shut off services in your [...] encounter Miscellaneous Notes * Telephone Encounter - Jeff Stacy - 06/18/2025 1:10 PM EDT Tc from pt requesting to r/s derm apt due to not being availab\le at that time. Contact pt at [phone] documented in this encounter Plan of Treatment Upcoming Encounters Date Type Department Care Team (Late st Contact Info) Description 07/12/2025 12:00 PM EDT Office Visit [facility] MEDICINE [address] [place] [address] Twyla Cedeño MD [address] [place] [address] 08/23/2025 9:30 AM EST Office Visit [facility] MEDICINE [address] [place] [address] MaryCAYMUS MEDICALPradeep atkins MD [address] [place] [address] documented as of this encounter Visit Diagnoses Not on filedocumented in this encounter Care Teams Chemical Reclamation Equipment Operator Relationship Specialty Start Date End Date Twyla Cedeño MD [address] [place] [phone] PCP - General Family Medicine 09/27/17 documented as of this encounter
--- OUTSIDE RECORDS SUMMARY | 2025-07-09 16:44 | XMS_ITS | Encounter Summary ---
Author Organization [employer] Address [address] [place] [address] 7t [place] [address] Care Team Providers Care Lawn Mower Sharpener Name Role Phone Twyla Cedeño MD Primary Care Provider + Reason for Visit * Reason Comments Med Refill Encounter Details Date Type Department Care Team (Late Contact Info) Description 06/15/2023 Refill [facility] MEDICINE [address] [place] [address] [phone] Twyla Cedeño MD 230 [place], [place] [phone] Social History Tobacco Use Types Packs/Day Years [...] 12:00 PM EDT Office Visit [facility] MEDICINE [address] [place], [place] [phone] Twyla Cedeño MD [address] [place], [place] [phone] 08/23/2025 9:30 AM EST Office Visit [facility] MEDICINE [address] [place], [place] [phone] Pradeep Scott MD [address] [place], [place] [phone] documented as of this encounter Visit Diagnoses Not on filedocumented in this encounter Care Teams Lawn Mower Sharpener Relationship Specialty Start Date End Date Twyla Cedeño MD [address] [place] [address] [phone] PCP - General Family Medicine 09/27/17 documented as of this encounter
--- OUTSIDE RECORDS SUMMARY | 2025-07-09 16:44 | XMS_ITS | Encounter Summary ---
Author Organization [employer] Address 75 [facility] 7t [place] [address] Care Team Providers Care Echo Vascular Tech Name Role Phone Twyla Cedeño MD Primary Care Provider + Encounter Details Date Type Department Care Team (Latest Contact Info) Description 11/03/2018 Abstract [facility] CONVERSIONS Dental, Provider, DDS Social History [...] Description 07/12/2025 12:00 PM EDT Office Visit [facility] MEDICINE [address] [place] [phone] Twyla Cedeño MD [address] [place] [address] 08/23/2025 9:30 AM EST Office Visit [facility] MEDICINE [address] [place] [address] Pradeep Scott MD [address] [place] [address] documented as of this encounter Visit Diagnoses Not on filedocumented in this encounter Care Teams Echo Vascular Tech Relationship Specialty Start Date End Date Twyla Cedeño MD [address] [place] [address] PCP - General Family Medicine 09/27/17 documented as of this encounter
--- OUTSIDE RECORDS SUMMARY | 2025-07-09 16:44 | XMS_ITS | Encounter Summary ---
Author Organization [employer] Address 75 [facility] 7t [place] [address] Care Team Providers Care Marble Machine Tender Name Role Phone Twyla Cedeño MD Primary Care Provider + Reason for Visit * Reason Comments Med Refill Encounter Details Date Type Department Care Team ([facility] st Contact Info) Description 05/30/2024 Refill [facility] DIABETES/NUTRITION 230 [place], [place] [phone] Twyla Cedeño MD 230 [place] [address] Tinea corporis Social History Tobacco Use Types [...] Description 07/12/2025 12:00 PM EDT Office Visit [facility] MEDICINE [address] [place] [address] Twyla Cedeño MD [address] [place] [address] 08/23/2025 9:30 AM EST Office Visit [address] [address] Pradeep Scott MD [address] [place] [address] documented as of this encounter Visit Diagnoses Diagnosis Tinea corporis Dermatophytosis of the body documented in this encounter Care Teams Marble Machine Tender Relationship Specialty Start Date End Date Twyla Cedeño MD [address] [place] [phone] PCP - General Family Medicine 09/27/17 documented as of this encounter
== END 2025-07-09 15:23 | disposition home or self-care (01) ==
LOC: HO.MRI 15:22
PROVIDERS: PCP Internal Medicine; Visit Provider Family Medicine
DX: M54.41 Lumbago with sciatica, right side (principal)
CPT/HCPCS: 72148

== ENCOUNTER 2025-07-30 14:10 | Outpatient (REF) | payer MEDICAID, SELFPAY ==
--- OUTSIDE RECORDS SUMMARY | 2025-07-30 19:05 | XMS_ITS | Encounter Summary ---
Author Organization [employer] Address [address] [place] [address] 7t [place] [address] Care Team Providers Care Complaint Supervisor Name Role Phone Twyla Cedeño MD Primary Care Provider + Reason for Visit * Reason Comments Med Refill Encounter Details Date Type Department Care Team (Late st Contact Info) Description 06/15/2023 Refill [facility] MEDICINE [address] [place] [address] [phone] Twyla Cedeño MD 230 [place], [place] [phone] Social History Tobacco Use Types Packs/Day Years [...] Care Team (Late st Contact Info) Description 08/23/2025 1:00 PM EST Office Visit [facility] MEDICINE 230 [place], [place] [phone] Pradeep Scott MD 230 [place], [place] [phone] documented as of this encounter Visit Diagnoses Not on filedocumented in this encounter Care Teams Complaint Supervisor Relationship Specialty Start Date End Date Twyla Cedeño MD [address] [place] [phone] PCP - General Family Medicine 09/27/17 documented as of this encounter
--- OUTSIDE RECORDS SUMMARY | 2025-07-30 19:05 | XMS_ITS | Encounter Summary ---
Author Organization [employer] Address 75 [facility] 7t [place] [address] Care Team Providers Care Visual Design Lead Name Role Phone Twyla Cedeño MD Primary Care Provider + Reason for Visit * Reason Onset Date Comments dental emergency insurance inactive 04/16/2025 portal discrepancy 04/16/2025 Encounter Details Date Type Department Care Team (Late st Contact Info) Description 04/16/2025 Telephone [facility] ADULT DENTAL [address] [place], [place] [phone] Tyrone Miller, DDS [address] [place], [place] [phone] dental emergency insurance inactive ; portal discrepancy [...] - 04/16/2025 10:17 AM EDT Spoke with [facility] vest front presser and they will send email for portal [...] Description 08/23/2025 1:00 PM EST Office Visit [facility] MEDICINE [address] [place], [place] [phone] Pradeep Scott MD 230 [place] [address] documented as of this encounter Visit Diagnoses Not on filedocumented in this encounter Care Teams Visual Design Lead Relationship Specialty Start Date End Date Twyla Cedeño MD 230 [place] [address] PCP - General Family Medicine 09/27/17 documented as of this encounter
--- OUTSIDE RECORDS SUMMARY | 2025-07-30 19:05 | XMS_ITS | Encounter Summary ---
Author Organization [employer] Address 75 [facility] 7t [place] [address] Care Team Providers Care Drug Abuse Technician Name Role Phone Twyla Cedeño MD Primary Care Provider + Reason for Visit * Reason Onset Date Comments Appointment Request 06/18/2025 Encounter Details Date Type Department Care Team ([facility] st Contact Info) Description 06/18/2025 Telephone [facility] MEDICINE 230 [place], [place] [phone] Twyla Cedeño MD 230 [place], [place] [phone] Appointment Request Social History Tobacco Use Types [...] availab\le at that time. Contact pt at [phone] documented in this encounter Plan of Treatment Upcoming Encounters Date Type Department Care Team (Late st Contact Info) Description 08/23/2025 1:00 PM EST Office Visit [facility] MEDICINE 230 [place], [place] [phone] Pradeep Scott MD 230 [place] [address] documented as of this encounter Visit Diagnoses Not on filedocumented in this encounter Care Teams Drug Abuse Technician Relationship Specialty Start Date End Date Twyla Cedeño MD [address] [place] [address] PCP - General Family Medicine 09/27/17 documented as of this encounter
--- OUTSIDE RECORDS SUMMARY | 2025-07-30 19:05 | XMS_ITS | Encounter Summary ---
Author Organization [employer] Address 75 [facility] 7t [place] [address] Care Team Providers Care Receiving Tank Operator Name Role Phone Twyla Cedeño MD Primary Care Provider + Reason for Visit * Reason Comments Med Refill Encounter Details Date Type Department Care Team ([facility] st Contact Info) Description 07/27/2024 Refill [facility] DIABETES/NUTRITION 230 [place], [place] [phone] Twyla Cedeño MD 230 [place] [address] Tinea corporis Social History Tobacco Use Types [...] Description 08/23/2025 1:00 PM EST Office Visit [facility] MEDICINE [address] [place] [address] Pradeep Scott MD 230 [place] [address] documented as of this encounter Visit Diagnoses Diagnosis Tinea corporis Dermatophytosis of the body documented in this encounter Care Teams Receiving Tank Operator Relationship Specialty Start Date End Date Twyla Cedeño MD [address] [place] [address] PCP - General Family Medicine 09/27/17 documented as of this encounter
--- OUTSIDE RECORDS SUMMARY | 2025-07-30 19:05 | XMS_ITS | Encounter Summary ---
Author Organization [employer] Address 75 [facility] 7t [place] [address] Care Team Providers Care Assembler Billiard Table Name Role Phone Twyla Cedeño MD Primary Care Provider + Reason for Visit * Reason Comments Med Refill Encounter Details Date Type Department Care Team (Late st Contact Info) Description 06/10/2025 Refill [facility] MEDICINE 230 [place], [place] [phone] Twyla Cedeño MD 230 [place], [place] [phone] Chronic left shoulder pain Social History Tobacco [...] Description 08/23/2025 1:00 PM EST Office Visit [facility] MEDICINE [address] [place] [address] Pradeep Scott MD [address] [place] [phone] documented as of this encounter Visit Diagnoses Diagnosis Chronic left shoulder pain Pain in joint, shoulder region documented in this encounter Care Teams Assembler Billiard Table Relationship Specialty Start Date End Date Twyla Cedeño MD [address] [place] [phone] PCP - General Family Medicine 09/27/17 documented as of this encounter
--- OUTSIDE RECORDS SUMMARY | 2025-07-30 19:05 | XMS_ITS | Encounter Summary ---
Author Organization [employer] Address 75 [facility] 7t [place] [address] Care Team Providers Care Permastone Mechanic Name Role Phone Twyla Cedeño MD Primary Care Provider + Encounter Details Date Type Department Care Team (Latest Contact Info) Description 03/26/2021 Abstract [facility] CONVERSIONS Dental, Provider, DDS Social History Tobacco [...] Description 08/23/2025 1:00 PM EST Office Visit [facility] MEDICINE 230 [place] [address] Pradeep Scott MD 230 [place] [address] documented as of this encounter Visit Diagnoses Not on filedocumented in this encounter Care Teams Permastone Mechanic Relationship Specialty Start Date End Date Twyla Cedeño MD 230 [place] [address] PCP - General Family Medicine 09/27/17 documented as of this encounter
--- OUTSIDE RECORDS SUMMARY | 2025-07-30 19:05 | XMS_ITS | Encounter Summary ---
Author Organization [email or web address] Address 75 [facility] 7t [place] [address] Care Team Providers Care Revival Clerk Name Role Phone Twyla Cedeño MD Primary Care Provider + Reason for Visit * Reason Onset Date Comments Med Refill 07/30/2025 Encounter Details Date Type Department Care Team ([facility] st Contact Info) Description 07/30/2025 Refill [facility] MEDICINE 230 [place], [place] [phone] Twyla Cedeño MD [address] [place], [place] [phone] Social History Tobacco Use Types Packs/Day Years Used Date Smoking Tobacco: Never Smokeless Tobacco: Never Alcohol Use Standard Drinks/Week Comments Never 0 (1 standard drink = 0.6 oz pur e alcohol) Depression Answer Date Recorded Patient Health Questionnaire-9 Score 12 07/12/2025 Patient Health Questionnaire-9 Score 12 07/12/2025 Last PHQ-9: Questionnaire Data Not on file 1 Housing Stability Answer Date Recorded What is [...] Answer Date Recorded Patient Health Questionnaire-2 Score 6 07/12/2025 Internet Access Answer Date Recorded Internet Access [...] encounter Miscellaneous Notes * Telephone Encounter - Laine [place] LPN - 07/30/2025 3:37 PM EDT Last seen 07/12/25 * Telephone Encounter - Jeff Stacy - 07/30/2025 3:35 PM EDT TC from pt requesting medication refill. Medications needing refill : Januvia 50 MG tablet To be sent to: [facility] - [place], [place] - [address] [facility] documented in this encounter Plan of Treatment Upcoming Encounters Date Type Department Care Team (Late st Contact Info) Description 08/23/2025 1:00 PM EST Office Visit [facility] MEDICINE 230 [place] [address] Pradeep Scott MD [address] [place] [address] documented as of this encounter Visit Diagnoses Not on filedocumented in this encounter Additional Health Concerns Assessment Noted Time PHQ-9 Depression Total Score: 12 025 2:53 PM EDT documented as of this encounter Care Teams Revival Clerk Relationship Specialty Start Date End Date Twyla Cedeño MD [address] [place] [phone] PCP - General Family Medicine 09/27/17 documented as of this encounter
--- OUTSIDE RECORDS SUMMARY | 2025-07-30 19:05 | XMS_ITS | Clinical Summary ---
Author Organization [employer] Address [address] [facility] [address] [place] [address] Care Team Providers Care Esters And Emulsifiers Supervisor Name Role Phone Bobo Dumont MD Primary Care Provider + Allergies Active Allergy Reactions Criticality Noted Date Comments [place] Oil 06/14/2024 Citrullus Vulgaris 02/04/2025 Medications Blood Pressure Monitoring (Omron 3 Series BP Monitor) device USE TO CHECK BLOOD PRESSURE EVERY DAY 022 Active Sodium Fluoride (PreviDent) 1.1 % gel Use at bed time every night spit do not rinse for 30 min. 019 Active zoster vaccine, live, (Zostavax) 01925 UNT/0.65ML injection inject 0.65 milliliter by subcutaneous route once 019 Active Continuous Glucose Sensor (FreeStyle Sony 2 Sensor) [facility] Apply 1 sensor every 14 days 2 each 024 Active glucose blood (FREESTYLE LITE) test stripIndication s:Type 2 diabetes mellitus without complication, without long-term current use of insulin ([facility]) TEST BLOOD SUGAR THREE TIMES DAILY 100 strip 1 024 Active TRUEplus Lancets 33G miscIndications :Type 2 diabetes mellitus without complication, without long-term current use of insulin ([facility]) TEST BLOOD SUGAR THREE TIMES DAILY 100 each 11 024 Active famotidine (Pepcid) 40 MG tabletIndicatio ns:Gastroesopha geal reflux disease with esophagitis without hemorrhage TAKE 1 TABLET BY MOUTH AT BEDTIME NEEDED 90 tablet 1 025 Active glucose blood (FreeStyle Precision Georgi Test) test stripIndication s:Type 2 diabetes mellitus without complication, without long-term current use of insulin (HCC) USE DIRECTED TO TEST BLOOD SUGAR THREE TIMES DAILY 100 strip 3 Active FT Antacid Extra Strength 750 MG chewable tablet CHEW 1 TABLET BY MOUTH TWICE DAILY 180 tablet 1 Active atorvastatin (Lipitor) 20 MG tabletIndicatio ns:Type 2 diabetes mellitus without complication, without long-term current use of insulin (HCC) TAKE 1 TABLET BY MOUTH AT BEDTIME 90 tablet 1 Active lisinopril 5 MG tabletIndicatio ns:Essential hypertension TAKE 1 TABLET BY MOUTH EVERY MORNING 90 tablet 1 Active loratadine (Claritin) 10 MG tablet TAKE 1 TABLET BY MOUTH EVERY DAY 90 tablet 1 Active metoprolol succinate XL (Toprol-XL) 25 MG 24 hr tabletIndicatio ns:Essential hypertension TAKE 1 TABLET BY MOUTH EVERY MORNING 90 tablet 1 Active Continuous Glucose Dermatologist Managing Partner (FreeStyle Sony 2 [place]) device Scan sensor every 8 hours 1 each Active gabapentin (Neurontin) 600 MG tablet Take 0.5 tablets (300 mg) by mouth 3 times daily. 45 tablet 3 025 2025 Active Diclofenac Sodium 1 % gel Apply 2 g topically if needed in the morning, at noon, in the evening, and at bedtime (pain). 150 g Active Lidocaine (HM Lidocaine Patch) 4 % patch Apply 1 patch topically Once per day. 30 patch 025 2024 Active naproxen (Naprosyn) 500 MG tablet TAKE 1 TABLET BY MOUTH TWICE DAILY IN THE MORNING AND AT BEDTIME NEEDED FOR MILD PAIN 20 tablet 1 Active baclofen (Lioresal) 10 MG tablet TAKE 1 TABLET BY MOUTH THREE TIMES DAILY IN THE MORNING, AT NOON, AND AT BEDTIME NEEDED FOR MUSCLE SPASMS 60 tablet 1 Active acetaminophen (Tylenol 8 Hour) 650 MG ER tablet TAKE 1 TABLET BY MOUTH EVERY 8 HOURS NEEDED FOR MILD PAIN DO NOT BREAK, CRUSH, DISSOLVE OR CHEW 60 tablet 1 10/17/2 025 Active SITagliptin (Januvia) 50 MG tablet Take 1 tablet (50 mg) by mouth in the morning. 30 tablet 3 025 Active Menthol, Topical Analgesic, (Icy Hot) 5 % patch Use on affected area 14 patch 024 2024 Discontinued(C ost of medication) Januvia 50 MG tablet TAKE 1 TABLET BY MOUTH EVERY MORNING 30 tablet 3 025 2024 Discontinued(R eorder (will not trigger notification to Pharmacy)) naproxen (Naprosyn) 500 MG tablet Take 1 tablet (500 mg) by mouth if needed in the morning and at bedtime for mild pain. 20 tablet 1 025 2024 Discontinued baclofen (Lioresal) 10 MG tablet Take 1 tablet (10 mg) by mouth if needed in the morning, at noon, and at bedtime for muscle spasms. 60 tablet 1 025 2024 Discontinued acetaminophen (Tylenol 8 Hour) 650 MG ER tablet Take 1 tablet (650 mg) by mouth every 8 (eight) hours if needed for mild pain. Do not crush, chew, or split. 60 tablet 1 025 2024 Discontinued lidocaine (Lidoderm) 5 % patch Apply 1 patch topically Once per day. Remove & discard patch within 12 hours or as directed by MD. 20 patch 025 2024 Discontinued(D ose adjustment) Active Problems Problem Noted Date Diagnosed Date Lumbar radiculopathy, chronic 07/12/2025 Assessment & Plan (07/12/2025 1:49 PM EDT): See above spinal stenosis, declined referral to pain clinic at this time Spinal stenosis of lumbosacral region 07/12/2025 Assessment & Plan (07/12/2025 1:49 PM EDT): We discussed at length regarding physiopathology on evaluation of the condition. She wants to hold off on epidural injection at this time, will refer to PT and follow-up with patient in 3 months Continue naproxen and Tylenol as needed + gabapentin. I gave her information to contact a puncture clinic Red flags to go to ED discussed with patient including progressive leg weakness or pain, persistent numbness, urinary or stool retention. Screening mammogram for breast cancer 07/12/2025 Assessment & Plan (07/12/2025 1:47 PM EDT): Order later this year but she never followed up. Agreed to have it rescheduled this year Periodontal disease 04/16/2025 Tenosynovitis of finger and [...] this time. They will check with insurance counseling case manager or community services in the area. I spoke with her home services aquatic facility manager and she will discussed with patient [...] left rotator cuff 04/24/2023 Assessment & Plan (07/12/2025 1:48 PM EDT): Improved while being off atorvastatin. Advised to go back to atorvastatin and see if symptoms are worse again then I will change to a different statin. She sees orthopedics, has declined intra-articular injection or further PT. Take naproxen or Tylenol as needed Assessment & Plan (01/23/2025 6:39 PM EDT): [...] ADLs, I will order an evaluation for CIVIL CADD TECHNICIAN Helicobacter pylori (H. pylori) 11/24/2022 Overview (07/10/2023): [...] Microalbuminuric diabetic nephropathy 10/31/2017 Tinea pedis 10/31/2017 Hyperlipidemia 09/29/2017 Assessment & Plan (03/09/2024 3:53 PM EDT): On atorvastatin 20mg, check lipids. Recommended moderate amount of exercise and increase consumption of fruit, vegetables, fish and high fiber foods. Should decrease consumption of highly saturated fats or trans fats. Acute vaginitis 09/29/2017 Obesity 09/29/2017 Assessment & Plan (07/12/2025 1:46 PM EDT): Discussed re weight reduction options including exercise, life style modifications, diet. Recommended to decrease soda and sugary beverage consumption, increase protein intake with meals (at least 1 portion of protein with each meal) to assist with satiety, increase dietary fiber Recommended at least 150 min/week of moderate intensity exercise tolerated. Type 2 diabetes mellitus wit hout complication, without long-term current use of insulin 09/29/2017 Assessment & Plan (07/12/2025 1:45 PM EDT): Controlled, A1c is at goal. Continue on Januvia 50 mg. Counseled re more frequent low calorie/carb meals. Check fgstk once daily Encouraged physical activity as tolerated. FU in 3 months. Agreed to have influenza immunization, declined COVID and PCV. Advised her to have zoster and RSV immunizations and there is pharmacy. Assessment & Plan (07/12/2025 1:43 PM EDT): >>ASSESSMENT AND PLAN FOR TYPE 2 DIABETES MELLITUS WITHOUT COMPLICATION WRITTEN ON 11/24/2022 10:59 AM BY TRICIA GARCIA Controlled. A1c is at goal. Continue on Januvia. Counseled re more frequent low calorie/carb meals. Check fgstk once daily Encouraged physical activity as tolerated. Referred to DM educator. FU in 3 months. Assessment & Plan (07/12/2025 1:43 PM EDT): >>ASSESSMENT AND PLAN FOR TYPE 2 DIABETES MELLITUS WITHOUT COMPLICATION WRITTEN ON 05/09/2023 2:35 PM BY TRICIA GARCIA Controlled, A1C at goal. Continue same medications in med boxes. Refills x 3 months Due for blood test on 2022 she will follow up with PCP in [facility]. Her daughter will schedule fu with me on their return. Counseled re more frequent low calorie/carb meals. Encouraged physical activity as tolerated. Assessment & Plan (07/12/2025 1:43 PM EDT): >>ASSESSMENT AND PLAN FOR TYPE 2 DIABETES MELLITUS WITHOUT COMPLICATION WRITTEN ON 03/09/2024 3:52 PM BY BOBO DUMONT MD Uncontrolled. Increase Onglyza to 5mg/d Counseled re more frequent low calorie/carb meals. Check fgstk 2x daily Encouraged physical activity as tolerated. FU in 3 months. Assessment & Plan (07/12/2025 1:43 PM EDT): >>ASSESSMENT AND PLAN FOR TYPE 2 DIABETES MELLITUS WITHOUT COMPLICATION WRITTEN ON 06/14/2024 1:57 PM BY ANGELI BLISS Controlled. A1c is at goal. Continue on Januvia 50 mg. Counseled re more frequent low calorie/carb meals. Check fgstk once daily Encouraged physical activity as tolerated. FU in 3 months. Assessment & Plan (07/12/2025 1:43 PM EDT): >>ASSESSMENT AND PLAN FOR TYPE 2 DIABETES MELLITUS WITHOUT COMPLICATION WRITTEN ON 09/17/2024 9:23 AM BY BOBO DUMONT MD Its most likely controlled. Will check A1c at next OV Continue on Januvia 50 mg. Counseled re more frequent low calorie/carb meals. Check fgstk once daily Encouraged physical activity as tolerated. FU in 3 months. Assessment & Plan (07/12/2025 1:43 PM EDT): >>ASSESSMENT AND PLAN FOR TYPE 2 DIABETES MELLITUS WITHOUT COMPLICATION WRITTEN ON 01/23/2025 6:41 PM BY BOBO DUMONT MD Controlled, A1c is at goal. Continue on Januvia 50 mg. Counseled re more frequent low calorie/carb meals. Check fgstk once daily Encouraged physical activity as tolerated. FU in 3 months. Resolved Problems Problem Noted Date Diagnosed Date Resolved Date Arthritis of left shoulder region 11/24/2022 09/14/2024 Assessment & Plan (11/24/2022 10:59 AM EST): Gave information to do home exercises. Pt has declinied steroid injection by orthopedics. She has not attended PT appointments yet. Stomach problems 08/31/2022 08/31/2022 Shoulder pain 02/06/2019 09/14/2024 Encounters Date Type Department Care Team Description 07/30/2025 Refill [facility] [address] [facility] [place] [address] Bobo Dumont MD 07/25/2025 Refill [facility] [address] [place] [address] Jaida Mckay DO 07/15/2025 Telephone [facility] [address] [facility] [place] [address] Bobo Dumont MD Appointment Request 07/15/2025 Refill [facility] [address] [place] [address] Jaida Mckay DO 07/12/2025 12:00 PM EDT Office Visit [facility] [address] [facility] [place] [address] Bobo Dumont MD Type 2 diabetes mellitus without complication, without long-term current use of insulin (HCC) (Primary Dx); Lumbar radiculopathy, chronic; Spinal stenosis of lumbosacral region; Screening mammogram for breast cancer; Class 1 obesity due to excess calories with serious comorbidity and body mass index (BMI) of 30.0 to 30.9 in adult; Mixed hyperlipidemia; Tendinitis of left rotator cuff; Dietary counseling; Exercise counseling; Encounter for immunization 07/12/2025 Travel 07/11/[address] [address] Bobo Dumont MD Chart Prep 07/05/2025 Results Follow-Up [address] [address] Bobo Dumont MD XR Lumbar Spine Complete 4+ Views 06/21/2025 11:30 AM EDT Office Visit [address] [address] Jaida Mckay DO Acute bilateral low back pain with right-sided sciatica (Primary Dx) 06/21/2025 Travel 06/21/[address] [address] Bobo Dumont MD Nurse Triage 06/20/2025 1:30 PM EDT Office Visit [facility] ADULT DENTAL [address] [place] [phone] Richard Bautista, KARINA 06/20/2025 Travel 06/18/[address] [address] Bobo Dumont MD Appointment Request 06/10/[address] [address] Bobo Dumont MD Chronic left shoulder pain 06/06/[address] [phone] Bobo Dumont MD R/S appt PCP OUT 05/17/2025 1:30 PM EDT Office Visit [facility] [address] [place] [address] Tyrone Miller DDS Periodontal disease (Primary Dx) 05/07/[address] [address] Bobo Dumont MD 05/02/2025 Refill [facility] [address] [facility] [place] [address] Jaida Mckay DO 04/30/2025 Refill [facility] [address] [facility] [place] [phone] Bobo Dumont MD Essential hypertension from Last 3 Months Immunizations Immunization Administration Dates Next Due Influenza Injectable Quadriv alant Preservative Free IIV4 MDCK 07/22/2022,09/08/2020 Influenza injectable quadriv alent IIV4 with preservative 06/27/2019,09/29/2017 Influenza injectable quadrivalent preservative f ree 10/13/2018 Influenza, seasonal, injectable, preservative fr ee 07/12/2025 Moderna Covid-19 Vaccine 12+ 04/14/2021,03/18/20 21 Tdap [...] Sign Reading Time Taken Comments Blood Pressure 130/85 07/12/2025 12:10 PM EDT Pulse 71 07/12/2025 12:10 PM EDT Temperature 36 C (96.8 F) 07/12/2025 12:10 PM EDT Respiratory Rate 16 07/12/2025 12:1 0 PM EDT Oxygen Saturation 95% 07/12/2025 12: 10 PM EDT Inhaled Oxygen Concentration - - Weight 71.1 kg (156 lb 12.8 oz) 025 12:10 PM EDT Height 152.4 cm (5') 07/12/2025 12:10 PM EDT Body Mass Index 30.62 07/12/2025 12:10 PM EDT Plan of Treatment Upcoming Encounters Date Type Department Care Team (Late st Contact Info) Description 08/23/2025 1:00 PM EST Office Visit [facility] [address] [place] [address] Pradeep Scott MD [address] [place] [address] Health Maintenance Due Date Last Done Comments CT Colonography 1965 FIT DNA/Cologuard 1965 FIT 1965 FOBT 1965 HIV Screening 1965 Sigmoidoscopy 1965 Disability Screening 1965 Pneumococcal Vaccine: 50+ Years (1 of 2 - PCV) 1983 Pap Smear 1985 Zoster Vaccines (2 of 3) 07/24/2019 05/29/2019 Mammogram 08/01/2022 08/01/2020, 10/11, 11/07/2018, Additional history exists Cervical Cancer Screening 11/23/2022 HPV/Cotest 11/23/2022 11/23/2017 RSV Patients and Patients Aged 60 years or older (1 - Risk 60-74 years 1-dose series) 2024 Dental Oral Exam 01/18/2025 07/19/2024 COVID-19 Vaccine ( season) 2025 04/14/2021, 03/18/2021 Lipid Panel 06/14/2025 06/14/2024, 07/11, 03/18/2021, Additional history exists Dental X-Ray: Bitewings 07/20/2025 07/19/2024 Dental Prophylaxis 08/07/2025 02/04/2025, 08/03/2024 Depression Monitoring 01/10/2026 07/12/2025, 025 Diabetes: Hemoglobin A1C 01/10/2026 025, 01/17/2025, 06/14/2024, Additional history exists SDOH Screening 01/17/2026 01/17/2025 Tobacco Screening 06/20/2026 06/20/2025 Alcohol/Substance Use Screening 07/12/2026 07/12/2025 Diabetes: Foot Exam 07/12/2026 07/12/2025, 07/12/2025, 07/12/2025, Additional history exists Eye Exam 01/08/2027 01/08/2025, 04/0 10/2024, 01/08/2025, Additional history exists Dental X-Ray: Full Mouth 07/20/2027 07/19/2024 Colonoscopy 11/05/2027 11/05/2022 Colorectal Cancer Screening 11/05/2027 DTaP/Tdap/Td Vaccines (2 - Td or Tdap) 05/29/2029 05/29/2019 Hepatitis C Screening Completed 01/17/2025 Influenza Vaccine Completed 07/12/2025, , 09/08/2020, Additional history exists HIB Vaccines Aged Out No longer eligi [...] Procedure Name Priority Date/Time Associated Diagnosis Comments POCT GLYCATED HEMOGLOBIN, TOTAL Routine 07/12/2025 12:21 PM EDT Type 2 diabetes mellitus without complication, without long-term current use of insulin (HCC) POCT GLUCOSE Routine 07/12/2025 12:12 PM EDT Type 2 diabetes mellitus without complication, without long-term current use of insulin (HCC) MR LUMBAR SPINE WO CONTRAST Urgent 07/09/2025 [...] (ELEVATION/FORCEPS REMOVAL) Routine 05/17/2025 1:30 PM EDT PROPHYLAXIS - ADULT Routine 02/04/2025 1 :00 PM EDT Dental calculus Dental plaque HEPATITIS PANEL, GENERAL Routine 01/17/2025 11:39 AM EDT Tendinitis of left rotator cuff Tenosynovitis of finger and hand INTRAORAL - COMPLETE SERIES OF RADIOGRAPHIC IMAGES [...] Relevant to Health Maintenance Results * (ABNORMAL) POCT Hgb A1c (07/12/2025 12:21 PM EDT) Hemoglobin A1C 6.9(A) 4.0 - 5.7 % QC Media Lot # [id number] Lot# Expiration Date Blood 07/12/2025 12:2 1 PM EDT Bobo Dumont MD POINT OF CARE TEST ENTER /EDIT ORDERABLES Final Result * POCT Glucose (07/12/2025 12:12 PM EDT) Glucose Blood, POC 128 60 - 200 mg/dL QC Media Lot # [id number] Lot# Expiration Date 726 Blood Capillary blood specimen / Unknown 07/12/2025 12:12 PM EDT Bobo Dumont MD POINT OF CARE TEST ENTER /EDIT ORDERABLES Final Result * MR Lumbar Spine w/o Contrast (07/09/2025 3:34 PM EDT) Anatomical Region Laterality Modality Spine, L-spine Magnetic Resonan ce 07/09/2025 3:34 PM EDT Narrative 07/09/2025 4:14 PM EDT [address] [address] Magnetic Resonance Report Signed Patient: Lorena Zamudio MR#: [id number] : 1965 Acct:[id number] Age/Sex: 59 / F ADM Date: 07/09/25 Loc: HO.MRI Attending Dr: Jaida Mckay DO Ordering Physician: Jaida Mckay DO Date of Service: 07/09/25 Procedure(s): MR lumbar spine wo con Accession Number(s): [id number] cc: Bobo Dumont MD; Jaida Mckay DO Reason for Exam: [...] 07/09/25 1611 DD/ 1534 TD/TT: 07/09/25 1549 Sql Programmer Analyst: Procedure Note Donotuseinterpreter, Image - 07/09/2025 [place] [address] Magnetic Resonance Report Signed Patient: Lorena ZamudioMR#: [id number] : 1965Acct:[id number] Age/Sex: 59 / FADM Date: 07/09/25 Loc: HO.MRI Attending Dr: Jaida Mckay DO Ordering Physician: Jaida Mckay DO Date of Service: 07/09/25 Procedure(s): MR lumbar spine wo con Accession Number(s): [id number] cc: Bobo Dumont MD; Jaida Mckay DO Reason for Exam: [...] 07/09/25 1611 DD/ 1534 TD/TT: 07/09/25 1549 Sql Programmer Analyst: Jaida Mckay DO IMG MRI PROCEDURES Final Res ult * XR Lumbar Spine Complete 4+ Views (06/21/2025 2:18 PM EDT) Anatomical Region Laterality Modality Spine, L-spine Radiographic Lisa ging 06/21/2025 2:18 PM EDT Narrative 06/21/2025 2:30 PM EDT [address] [address] XRay Report Signed Patient: Lorena Zamudio MR#: [id number] : 1965 Acct:[id number] Age/Sex: 59 / F ADM Date: 06/21/25 Loc: HO.HHCX Attending Dr: Jaida Mckay DO Ordering Physician: Jaida Mckay DO Date of Service: 06/21/25 Procedure(s): XR lumbar spine 4V min Accession Number(s): [id number] cc: Bobo Dumont MD; Jaida Mckay DO Reason for Exam: [...] 06/21/25 1427 DD/ 1418 TD/TT: 06/21/25 1421 Sql Programmer Analyst: Procedure Note Donoterikainterpreter, Image - 06/21/[address] [address] XRay Report Signed Patient: Lorena ZamudioMR#: [id number] : 1965Acct:[id number] Age/Sex: 59 / FADM Date: 06/21/25 Loc: HO.CX Attending Dr: Jaida Mckay DO Ordering Physician: Jaida Mckay DO Date of Service: 06/21/25 Procedure(s): XR lumbar spine 4V min Accession Number(s): [id number] cc: Bobo Dumont MD; Jaida Mckay DO Reason for Exam: [...] 06/21/25 1427 DD/ 1418 TD/TT: 06/21/25 1421 Sql Programmer Analyst: Jaida Mckay DO IMG XR PROCEDURES Final Resu lt * Hepatitis Panel, General (01/17/2025 11:39 AM EDT) Hepatitis A IgM Nonreactive Nonreactive [facility] Comment:IgM antibodies to LYNCH V not detected; does not exclude earlyacute or recovered HAV infection. ~Hepatitis B Surface Antibody NONREACTIVE Nonreactive [facility] Comment:Nonreactive: < 8.00 mIU/mL Hepatitis B Core Antibody Nonreactive Nonreactive [facility] Hepatitis C Antibody Nonreactive Nonreactive [facility] Comment:Antibodies to HCV no t detected; does not exclude early acuteHCV infection. Hepatitis B Surface Ag Negative Negative [facility] Blood 01/17/2025 11:3 9 AM EDT 01/17/2025 1:33 PM EDT us Bobo Dumont MD LAB BLOOD ORDERABLES Fin al Result [facility] [address] [place] [address] [phone] * Lipid Panel with Reflex to Direct LDL (06/14/2024 1:37 PM EDT) Triglycerides 106 <150 mg/dL [facility] Comment:Desirable Triglyceri de: less than 150 mg/dLBorderline High Triglyceride 150-199 mg/dLHigh Triglyceride: 200-499 mg/dLVery High Triglyceride: greater than or equal to 5OO mg/dL Cholesterol 137 <200 mg/dL [facility] Comment:Desirable Cholestero l: less than 200 mg/dLBorderline High Cholesterol: 200-239 mg/dLHigh Cholesterol: greater than 239 mg/dL LDL Cholesterol Calculated 75 <100 mg/dL [facility] Comment:Desirable LDL: less than 100 mg/dLNear Optimal/Above Optimal LDL: 110- 129 mg/dLBorderline High LDL: 130-159 mg/dLHigh LDL: 160-189 mg/dLVery High LDL: greater than or equal to 190 mg/dL HDL Cholesterol 41 >40 mg/dL [facility] Comment:Desirable HDL: great er than 40 mg/dL Note: This HDL assay may give artificially low results in patients with liver disease. Blood 06/14/2024 1:37 PM EDT 06/14/2024 4:32 PM EDT Bobo Dumont MD LAB BLOOD ORDERABLES Fin al Result [facility] [address] [place] [phone] * (ABNORMAL) Hm Colonoscopy (11/05/2022) Colonoscopy Abnormal( A) Normal [facility] Comment:adenomatous polyps a nd Diverticulosis 11/05/2022 Bobo Dumont MD HEALTH MAINTENANCE Final Result Performing Organization Address City/[facility]/ZIP Co de Phone Number [facility] [address] [place] [phone] * Mammography Report 1 (08/01/2020 12:16 PM EDT) Anatomical Region Laterality Modality Breast Bilateral Mammography 08/01/2020 12:1 6 PM EDT Narrative 03/24/2021 10:12 AM EDT Refer to the Notes tab for result details [facility] Procedure: Mammography Report 1 Procedure Note Provider, MD Ravinder - 01/01/2023 Refer to the Notes tab for result details [facility] Procedure: Mammography Report 1 Bobo Dumont MD IMG BI PROCEDURES Final Result * HPV mRNA E6/E7 (11/23/2017 10:06 AM EST) HPV mRNA E6/E7 Not Detected NOT DETECTED [facility] [employer] Comment: This test was performed using the APTIMA(R) HPV Assay ([employer] This assay detects E6/E7 viral messenger RNA (mRNA) from 14 high-risk HPV types (16,18,31,33,35,39,45,51, 52,56,58,59,66,68). For additional information please refer to: http://education.[employer]/faq/MWT198s9 (This link is being provided for informational/ educational purposes only.) Test Performed by [employer], [employer] [address] [place], [address] [place] [address] Narciso Diallo M.D., Ph.D., Director of Laboratories , [facility] [id number] Please note: Effective 06/21/2016, HPV testing will be performed using [employer] APTIMA test which targets mRNA. Detecting mRNA instead of DNA, as in older methods, offers significant improvements in specificity. 11/23/2017 10:0 6 AM EST us Farhana Buenrostro CNM HISTORICAL/NON ORDERABLE LABS Final Result [facility] [address] from Last 3 Months or Most Recently Relevant to Health Maintenance Insurance [facility] [address] Care Teams Esters And Emulsifiers Supervisor Relationship Specialty Start Date End Date Bobo Dumont MD [address] [place] [phone] PCP - General Family Medicine 09/27/17
--- OUTSIDE RECORDS SUMMARY | 2025-07-30 19:05 | XMS_ITS | Encounter Summary ---
Author Organization [employer] Address [address] [facility] 7t [place] [address] Care Team Providers Care Senior Windows Administrator Name Role Phone Twyla Cedeño MD Primary Care Provider + Encounter Details Date Type Department Care Team (Latest Contact Info) Description 06/02/2022 Abstract [facility] CONVERSIONS Dental, Provider, DDS Social History [...] Description 08/23/2025 1:00 PM EST Office Visit [facility] MEDICINE [address] [place] [address] Pradeep Scott MD [address] [place] [phone] documented as of this encounter Visit Diagnoses Not on filedocumented in this encounter Care Teams Senior Windows Administrator Relationship Specialty Start Date End Date Twyla Cedeño MD [address] [place] [phone] PCP - General Family Medicine 09/27/17 documented as of this encounter
--- OUTSIDE RECORDS SUMMARY | 2025-07-30 19:05 | XMS_ITS | Encounter Summary ---
Author Organization [employer] Address [address] [facility] [address] 7t [place] [address] Care Team Providers Care Guest Services Name Role Phone Twyla Cedeño MD Primary Care Provider + Encounter Details Date Type Department Care Team (Late st Contact Info) Description 07/05/2025 Results Follow-Up [facility] MEDICINE 230 [place], [place] [phone] Twyla Cedeño MD 230 [place] [address] XR Lumbar Spine Complete 4+ Views Social [...] t he electric, gas, oil or water [employer] threatened to shut off services in your [...] 08/23/2025 1:00 PM EST Office Visit [facility] MEDICINE [address] [place] [phone] MaryRamPradeep atkins MD 230 [place] [address] documented as of this encounter Visit Diagnoses Not on filedocumented in this encounter Care Teams Guest Services Relationship Specialty Start Date End Date Twyla Cedeño MD [address] [place] [phone] PCP - General Family Medicine 09/27/17 documented as of this encounter
--- OUTSIDE RECORDS SUMMARY | 2025-07-30 19:05 | XMS_ITS | Encounter Summary ---
Author Organization [employer] Address 75 [facility] 7t [place] [address] Care Team Providers Care Olive Grower Name Role Phone Twyla Cedeño MD Primary Care Provider + Encounter Details Date Type Department Care Team (Latest Contact Info) Description 11/03/2018 Abstract [facility] CONVERSIONS Dental, Provider, DDS Social History Tobacco [...] Description 08/23/2025 1:00 PM EST Office Visit [facility] MEDICINE 230 [place] [address] Pradeep Scott MD 230 [place] [address] documented as of this encounter Visit Diagnoses Not on filedocumented in this encounter Care Teams Olive Grower Relationship Specialty Start Date End Date Twyla Cedeño MD 230 [place], [place] [phone] PCP - General Family Medicine 09/27/17 documented as of this encounter
--- OUTSIDE RECORDS SUMMARY | 2025-07-30 19:05 | XMS_ITS | Encounter Summary ---
Author Organization [employer] Address 75 [facility] 7t [place] [address] Care Team Providers Care Rail Signal Mechanic Name Role Phone Twyla Cedeño MD Primary Care Provider + Reason for Visit * Reason Comments Med Refill Encounter Details Date Type Department Care Team ([facility] st Contact Info) Description 07/25/2025 Refill [facility] MEDICINE [address] [place], [place] [phone] Jaida Mckay, 230 [place], [place] [phone] Social History Tobacco Use Types Packs/Day Years [...] 1:00 PM EST Office Visit [facility] MEDICINE [address] [place] [address] Pradeep Scott MD [address] [place] [address] documented as of this encounter Visit Diagnoses Not on filedocumented in this encounter Additional Health Concerns Assessment Noted Time PHQ-9 Depression Total Score: 12 025 2:53 PM EDT documented as of this encounter Care Teams Rail Signal Mechanic Relationship Specialty Start Date End Date Twyla Cedeño MD [address] [place] [address] PCP - General Family Medicine 09/27/17 documented as of this encounter
--- OUTSIDE RECORDS SUMMARY | 2025-07-30 19:05 | XMS_ITS | Clinical Summary ---
Author Organization [facility] Address [address] [place] [phone] Phone Care Team Providers Care Combination Machine Tool Setter Name Role Phone Twyla Cedeño MD Primary [...] VACCINE (#1) 2025 COVID-19 VACCINE ( - 2024-2 6 season) 2025 LIPID PANEL 08/05/2027 08/05/2022 Adult [...] topic Medical Devices Not on file Insurance [facility] C3 ACO C3 ACO C3 ACO C3 ACO C3 ACO C3 ACO C3 ACO Care Teams Combination Machine Tool Setter Relationship Specialty Start Date End Date Twyla Cedeño MD [address] [place] [address] [phone] [place] [phone] PCP - General Internal Medicine 04/26/22 Additional Source Comments The information contained in this document represents components of the legal health record. It is not the complete legal health record.[facility]
--- OUTSIDE RECORDS SUMMARY | 2025-07-30 19:05 | XMS_ITS | Encounter Summary ---
Author Organization [employer] Address 75 [facility] 7t [place] [address] Care Team Providers Care Hoist Mechanic Name Role Phone Twyla Cedeño MD Primary Care Provider + Reason for Visit * Reason Onset Date Comments Appointment Request 07/15/2025 Encounter Details Date Type Department Care Team ([facility] Contact Info) Description 07/15/2025 Telephone [facility] MEDICINE 230 [place], [place] [phone] Twyla Cedeño MD 230 [place], [place] [phone] Appointment Request Social History Tobacco Use Types [...] encounter Miscellaneous Notes * Telephone Encounter - Saurav Carroll - 07/15/2025 11:51 AM EDT Tc from daughter requesting a call back to reschedule derm appointment. Please contact daughter at [phone]. documented in this encounter Plan of Treatment Upcoming Encounters Date Type Department Care Team (Late st Contact Info) Description 08/23/2025 1:00 PM EST Office Visit [facility] MEDICINE [address] [place] [phone] Pradeep Scott MD [address] [place] [address] documented as of this encounter Visit Diagnoses Not on filedocumented in this encounter Additional Health Concerns Assessment Noted Time PHQ-9 Depression Total Score: 12 025 2:53 PM EDT documented as of this encounter Care Teams Hoist Mechanic Relationship Specialty Start Date End Date Twyla Cedeño MD [address] [place] [address] PCP - General Family Medicine 09/27/17 documented as of this encounter
--- OUTSIDE RECORDS SUMMARY | 2025-07-30 19:05 | XMS_ITS | Encounter Summary ---
Author Organization [employer] Address [address] [facility] [address] 7t [place] [address] Care Team Providers Care Corporate Consultant Name Role Phone Twyla Cedeño MD Primary Care Provider + Reason for Visit * Reason Comments Med Refill Encounter Details Date Type Department Care Team (Late st Contact Info) Description 04/30/2024 Refill [facility] MED & PEDS [address] [place], [place] [phone] Janny Wheatley MD 230 [place] [address] Social History Tobacco Use Types Packs/Day Years [...] 08/23/2025 1:00 PM EST Office Visit [facility] MEDICINE 230 [place], [place] [phone] Pradeep Scott MD [address] [place] [address] documented as of this encounter Visit Diagnoses Not on filedocumented in this encounter Care Teams Corporate Consultant Relationship Specialty Start Date End Date Twyla Cedeño MD [address] [place] [address] PCP - General Family Medicine 09/27/17 documented as of this encounter
--- OUTSIDE RECORDS SUMMARY | 2025-07-30 19:05 | XMS_ITS | Encounter Summary ---
Author Organization [employer] Address 75 [facility] 7t [place] [address] Care Team Providers Care Paving Supervisor Name Role Phone Twyla Cedeño MD Primary Care Provider + Reason for Visit * Reason Comments Med Refill Encounter Details Date Type Department Care Team ([facility] st Contact Info) Description 05/30/2024 Refill [facility] DIABETES/NUTRITION 230 [place], [place] [phone] Twyla Cedeño MD [address] [place] [address] Tinea corporis Social History Tobacco Use Types [...] Description 08/23/2025 1:00 PM EST Office Visit [facility] MEDICINE [address] [place] [phone] Pradeep Scott MD [address] [place] [phone] documented as of this encounter Visit Diagnoses Diagnosis Tinea corporis Dermatophytosis of the body documented in this encounter Care Teams Paving Supervisor Relationship Specialty Start Date End Date Twyla Cedeño MD [address] [place] [address] PCP - General Family Medicine 09/27/17 documented as of this encounter
--- OUTSIDE RECORDS SUMMARY | 2025-07-30 19:05 | XMS_ITS | Encounter Summary ---
Author Organization [employer] Address [address] [place] [address] 7t [place] [address] Care Team Providers Care Ballet Soloist Name Role Phone Twyla Cedeño MD Primary Care Provider + Reason for Visit * Reason Comments Med Refill Encounter Details Date Type Department Care Team (Late st Contact Info) Description 06/23/2023 Refill [facility] MED & PEDS [address] [place], [place] [phone] Carmel Dang MD 230 [place], [place] [phone] Rosacea Social History Tobacco Use Types Packs/Day [...] 1:00 PM EST Office Visit [facility] MEDICINE 230 [place], [place] [phone] Pradeep Scott MD 230 [place], [place] [phone] documented as of this encounter Visit Diagnoses Diagnosis Rosacea documented in this encounter Care Teams Ballet Soloist Relationship Specialty Start Date End Date Twyla Cedeño MD [address] [place] [phone] PCP - General Family Medicine 09/27/17 documented as of this encounter
--- OUTSIDE RECORDS SUMMARY | 2025-07-30 19:05 | XMS_ITS | Encounter Summary ---
Author Organization [employer] Address 75 [facility] 7t [place] [address] Care Team Providers Care Wine Fermenter Name Role Phone Twyla Cedeño MD Primary Care Provider + Reason for Visit * Reason Comments Med Refill Encounter Details Date Type Department Care Team (Late st Contact Info) Description 04/09/2024 Refill [facility] MEDICINE 230 [place], [place] [phone] Twyla Cedeño MD 230 [place], [place] [phone] Type 2 diabetes mellitus without complication, without long-term current use of insulin ([facility] Social History Tobacco Use Types Packs/Day Years [...] Description 08/23/2025 1:00 PM EST Office Visit [facility] MEDICINE [address] [place] [phone] Pradeep Scott MD [address] [place] [address] [phone] documented as of this encounter Visit Diagnoses Diagnosis Type 2 diabetes mellitus without complication, without long-term current use of insulin (HCC) documented in this encounter Care Teams Wine Fermenter Relationship Specialty Start Date End Date Twyla Cedeño MD [address] [place] [address] [phone] PCP - General Family Medicine 09/27/17 documented as of this encounter
== END 2025-07-30 14:11 | disposition home or self-care (01) ==
LOC: HO.MAMMO 14:10
PROVIDERS: PCP Internal Medicine; Visit Provider Internal Medicine
DX: Z12.31 Encounter for screening mammogram for malignant neoplasm of breast (principal)
CPT/HCPCS: 77063; 77067

== ENCOUNTER → 2025-07-30 14:15 | Outpatient (BNV) | payer MEDICAID, SELFPAY | PROVIDERS: PCP Internal Medicine; Visit Provider Internal Medicine | DX: Z12.31 Encounter for screening mammogram for malignant neoplasm of breast (principal) | CPT/HCPCS: 77063; 77067 ==

== ENCOUNTER 2025-09-14 13:25 | Emergency (ER) | payer MEDICAID, SELFPAY ==
--- NOTE | ~2025-09-14 | XR_ITS ---
CLINICAL HISTORY: fall 1 view pelvis Comparison: None provided Findings: No acute fracture or dislocation. Mild degenerative changes in the bilateral hips. Soft tissues are unremarkable. IMPRESSION: No acute fracture or dislocation. This document has been electronically signed by: Shaye Duarte DO on 09/14/2025 17:42:45
--- NOTE | ~2025-09-14 | XR_ITS ---
CLINICAL HISTORY: fall mid back pain 3 views lumbar spine Comparison: CR/SR - XR LUMBAR SPINE 4 OR MORE VIEWS - 06/21/25 14:01 EDT Findings: Bilateral L5 pars defects. Stable minimal grade 1 spondylolisthesis at L5-S1. No scoliosis. No significant vertebral body compression deformity in the lumbar spine. [id number] multilevel disc space narrowing with multilevel endplate osteophytes. Most prominent findings at L5-S1. Moderate multilevel facet degenerative changes. IMPRESSION: No acute fracture in the lumbar spine. This document has been electronically signed by: Shaye Duarte DO on 09/14/2025 15:59:53
--- NOTE | ~2025-09-14 | XR_ITS ---
CLINICAL HISTORY: fall mid back pain 3 views thoracic spine Comparison: CR/SR - XR LUMBAR SPINE 4 OR MORE VIEWS - 06/21/25 14:01 EDT Findings: Normal vertebral body alignment. Mild chronic T12 compression fracture. Vertebral body heights in the remaining thoracic spine are well-maintained. No acute fracture or dislocation. Joys-bs-rvywdwlr multilevel disc space narrowing. Large endplate osteophytes at T9-10 and T10-11. IMPRESSION: No acute fracture in the thoracic spine. This document has been electronically signed by: Shaye Duarte DO on 09/14/2025 16:09:27
--- NOTE | ~2025-09-14 | XR_ITS ---
CLINICAL HISTORY: fall 4 views sacrum and coccyx Comparison: None provided Findings No acute fractures. Degenerative changes in the bilateral sacroiliac joints, right greater than left. Please see the separate report for the lumbar spine radiographs. IMPRESSION: No acute fracture. This document has been electronically signed by: Shaye Duarte DO on 09/14/2025 17:39:52
--- NOTE | 2025-09-14 13:29 | ED_ITS ---
HPI - Fall General Chief Complaint: Fall Stated Complaint: fall Time Seen by Provider: 09/14/25 15:41 Source: patient, family, RN notes reviewed and old records reviewed Mode of arrival: ambulatory History of Present Illness ED Provider: Ebony Dangelo PA-C HPI Narrative: 59-year-old female with a past medical history of diabetes, HTN, HLD, presenting to the ED complaining of low back/pelvic pain radiating down RLE x2 days s/p mechanical trip and fall over a wire. Denies symptoms prior to fall including lightheadedness/dizziness. Denies head trauma or LOC. Denies anticoagulation use. Has been taking baclofen, naproxen, and gabapentin with some relief. Denies incontinence/retention, numbness, tingling, weakness Related Data Home Medications ?Medication ?Instructions ?Recorded ?Confirmed acetaminophen 650 mg 650 mg PO Q8H 06/10/2202/13 tablet,extended release blood sugar diagnostic (FreeStyle #10 ea 06/18/2205/03 Lite Strips) clotrimazole 1 % topical cream appl topical 06/18/22 0 02/13/25 lancets 33 gauge (TRUEplus Lancets) #100 ea 06/18/22 0 02/13/25 loratadine 10 mg tablet 10 mg PO DAILY 06/18/2205/03 metronidazole 0.75 % topical gel topical 06/18/2205/03 calcium 500 mg (as 1 tab PO 11/19/22 02/13/25 carbonate)-vitamin D3 5 mcg (200 unit) tablet (Oyster Shell Calcium-Vitamin D3) famotidine 40 mg tablet 40 mg PO BEDTIME PRN abdomin al pain 11/19/22 02/13/25 saxagliptin 2.5 mg tablet 2.5 mg PO DAILY 02/14/2405/03 Previous Rx's ?Medication ?Instructions ?Recorded atorvastatin 20 mg tablet 20 mg PO BEDTIME 90 days #90 tabs 07/17/20 Held on 02/13/25. Instructions: Doctor's Order diclofenac sodium 1 % topical gel 4 g topical QID #100 grams 12/21/22 lisinopril 5 mg tablet 5 mg PO DAILY #90 tabs 03/09 metoprolol succinate 25 mg 25 mg PO DAILY 90 days #90 tabs 03/09/23 tablet,extended release 24 hr acetaminophen 500 mg tablet 500 mg PO Q6H PRN fever or pain 09/14/25 (Tylenol Extra Strength) #14 tabs lidocaine 5 % topical patch 1 patch topical DAILY PRN pain #30 09/14/25 (Lidoderm) ea naproxen 500 mg tablet 500 mg PO BID PRN pain 10 da ys #20 09/14/25 tabs oxycodone 5 mg tablet 5 mg PO Q6H PRN pain (scale score 09/14/25 7-10) 3 days #3 tabs Allergies Allergy/AdvReac Type Severity Reaction Status Date / Time gelatin Allergy Unknown Verified 09/14/25 13:32 melon Allergy Unknown Verified 09/14/25 13:32 Review of Systems Review of Systems: Yes all other systems are reviewed and are negative Constitutional: Constitutional: Reports as per HPI Neurologic: Denies Sensory deficit (Neuro) [facility] Past Medical History Attestation statement: The following information was validated with the patient. 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 Physical Exam Vital Signs: Vital Signs: Last Vital Signs Temp 98 F 09/14/25 18:27 Pulse 84 09/14/25 18:27 Resp 17 09/14/25 18:44 BP 152/72 H 09/14/25 18:27 Pulse Ox 97 09/14/25 18:27 O2 Del Method Room Air 09/14/25 18:44 BMI result Body Mass Index 27.9 Const: General: cooperative, healthy appearing and no acute distress Orientation/consciousness: patient oriented x3 Limitations: no limitations HEENT: Head: Yes normal to inspection and Yes atraumatic Ears: hearing grossly normal bilaterally General nose exam: Normal external nose present Face and sinus: Yes normal facial exam Eyes: General: appearance normal, both eyes and all related structures EOM: EOMs intact bilaterally Neck: Neck: Yes normal visual inspection and Yes no meningeal signs Resp: Effort & Inspection: normal respiratory effort and no respiratory distress Cardio: Rate: regular rate GI: Inspection: Yes normal to inspection Palpation (GI): Soft to palpation, nontender, no guarding and not rigid : General: Yes no CVA tenderness Back/Spine/Pelvis: Other: + midline thoracic spinous tenderness no heather. + bilateral thoracic and lumbar MSK reproducible tenderness. No rash or erythema + coccygeal tenderness No midline cervical/lumbar spinous tenderness/step-off or deformity Back: no CVA tenderness Skin: Rashes: no rashes Wounds: no wounds Neuro: Other: Strength intact throughout. No saddle anesthesia. Sensation intact to light touch. Neurovascular intact distally General: patient oriented x3, gait normal, tone normal, moves all extremities, no meningeal signs and no focal motor deficits Cranial nerves: Yes CN's II-XII intact bilaterally Gait exam (Neuro): Normal gait present Motor exam (neuro): 5/5 motor strength present throughout Sensory Exam: No Sensory deficit (Neuro) Extrem: Other: Pelvis stable. General: Yes normal to inspection Course Course Course Narrative: This is a Rapid Medical Examination (RME) performed by Yury Trejo PA-C in [facility]. Full HPI, ROS, assessment and treatment plan per primary provider in the Main ED. Hx: 59 yo F hx DM, HLD, HTN here for eval s/p mechanical trip and fall over cord 2 days ago. reports landing on her buttocks/back. no head strike or LOC. no thinners. reports continued mid back pain, hx of chronic back pain. no bowel/bladder incontinence or retention, saddle anesthesia, urinary sx. no headache, dizziness, neck pain. PE/vitals: ambulating with steady gait Plan: imaging Had lumbar MRI in 06/2025: MR lumbar spine wo con IMPRESSION: L2-L3: There is minimal spinal stenosis. L3-L4: There is mild spinal stenosis and minimal subarticular zone narrowing. L5-S1: There is grade 1 anterolisthesis related to chronic bilateral pars interarticular is defects contributing to severe right and moderate left foraminal narrowing with likely encroachment of the right L5 nerve root. 6:21 PM 09/14/2025 (Ebony Dangelo PA-C): X-rays unremarkable. Patient reports sy mptomatic improvement after medications given in the ED. Feels comfortable for discharge home at this time Results discussed with patient including worrisome signs and symptoms and strict return precautions, and when to return to the emergency department. They verbalized understanding and feel safe for discharge at this time. Medications Administered Discontinued Medications Generic Name Dose Route Start Last Admin Trade Name Mayra PRN Reason Stop Dose Admin Cyclobenzaprine HCl 10 mg 09/14/25 15:54 09/14/25 16:20 Cyclobenzaprine Hcl 10 Mg Tablet PO 09/14/25 15:55 10 mg ONCE ONE Administration Ketorolac Tromethamine 30 mg 09/14/25 15:54 09/14/25 16:20 Ketorolac Tromethamine 30 Mg/Ml Vial IM 09/14/25 15:55 30 mg ONCE ONE Administration Medical Decision Making Medical Decision Making MDM Narrative: 59-year-old female with a past medical history of diabetes, HTN, HLD, presenting to the ED complaining of low back/pelvic pain radiating down RLE x2 days s/p mechanical trip and fall over a wire. On exam vital signs stable, NAD, nontoxic appearing, physical exam as noted above with thoracic midline tenderness and reproducible MSK/paraspinal tenderness. Pelvis stable. No red flag symptoms. Concern for fracture vs MSK pain/strain vs sciatica. Low suspicion for cauda equina, cord compression, epidural abscess Plan: X-rays, pain control Please refer to course for remaining clinical decision making, interpretation of labs/imaging results, and discussions with consultants and/or family members. Differential Diagnosis Differential Diagnoses: The differential diagnosis associated with the presentation includes As above Independent Interpretation I performed an independent interpretation of an: Plain X-Ray Radiology Impression Discussion of test interpretation with radiology: I have reviewed the radiologist's reading. Independent Historian Clinical information obtained from an independent historian. History obtained from or confirmed by: Other External Record Review External record reviewed: Inpatient record, Office record, Outpatient record, Prior outpatient labs, Prior outpatient radiology, Primary care record and Outside ED record Tests considered The following testing was considered but not selected: As above Prescription Management I considered prescription management with: Pain Medication Chronic Conditions Patient?s care impacted by: Other Social Determinants Patient?s care significantly limited by Social Determinants of Health including: Other Social Determinant of Health Discharge Plan Discharge Clinical Impression: Low back pain Patient Disposition: Home, Self-Care Instructions: Acute Low Back Pain (ED) Additional Instructions: Your x-rays do not show any acute findings. No fractures/broken bones Your pain is likely musculoskeletal Continue taking previously prescribed baclofen and gabapentin Naproxen as an anti-inflammatory / pain medication, take with food Lidoderm patches are numbing patches, apply to painful area In addition take Tylenol at home Oxycodone as an opiate pain medication, take only when pain is severe for the next 3 days If symptoms persist or worsen, pain becomes unbearable, you developed urinary retention or incontinence, or weakness return to the ED Prescriptions: New acetaminophen [Tylenol Extra Strength] 500 mg tablet 500 mg PO Q6H PRN (Reason: fever or pain) Qty: 14 0RF lidocaine [Lidoderm] 5 % adhesive patch,medicated 1 patch topical DAILY MDD remove after 12 hours PRN (Reason: pain) Qty: 30 0RF Rx Instructions: leave on most painful area for up to 12 hrs naproxen 500 mg tablet 500 mg PO BID PRN (Reason: pain) 10 Days Qty: 20 0RF oxycodone 5 mg tablet 5 mg PO Q6H PRN (Reason: pain (scale score 7-10)) 3 Days Qty: 3 0RF Rx Instructions: Partial Fill upon patient request. No Action atorvastatin 20 mg tablet 20 mg PO BEDTIME 90 Days Qty: 90 4RF diclofenac sodium 1 % gel 4 g topical QID Qty: 100 3RF acetaminophen 650 mg tablet extended release 650 mg PO Q8H calcium carbonate-vitamin D3 [Oyster Shell Calcium-Vit D3] 500 mg-5 mcg (200 unit) tablet 1 tab PO famotidine 40 mg tablet 40 mg PO BEDTIME PRN (Reason: abdominal pain) (DME) lancets [TRUEplus Lancets] 33 gauge misc See Rx Instructions .ROUTE TID Qty: 100 Rx Instructions: As directed (DME) FreeStyle Lite Strips Strip See Rx Instructions .ROUTE .MEDSUPPLY Qty: 10 Rx Instructions: As directed loratadine 10 mg tablet 10 mg PO DAILY clotrimazole 1 % cream topical metronidazole 0.75 % gel topical lisinopril 5 mg tablet 5 mg PO DAILY Qty: 90 3RF metoprolol succinate 25 mg tablet extended release 24 hr 25 mg PO DAILY 90 Days Qty: 90 4RF saxagliptin 2.5 mg tablet 2.5 mg PO DAILY Referrals: Twyla Cedeño MD [Primary Care Provider, Internal Medicine] - 5 days Interventions: ED Discharge Assessment Last Done: 09/14/25 18:27 Discharge Date/Time: 09/14/25 18:57 Print Language: Yi
[2025-09-14 13:30] VITALS: BP 152/72; PULSE 84; RESP 18; TEMP 36.6; O2SAT 97; BMI 27.9
--- OUTSIDE RECORDS SUMMARY | 2025-09-14 16:40 | XMS_ITS | Encounter Summary ---
Author Organization [employer] Address [address] [place] [address] 7t [place] [address] Care Team Providers Care Chucking Machine Set Up Operator Name Role Phone Twyla Cedeño MD Primary Care Provider + Reason for Visit * Reason Comments Med Refill Encounter Details Date Type Department Care Team (Late st Contact Info) Description 06/15/2023 Refill [facility] MEDICINE 230 [place], [place] [phone] Twyla Cedeño MD 230 [place], [place] [phone] Social History Tobacco Use Types Packs/Day Years [...] as of this encounter Plan of Treatment Not on file documented as of this encounter Visit Diagnoses Not on filedocumented in this encounter Care Teams Chucking Machine Set Up Operator Relationship Specialty Start Date End Date Twyla Cedeño MD [address] [place], [place] [phone] PCP - General Family Medicine 09/27/17 documented as of this encounter
--- OUTSIDE RECORDS SUMMARY | 2025-09-14 16:40 | XMS_ITS | Encounter Summary ---
Author Organization [employer] Address [address] [facility] [address]t [place] [address] Care Team Providers Care Paper Slitter Name Role Phone Twyla Cedeño MD Primary Care Provider + Encounter Details Date Type Department Care Team (Latest Contact Info) Description 03/26/2021 Abstract [facility] CONVERSIONS Dental, Provider, DDS Social History Tobacco [...] on filedocumented in this encounter Care Teams Paper Slitter Relationship Specialty Start Date End Date Twyla Cedeño MD [address] [place] [phone] PCP - General Family Medicine 09/27/17 documented as of this encounter
--- OUTSIDE RECORDS SUMMARY | 2025-09-14 16:40 | XMS_ITS | Encounter Summary ---
Author Organization [employer] Address [address] [facility] 7t [place] [address] Care Team Providers Care Business Segment Manager Name Role Phone Twyla Cedeño MD Primary Care Provider + Reason for Visit * Reason Comments Med Refill Encounter Details Date Type Department Care Team ([facility] st Contact Info) Description 05/30/2024 Refill [facility] DIABETES/NUTRITION 230 [place], [place] [phone] Twyla Cedeño MD 230 [place] [address] Tinea corporis Social History Tobacco Use Types [...] body documented in this encounter Care Teams Business Segment Manager Relationship Specialty Start Date End Date Twyla Cedeño MD [address] [place] [address] PCP - General Family Medicine 09/27/17 documented as of this encounter
--- OUTSIDE RECORDS SUMMARY | 2025-09-14 16:40 | XMS_ITS | Encounter Summary ---
Author Organization [employer] Address [address] [facility] [address] 7t [place] [address] Care Team Providers Care Bow Making Machine Operator Name Role Phone Twyla Cedeño MD Primary Care Provider + Encounter Details Date Type Department Care Team (Latest Contact Info) Description 11/03/2018 Abstract [facility] Dental, Provider, DDS Social [...] on filedocumented in this encounter Care Teams Bow Making Machine Operator Relationship Specialty Start Date End Date Twyla Cedeño MD [address] [place] [address] PCP - General Family Medicine 09/27/17 documented as of this encounter
--- OUTSIDE RECORDS SUMMARY | 2025-09-14 16:40 | XMS_ITS | Encounter Summary ---
Author Organization [employer] Address [address] [facility] 7t [place] [address] Care Team Providers Care Aemt Name Role Phone Twyla Cedeño MD Primary Care Provider + Reason for Visit * Reason Onset Date Comments Appointment Request 07/15/2025 Encounter Details Date Type Department Care Team ([facility] Contact Info) Description 07/15/2025 Telephone [facility] MEDICINE 230 [place], [place] [phone] Twyla Cedeño MD 230 [place], [place] [phone] Appointment Request Social History Tobacco Use Types [...] reschedule derm appointment. Please contact daughter at [phone]. documented in this encounter Plan of Treatment Not on file documented as of this encounter Visit Diagnoses Not on filedocumented in this encounter Additional Health Concerns Assessment Noted Time PHQ-9 Depression Total Score: 12 025 2:53 PM EDT documented as of this encounter Care Teams Aemt Relationship Specialty Start Date End Date Twyla Cedeño MD [address] [place] [address] PCP - General Family Medicine 09/27/17 documented as of this encounter
--- OUTSIDE RECORDS SUMMARY | 2025-09-14 16:40 | XMS_ITS | Clinical Summary ---
Author Organization Located Within [facility] Address [address] [place] [address] Phone Care Team Providers Care Dependency Case Manager Name Role Phone Twyla Cedeño MD [...] topic Medical Devices Not on file Insurance [facility] COOPERATIVE C3 ACO C3 ACO C3 ACO C3 ACO C3 ACO C3 ACO C3 ACO Care Teams Dependency Case Manager Relationship Specialty Start Date End Date Twyla Cedeño MD [address] [place] [address] [address] [place] [phone] PCP - General Internal Medicine 04/26/22 Additional Source Comments The information contained in this document represents components of the legal health record. It is not the complete legal health record.Located [facility]
--- OUTSIDE RECORDS SUMMARY | 2025-09-14 16:40 | XMS_ITS | Encounter Summary ---
Author Organization [employer] Address [address] [place] [address] 7t [place] [address] Care Team Providers Care Home Energy Consultant Supervisor Name Role Phone Twyla Cedeño MD Primary Care Provider + Reason for Visit * Reason Comments Med Refill Encounter Details Date Type Department Care Team (Late st Contact Info) Description 06/23/2023 Refill [facility] [address] [place], [place] [phone] Carmel Dang MD 230 [place], [place] [phone] Rosacea Social History Tobacco Use Types Packs/Day [...] Rosacea documented in this encounter Care Teams Home Energy Consultant Supervisor Relationship Specialty Start Date End Date Twyla Cedeño MD 230 [place], [place] [phone] PCP - General Family Medicine 09/27/17 documented as of this encounter
--- OUTSIDE RECORDS SUMMARY | 2025-09-14 16:40 | XMS_ITS | Encounter Summary ---
Author Organization [employer] Address [address] [facility] [address] 7t [place] [address] Care Team Providers Care Consulting Hr Professional Name Role Phone Twyla Cedeño MD Primary Care Provider + Encounter Details Date Type Department Care Team (Latest Contact Info) Description 06/02/2022 Abstract [facility] Dental, Provider, DDS Social [...] on filedocumented in this encounter Care Teams Consulting Hr Professional Relationship Specialty Start Date End Date Twyla Cedeño MD [address] [place] [address] PCP - General Family Medicine 09/27/17 documented as of this encounter
--- OUTSIDE RECORDS SUMMARY | 2025-09-14 16:40 | XMS_ITS | Encounter Summary ---
Author Organization [employer] Address 75 [facility] 7t [place] [address] Care Team Providers Care Product Safety Administrator Name Role Phone Twyla Cedeño MD Primary Care Provider + Reason for Visit * Reason Comments Med Refill Encounter Details Date Type Department Care Team ([facility] st Contact Info) Description 09/06/2025 Refill [facility] MEDICINE 230 [place], [place] [phone] Jaida Mckay, 230 [place], [place] [phone] Social History Tobacco Use Types Packs/Day Years [...] on file documented as of this encounter Goals Goal Patient Goal Type Associated Problems Recent Progress Patient-Stated? Author Help patients manage their type 2 diabetes Care Plan Help patients manage their type 2 diabetes No Jonh Garcia MA Weekly blood pressure task Care Plan Weekly blood pressure task No Jonh Garcia MA Help patients manage their type 2 diabetes Care Plan Help patients manage their type 2 diabetes No Jonh Garcia MA Patient has chronic kidney disease Care Plan Patient has chronic kidney disease No Jonh Garcia MA Help patients manage their type 2 diabetes Care Plan Help patients manage their type 2 diabetes No Jonh Garcia MA Patient has diabetic neuropathy Care Plan Patient has diabetic neuropathy No Jonh Garcia MA Weekly blood pressure task Care Plan Weekly blood pressure task No Pradeep Scott MD Weekly blood pressure task Care Plan Weekly blood pressure task No Pradeep Scott MD Patient has chronic kidney disease Care Plan Patient has chronic kidney disease No Pradeep Scott MD Patient has chronic kidney disease Care Plan Patient has chronic kidney disease No Pradeep Scott MD Patient has diabetic neuropathy Care Plan Patient has diabetic neuropathy No Pradeep Scott MD Patient has diabetic neuropathy Care Plan Patient has diabetic neuropathy No Praedep Scott MD documented as of this encounter Visit Diagnoses Not on filedocumented in this encounter Additional Health Concerns Active Problems Noted Date Diagnosed Date Help patients manage their type 2 diabetes 08/23 Weekly blood pressure task 08/23/2025 Help patients manage their type 2 diabetes 08/23 Patient has chronic kidney disease 08/23/2025 Help patients manage their type 2 diabetes 08/23 Patient has diabetic neuropathy 08/23/2025 Weekly blood pressure task 08/23/2025 Weekly blood pressure task 08/23/2025 Patient has chronic kidney disease 08/23/2025 Patient has chronic kidney disease 08/23/2025 Patient has diabetic neuropathy 08/23/2025 Patient has diabetic neuropathy 08/23/2025 Assessment Noted Time PHQ-9 Depression Total Score: 12 025 2:53 PM EDT documented as of this encounter Care Teams Product Safety Administrator Relationship Specialty Start Date End Date Twyla Cedeño MD [address] [place] [address] PCP - General Family Medicine 09/27/17 documented as of this encounter
--- OUTSIDE RECORDS SUMMARY | 2025-09-14 16:40 | XMS_ITS | Encounter Summary ---
Author Organization [employer] Address 75 [facility] 7t [place] [address] Care Team Providers Care Transmitter Chief Name Role Phone Twyla Cedeño MD Primary Care Provider + Reason for Visit * Reason Comments Med Refill Encounter Details Date Type Department Care Team (Late st Contact Info) Description 04/09/2024 Refill [facility] MEDICINE 230 [place], [place] [phone] Twyla Cedeño MD 230 [place], [place] [phone] Type 2 diabetes mellitus without complication, without long-term current use of insulin ([facility]) Social History Tobacco Use Types Packs/Day [...] (HCC) documented in this encounter Care Teams Transmitter Chief Relationship Specialty Start Date End Date Twyla Cedeño MD [address] [place] [address] PCP - General Family Medicine 09/27/17 documented as of this encounter
--- OUTSIDE RECORDS SUMMARY | 2025-09-14 16:40 | XMS_ITS | Encounter Summary ---
Author Organization [employer] Address [address] [facility] [address] 7t [place] [address] Care Team Providers Care Branch Rental Manager Name Role Phone Twyla Cedeño MD Primary Care Provider + Reason for Visit * Reason Comments Med Refill Encounter Details Date Type Department Care Team (Late st Contact Info) Description 04/30/2024 Refill [facility] MED & PEDS [address] [place], [place] [phone] Janny Wheatley MD 230 [place] [address] Social History Tobacco Use Types Packs/Day Years [...] on filedocumented in this encounter Care Teams Branch Rental Manager Relationship Specialty Start Date End Date Twyla Cedeño MD [address] [place] [address] PCP - General Family Medicine 09/27/17 documented as of this encounter
--- OUTSIDE RECORDS SUMMARY | 2025-09-14 16:40 | XMS_ITS | Encounter Summary ---
Author Organization [employer] Address 75 [facility] 7t [place] [address] Care Team Providers Care Multisensor Intelligence Officer Name Role Phone Twyla Cedeño MD Primary Care Provider + Reason for Visit * Reason Onset Date Comments Med Refill 08/12/2025 Encounter Details Date Type Department Care Team ([facility] st Contact Info) Description 08/12/2025 Refill [facility] MEDICINE 230 [place], [place] [phone] Twyla Cedeño MD 230 [place], [place] [phone] Social History Tobacco Use Types Packs/Day Years [...] documented as of this encounter Care Teams Multisensor Intelligence Officer Relationship Specialty Start Date End Date Twyla Cedeño MD [address] [place] [address] PCP - General Family Medicine 09/27/17 documented as of this encounter
--- OUTSIDE RECORDS SUMMARY | 2025-09-14 16:40 | XMS_ITS | Encounter Summary ---
Author Organization [employer] Address [address] [facility] [address] 7t [place] [address] Care Team Providers Care Feeder Catcher Name Role Phone Twyla Cedeño MD Primary Care Provider + Encounter Details Date Type Department Care Team (Late st Contact Info) Description 09/14/2025 Orders Only [facility] External Provider, [facility] Social History Tobacco Use Types Packs/Day Years [...] Plan Weekly blood pressure task No Jonh Garica MA Help patients manage their type 2 [...] has diabetic neuropathy No Pradeep Scott MD documented as of this encounter Procedures Procedure Name Priority Date/Time Associated Diagnosis Comments XR THORACIC SPINE 3 VIEWS Routine 09/14/2025 4:09 PM EST XR LUMBAR SPINE 2-3 VIEWS Routine 09/14/2025 3:59 PM EST documented in this encounter Results * XR Thoracic Spine 3 Views (09/14/2025 4:09 PM EST) Anatomical Region Laterality Modality Spine, T-spine Radiographic Lisa ging 09/14/2025 4:09 PM EST Narrative 09/14/2025 4:10 PM EST [address] [address] XRay Report Signed Patient: Lorena Zamudio MR#: [id number] : 1965 Acct:[id number] Age/Sex: 59 / F ADM Date: 09/14/25 Loc: HO.ED Attending Dr: Ordering Physician: Rut Trejo Date of Service: 09/14/25 Procedure(s): XR thoracic spine 3V Accession Number(s): [id number] cc: Twyla Cedeño MD; Rut Trejo Reason for Exam: fall mid back pain CLINICAL HISTORY: fall mid back pain 3 views thoracic spine Comparison: CR/SR - XR LUMBAR SPINE 4 OR MORE VIEWS - 06/21/25 14:01 EDT Findings: Normal vertebral body alignment. Mild chronic T12 compression fracture. Vertebral body heights in the remaining thoracic spine are well-maintained. No acute fracture or dislocation. Hkuq-bj-lawossvr multilevel disc space narrowing. Large endplate osteophytes at T9-10 and T10-11. IMPRESSION: No acute fracture in the thoracic spine. This document has been electronically signed by: Shaye Duarte DO on 09/14/2025 16:09:27 Dictated By: Shaye Duarte MD Signed By: <Electronically signed by Shaye Duarte MD in OV> 09/14/25 1610 DD/ 1609 TD/TT: 09/14/25 1609 Beater Room Supervisor: Procedure Note Donotuseinterpreter, Image - 09/14/[address] [address] XRay Report Signed Patient: Lorena ZamudioMR#: [id number] : 1965Acct:[id number] Age/Sex: 59 / FADM Date: 09/14/25 Loc: HO.ED Attending Dr: Ordering Physician: Rut Trejo Date of Service: 09/14/25 Procedure(s): XR thoracic spine 3V Accession Number(s): [id number] cc: Twyla Cedeño MD; Rut Trejo Reason for Exam: fall mid back pain CLINICAL HISTORY: fall mid back pain 3 views thoracic spine Comparison: CR/SR - XR LUMBAR SPINE 4 OR MORE VIEWS - 06/21/25 14:01 EDT Findings: Normal vertebral body alignment. Mild chronic T12 compression fracture. Vertebral body heights in the remaining thoracic spine are well-maintained. No acute fracture or dislocation. Denf-hs-czfkqndi multilevel disc space narrowing. Large endplate osteophytes at T9-10 and T10-11. IMPRESSION: No acute fracture in the thoracic spine. This document has been electronically signed by: Shaye Duarte DO on 09/14/2025 16:09:27 Dictated By: Shaye Duarte MD Signed By: <Electronically signed by Shaye Duarte MD in OV> 09/14/25 1610 DD/ 1609 TD/TT: 09/14/25 1609 Beater Room Supervisor: [facility] External Provider IMG XR PROCEDURES Final Result * XR Lumbar Spine 2-3 Views (09/14/2025 3:59 PM EST) Anatomical Region Laterality Modality Spine, L-spine Radiographic Lisa ging 09/14/2025 3:59 PM EST Narrative 09/14/2025 4:02 PM EST [address] [address] XRay Report Signed Patient: Lorena Zamudio MR#: [id number] : 1965 Acct:[id number] Age/Sex: 59 / F ADM Date: 09/14/25 Loc: HO.ED Attending Dr: Ordering Physician: Rut Trejo Date of Service: 09/14/25 Procedure(s): XR lumbar spine 2-3V Accession Number(s): [id number] cc: Twyla Cedeño MD; Rut Trejo Reason for Exam: fall mid back pain CLINICAL HISTORY: fall mid back pain 3 views lumbar spine Comparison: CR/SR - XR LUMBAR SPINE 4 OR MORE VIEWS - 06/21/25 14:01 EDT Findings: Bilateral L5 pars defects. Stable minimal grade 1 spondylolisthesis at L5-S1. No scoliosis. No significant vertebral body compression deformity in the lumbar spine. Hcyx-in-mfftgoed multilevel disc space narrowing with multilevel endplate osteophytes. Most prominent findings at L5-S1. Moderate multilevel facet degenerative changes. IMPRESSION: No acute fracture in the lumbar spine. This document has been electronically signed by: Shaye Duarte DO on 09/14/2025 15:59:53 Dictated By: Shaye Duarte MD Signed By: <Electronically signed by Shaye Duarte MD in OV> 09/14/25 1601 DD/ 1559 TD/TT: 09/14/25 1559 Beater Room Supervisor: Procedure Note Donotuseinterpreter, Image - 09/14/2025 [place] [address] XRay Report Signed Patient: Lorena ZamudioMR#: [id number] : 1965Acct:[id number] Age/Sex: 59 / FADM Date: 09/14/25 Loc: HO.ED Attending Dr: Ordering Physician: Rut Trejo Date of Service: 09/14/25 Procedure(s): XR lumbar spine 2-3V Accession Number(s): [id number] cc: Twyla Cedeño MD; Rut Trejo Reason for Exam: fall mid back pain CLINICAL HISTORY: fall mid back pain 3 views lumbar spine Comparison: CR/SR - XR LUMBAR SPINE 4 OR MORE VIEWS - 06/21/25 14:01 EDT Findings: Bilateral L5 pars defects. Stable minimal grade 1 spondylolisthesis at L5-S1. No scoliosis. No significant vertebral body compression deformity in the lumbar spine. Axzc-yo-untnlojl multilevel disc space narrowing with multilevel endplate osteophytes. Most prominent findings at L5-S1. Moderate multilevel facet degenerative changes. IMPRESSION: No acute fracture in the lumbar spine. This document has been electronically signed by: Shaye Duarte DO on 09/14/2025 15:59:53 Dictated By: Shaye Duarte MD Signed By: <Electronically signed by Shaye Duarte MD in OV> 09/14/25 1601 DD/ 1559 TD/TT: 09/14/25 1559 Beater Room Supervisor: [facility] External Provider IMG XR PROCEDURES Final Result documented in this encounter Visit Diagnoses Not on filedocumented [...] documented as of this encounter Care Teams Feeder Catcher Relationship Specialty Start Date End Date Twyla Cedeño MD [address] [place] [address] PCP - General Family Medicine 09/27/17 documented as of this encounter
--- OUTSIDE RECORDS SUMMARY | 2025-09-14 16:40 | XMS_ITS | Encounter Summary ---
Author Organization [employer] Address 75 [facility] 7t [place] [address] Care Team Providers Care Linoleum Tile Floor Layer Name Role Phone Twyla Cedeño MD Primary Care Provider + Reason for Visit * Reason Onset Date Comments dental emergency insurance inactive 04/16/2025 portal discrepancy 04/16/2025 Encounter Details Date Type Department Care Team (Late st Contact Info) Description 04/16/2025 Telephone [facility] ADULT DENTAL 230 [place], [place] [phone] Tyrone Miller, DDS 230 [place], [place] [phone] dental emergency insurance inactive ; portal discrepancy [...] - 04/16/2025 10:17 AM EDT Spoke with [facility] bowling or skating front desk clerk and they will send email for portal [...] on filedocumented in this encounter Care Teams Linoleum Tile Floor Layer Relationship Specialty Start Date End Date Twyla Cedeño MD [address] [place] [address] PCP - General Family Medicine 09/27/17 documented as of this encounter
--- OUTSIDE RECORDS SUMMARY | 2025-09-14 16:40 | XMS_ITS | Encounter Summary ---
Author Organization [employer] Address 75 [facility] 7t [place] [address] Care Team Providers Care Key Account Executive Name Role Phone Twyla Cedeño MD Primary Care Provider + Reason for Visit * Reason Comments Med Refill Encounter Details Date Type Department Care Team ([facility] st Contact Info) Description 07/27/2024 Refill [facility] DIABETES/NUTRITION 230 [place], [place] [phone] Twyla Cedeño MD 230 [place] [address] Tinea corporis Social History Tobacco Use Types [...] body documented in this encounter Care Teams Key Account Executive Relationship Specialty Start Date End Date Twyla Cedeño MD [address] [place] [address] PCP - General Family Medicine 09/27/17 documented as of this encounter
--- OUTSIDE RECORDS SUMMARY | 2025-09-14 16:41 | XMS_ITS | Clinical Summary ---
Author Organization [employer] Address [address] [facility] [address] [place] [address] Care Team Providers Care Shuttle Route Vehicle Operator Name Role Phone Bobo Dumont MD Primary Care Provider + Allergies Active Allergy Reactions Criticality Noted Date Comments [place] Oil 06/14/2024 Citrullus Vulgaris 02/04/2025 Medications Blood Pressure Monitoring (Omron 3 Series BP Monitor) device USE TO CHECK BLOOD PRESSURE EVERY DAY 022 Active Sodium Fluoride (PreviDent) 1.1 % gel Use at bed time every night spit do not rinse for 30 min. 019 Active zoster vaccine, live, (Zostavax) 00387 UNT/0.65ML injection inject 0.65 milliliter by subcutaneous route once 019 Active Continuous Glucose Sensor (FreeStyle Sony 2 Sensor) [facility] Apply 1 sensor every 14 days 2 each 11 024 Active glucose blood (FREESTYLE LITE) test stripIndication s:Type 2 diabetes mellitus without complication, without long-term current use of insulin ([facility]) TEST BLOOD SUGAR THREE TIMES DAILY 100 strip 1 024 Active TRUEplus Lancets 33G miscIndications :Type 2 diabetes mellitus without complication, without long-term current use of insulin ([facility]) TEST BLOOD SUGAR THREE TIMES DAILY 100 each 11 5 4:47 PM EST 024 Active famotidine (Pepcid) 40 MG tabletIndicatio ns:Gastroesopha geal reflux disease with esophagitis without hemorrhage TAKE 1 TABLET BY MOUTH AT BEDTIME NEEDED 90 tablet 1 Active FT Antacid Extra Strength 750 MG [...] MORNING 90 tablet 1 Active Continuous Glucose Pathology Assistant (Gilian TechnologiesStyle Sony 2 Jennings) device Scan sensor every 8 hours 1 each Active gabapentin (Neurontin) 600 MG tablet Take 0.5 tablets (300 mg) by mouth 3 times daily. 45 tablet 3 025 2025 Active baclofen (Lioresal) 10 MG tablet TAKE 1 TABLET BY MOUTH THREE TIMES DAILY IN THE MORNING, AT NOON, AND AT BEDTIME NEEDED FOR MUSCLE SPASMS 60 tablet 1 5 4:47 PM EST Active acetaminophen (Tylenol 8 Hour) 650 MG ER tablet TAKE 1 TABLET BY MOUTH EVERY 8 HOURS NEEDED FOR MILD PAIN DO NOT BREAK, CRUSH, DISSOLVE OR CHEW 60 tablet 1 5 4:47 PM EST 025 Active SITagliptin (Januvia) 50 MG tablet Take 1 tablet (50 mg) by mouth in the morning. 30 tablet 3 Active linaGLIPtin (Tradjenta) 5 MG tabletIndicatio ns:Type 2 diabetes mellitus without complication, without long-term current use of insulin (HCC) Take 1 tablet (5 mg) by mouth Once per day. 30 tablet 11 025 2025 Active Lidocaine Pain Relief 4 % patch APPLY 1 PATCH TOPICALLY DAILY 30 patch Active glucose blood (FreeStyle Precision Georgi Test) test stripIndication s:Type 2 diabetes mellitus without complication, without long-term current use of insulin (HCC) USE DIRECTED TO TEST BLOOD SUGAR THREE TIMES DAILY 100 strip 3 5 4:47 PM EST Active naproxen (Naprosyn) 500 MG tablet TAKE 1 TABLET BY MOUTH TWICE DAILY IN THE MORNING AND AT BEDTIME NEEDED FOR MILD PAIN 20 tablet 1 Active azelaic acid (Finacea) 15 % gelIndications: Rosacea Apply 1 Application. topically 2 times daily. 60 g 11 025 2025 Active Diclofenac Sodium 1 % gel APPLY 2 GRAM TOPICALLY TO AFFECTED AREA(S) 4 TIMES A DAY IN THE MORNING, AT NOON, IN THE EVENING, AND AT BEDTIME (for pain) 200 g 2 Active glucose blood (FreeStyle Precision Georgi Test) test stripIndication s:Type 2 diabetes mellitus without complication, without long-term current use of insulin (HCC) USE DIRECTED TO TEST BLOOD SUGAR THREE TIMES DAILY 100 strip 3 025 2024 Discontinued(R eorder (will not trigger notification to Pharmacy)) Diclofenac Sodium 1 % gel Apply 2 g topically if needed in the morning, at noon, in the evening, and at bedtime (pain). 150 g 3 5 4:47 PM EST 025 2024 Discontinued Lidocaine (HM Lidocaine Patch) 4 % patch Apply 1 patch topically Once per day. 30 patch 025 2024 Discontinued naproxen (Naprosyn) 500 MG tablet TAKE 1 TABLET BY MOUTH TWICE DAILY IN THE MORNING AND AT BEDTIME NEEDED FOR MILD PAIN 20 tablet 1 025 2024 Discontinued azelaic acid (Finacea) 15 % gelIndications: Rosacea Apply 1 Application. topically 2 times daily. 60 g 11 025 2024 Discontinued Active Problems Problem Noted Date [...] this time. They will check with insurance ed case manager or community services in the area. I spoke with her home services manager delivery and she will discussed with patient regarding [...] ADLs, I will order an evaluation for [employer] Helicobacter pylori (H. pylori) 11/24/2022 Overview (07/10/2023): [...] WRITTEN ON 05/09/2023 2:35 PM BY TRICIA Anderson, A1C at goal. Continue same medications in med boxes. Refills x 3 months Due for blood test on 2022 she will follow up with PCP in [facility]. Her daughter will schedule fu with [...] Encounters Date Type Department Care Team Description 09/14/2025 Orders Only [facility] External Provider, [facility] 09/06/2025 Refill [facility] [address] [place] [address] Jaida Mckay DO 08/23/2025 1:00 PM EST Office Visit [facility] [address] [place] [address] Pradeep Scott MD Rosacea (Primary Dx) 08/23/2025 Travel 08/22/2025 Refill [facility] [address] [facility] [place] [address] Bobo Dumont MD 08/20/2025 Refill [facility] [address] [facility] [place] [address] Bobo Dumont MD Type 2 diabetes mellitus without complication, without long-term current use of insulin (HCC) 08/19/2025 Refill [facility] [address] [facility] [place] [address] Bobo Dumont MD Type 2 diabetes mellitus without complication, without long-term current use of insulin (HCC) 08/12/2025 Refill [facility] [address] [facility] [place] [address] Bobo Dumont MD 08/06/2025 Refill [facility] [address] [facility] [place] [address] Bobo Dumont MD Type 2 diabetes mellitus without complication, without long-term current use of insulin (HCC) 07/30/2025 Refill [facility] [address] [facility] [place] [address] Bobo Dumont MD 07/25/2025 Refill [facility] [address] [facility] [place] [address] Jaida Mckay, DO 07/15/2025 Telephone [facility] [address] [facility] [place] [address] Bobo Dumont MD Appointment Request 07/15/2025 Refill [facility] [address] [facility] [place] [address] Jaida Mckay, DO 07/12/2025 12:00 PM EDT Office Visit [facility] [address] [facility] [place] [address] Bobo Dumont MD Type 2 diabetes mellitus [...] Encounter for immunization 07/12/2025 Travel 07/11/2025 Telephone [facility] [address] [facility] [place] [address] Bobo Dumont MD Chart Prep 07/05/2025 Results Follow-Up [facility] [address] [place] [address] Bobo Dumont MD XR Lumbar Spine Complete 4+ Views 06/21/2025 11:30 AM EDT Office Visit [facility] [address] [place] [address] Jaida Mckay DO Acute bilateral low back pain with right-sided sciatica (Primary Dx) 06/21/2025 Travel 06/21/2025 Telephone [facility] [address] [place] [address] Bobo Dumont MD Nurse Triage 06/20/2025 1:30 PM EDT Office Visit [facility] [address] [place] [address] Richard Bautista, DMD 06/20/2025 Travel 06/18/2025 Telephone [facility] [address] [place] [address] Bobo Dumont MD Appointment Request from Last 3 Months Immunizations Immunization Administration [...] Sign Reading Time Taken Comments Blood Pressure 130/70 08/23/2025 12:58 PM EST Pulse 78 08/23/2025 12:58 PM EST Temperature 37.1 C (98.7 F) 08/23/2025 12:58 PM EST Respiratory Rate 14 08/23/2025 12:58 PM EST Oxygen Saturation 95% 07/12/2025 12:10 PM EDT Inhaled Oxygen Concentration - - Weight 73.9 kg (163 lb) 08/23/2025 12:58 PM EST Height 152.4 cm (5') 08/23/2025 12:58 PM EST Body Mass Index 31.83 08/23/2025 12:58 PM EST Plan of Treatment Health Maintenance Due Date Last Done Comments CT Colonography 1964 FIT DNA/Cologuard 1964 FIT 1965 FOBT 1965 HIV Screening 1965 Sigmoidoscopy 1965 Pneumococcal Vaccine: 50+ Years (1 of 2 - PCV) 1983 Pap Smear 1985 RSV Patients and Patients Aged 60 years or older (1 - Risk 50-74 years 1-dose series) 2014 Zoster Vaccines (2 of 3) 07/24/2019 05/29/2019 Cervical Cancer Screening 11/23/2022 HPV/Cotest 11/23/2022 11/23/2017 Dental Oral Exam 01/18/2025 07/19/2024 COVID-19 Vaccine [...] 07/12/2026 07/12/2025, 07/12/2025, 07/12/2025, Additional history exists Mammogram 07/30/2026 07/30/2025, 07/11, 11/07/2018, Additional history exists Disability Screening 08/23/2026 08/23/2025 Eye Exam 01/08/2027 01/08/2025, 04/0 10/2024, 01/08/2025, Additional history exists Dental X-Ray: Full Mouth 07/20/2027 07/19/2024, 05/11 Colonoscopy 11/05/2027 11/05/2022 Colorectal Cancer Screening 11/05/2027 [...] on patient's age to complete this topic Goals Goal Patient Goal Type Associated Problems [...] has diabetic neuropathy No Pradeep Scott MD Procedures Procedure Name Priority Date/Time Associated Diagnosis Comments XR THORACIC SPINE 3 VIEWS Routine 09/14/2025 4:09 PM EST XR LUMBAR SPINE 2-3 VIEWS Routine 09/14/2025 3:59 PM EST BI MAMMOGRAM SCREENING TOMOSYNTHESIS BILATERAL Routine 07/30/2025 2:40 PM EDT Screening mammogram for breast cancer POCT GLYCATED HEMOGLOBIN, TOTAL Routine 07/12/2025 12:21 [...] PROBLEM FOCUSED Routine 06/20/2025 1:30 PM EDT PROPHYLAXIS - ADULT Routine [...] EDT Mixed hyperlipidemia HM COLONOSCOPY Routine 11/05/2022 ZZZ HISTORICAL HPV MRNA E6/E7 Routine 11/23/2017 10:06 AM EST from Last 3 Months or Most Recently Relevant to Health Maintenance Results * XR Thoracic Spine 3 Views (09/14/2025 4:09 PM EST) Anatomical Region Laterality Modality Spine, T-spine Radiographic Lisa ging 09/14/2025 4:09 PM EST Narrative 09/14/2025 4:10 PM EST [place] [address] XRay Report Signed Patient: Lorena Zamudio MR#: [id number] : 1965 Acct:[id number] Age/Sex: 59 / F ADM Date: 09/14/25 Loc: HO.ED Attending Dr: Ordering Physician: Rut Trejo Date of Service: 09/14/25 Procedure(s): XR thoracic spine 3V Accession Number(s): [id number] cc: Bobo Dumont MD; Rtu Trejo Reason for Exam: fall mid back pain CLINICAL HISTORY: fall mid back pain 3 views thoracic spine Comparison: CR/SR - XR LUMBAR SPINE 4 OR MORE VIEWS - 06/21/25 14:01 EDT Findings: Normal vertebral body alignment. Mild chronic T12 compression fracture. Vertebral body heights in the remaining thoracic spine are well-maintained. No acute fracture or dislocation. Ddni-so-gdefidth multilevel disc space narrowing. Large endplate osteophytes at T9-10 and T10-11. IMPRESSION: No acute fracture in the thoracic spine. This document has been electronically signed by: Shaye Duarte DO on 09/14/2025 16:09:27 Dictated By: Shaye Duarte MD Signed By: <Electronically signed by Shaye Duarte MD in OV> 09/14/25 1610 DD/ 1609 TD/TT: 09/14/25 1609 [place] Converter Operator: Procedure Note Donotuseinterpreter, Image - 09/14/[address] [address] XRay Report Signed Patient: Lorena ZamudioMR#: [id number] : 1965Acct:[id number] Age/Sex: 59 / FADM Date: 09/14/25 Loc: HO.ED Attending Dr: Ordering Physician: Rut Trejo Date of Service: 09/14/25 Procedure(s): XR thoracic spine 3V Accession Number(s): [id number] cc: Bobo Dumont MD; Rut Trejo Reason for Exam: fall mid back pain CLINICAL HISTORY: fall mid back pain 3 views thoracic spine Comparison: CR/SR - XR LUMBAR SPINE 4 OR MORE VIEWS - 06/21/25 14:01 EDT Findings: Normal vertebral body alignment. Mild chronic T12 compression fracture. Vertebral body heights in the remaining thoracic spine are well-maintained. No acute fracture or dislocation. Ujla-nx-oebuuqtz multilevel disc space narrowing. Large endplate osteophytes at T9-10 and T10-11. IMPRESSION: No acute fracture in the thoracic spine. This document has been electronically signed by: Shaye Duarte DO on 09/14/2025 16:09:27 Dictated By: Shaye Duarte MD Signed By: <Electronically signed by Shaye Duarte MD in OV> 09/14/25 1610 DD/ 1609 TD/TT: 09/14/25 1609 [place] Converter Operator: [facility] External Provider IMG XR PROCEDURES Final Result * XR Lumbar Spine 2-3 Views (09/14/2025 3:59 PM EST) Anatomical Region Laterality Modality Spine, L-spine Radiographic Lisa ging 09/14/2025 3:59 PM EST Narrative 09/14/2025 4:02 PM EST [address] [address] XRay Report Signed Patient: Lorena Zamudio MR#: [id number] : 1965 Acct:[id number] Age/Sex: 59 / F ADM Date: 09/14/25 Loc: HO.ED Attending Dr: Ordering Physician: Rut Trejo Date of Service: 09/14/25 Procedure(s): XR lumbar spine 2-3V Accession Number(s): [id number] cc: Bobo Dumont MD; Rut Trejo Reason for Exam: fall mid back pain CLINICAL HISTORY: fall mid back pain 3 views lumbar spine Comparison: CR/SR - XR LUMBAR SPINE 4 OR MORE VIEWS - 06/21/25 14:01 EDT Findings: Bilateral L5 pars defects. Stable minimal grade 1 spondylolisthesis at L5-S1. No scoliosis. No significant vertebral body compression deformity in the lumbar spine. Vloj-pe-cpqdalmp multilevel disc space narrowing with multilevel endplate osteophytes. Most prominent findings at L5-S1. Moderate multilevel facet degenerative changes. IMPRESSION: No acute fracture in the lumbar spine. This document has been electronically signed by: Shaye Duarte DO on 09/14/2025 15:59:53 Dictated By: Shaye Duarte MD Signed By: <Electronically signed by Shaye Duarte MD in OV> 09/14/25 1601 DD/ 1559 TD/TT: 09/14/25 1559 [place] Converter Operator: Procedure Note Donotuseinterpreter, Image - 09/14/2025 [place] [address] XRay Report Signed Patient: Lorena ZamudioMR#: [id number] : 1965Acct:[id number] Age/Sex: 59 / FADM Date: 09/14/25 Loc: HO.ED Attending Dr: Ordering Physician: Rut Trejo Date of Service: 09/14/25 Procedure(s): XR lumbar spine 2-3V Accession Number(s): [id number] cc: Bobo Dumont MD; Rut Trejo Reason for Exam: fall mid back pain CLINICAL HISTORY: fall mid back pain 3 views lumbar spine Comparison: CR/SR - XR LUMBAR SPINE 4 OR MORE VIEWS - 06/21/25 14:01 EDT Findings: Bilateral L5 pars defects. Stable minimal grade 1 spondylolisthesis at L5-S1. No scoliosis. No significant vertebral body compression deformity in the lumbar spine. Lleo-fh-zanefyvs multilevel disc space narrowing with multilevel endplate osteophytes. Most prominent findings at L5-S1. Moderate multilevel facet degenerative changes. IMPRESSION: No acute fracture in the lumbar spine. This document has been electronically signed by: Shaye Duarte DO on 09/14/2025 15:59:53 Dictated By: Shaye Duarte MD Signed By: <Electronically signed by Shaye Duarte MD in OV> 09/14/25 1601 DD/ 1559 TD/TT: 09/14/25 155 [place] Converter Operator: [facility] External Provider IMG XR PROCEDURES Final Result * BI Mammogram Screening Tomosynthesis Bilateral (07/30/2025 2:40 PM EDT) Anatomical Region Laterality Modality Breast Bilateral Mammography 07/30/2025 2:40 PM EDT Narrative 08/05/2025 12:[address] PM [address]T [address] [place] [address] Mammography Report Signed Patient: Lorena Zamudio MR#: [id number] : 1965 Acct:[id number] Age/Sex: 59 / F ADM Date: 07/30/25 Loc: HO.MAMMO Attending Dr: Bobo Dumont MD Ordering Physician: Bobo Dumont MD Results: 1Ne gative Date of Service: 07/30/25 Follow Up: 1 Year From [facility] Mammogram Procedure(s): MM tomosynthesis screening BI Accession Number(s): [id number] cc: Bobo Dumont MD Reason For Exam: Breast cancer screening EXAMINATION: MM SCREENING DIGITAL BREAST TOMOSYNTHESIS, BILATERAL CLINICAL INFORMATION: Screening. Asymptomatic. COMPARISON: Mammography: Comparison is made with available priors TECHNIQUE: Digital breast mammography with tomosynthesis is performed in both the craniocaudal and mediolateral oblique views along with computer-aided detection (CAD). FINDINGS: The breasts are almost entirely fatty. There are no significant masses, abnormal calcifications, or other abnormalities. MM/MM tomosynthesis screening BI IMPRESSION: No mammographic evidence of malignancy. ASSESSMENT: BI-RADS Category 1: Negative RECOMMENDATION: Routine annual mammography screening. 1 year F/U This examination should not preclude the clinical evaluation of a suspicious palpable abnormality. This patient's information was entered into a reminder system with a target due date for their next mammogram. Electronically signed by: Maria A Chandra DO 08/05/2025 12:52 PM EDT RP Dictated By: Maria A Chandra DO Signed By: <Electronically signed by Maria A Chandra DO in OV> 08/05/25 1252 DD/ 1440 TD/TT: 07/30/25 1500 [place] Converter Operator: Procedure Note Donotuseinterpreter, Image - [facility]05/[facility] [address] [place] [address] Mammography Report Signed Patient: Lorena ZamudioMR#: [id number] : 1965Acct:[id number] Age/Sex: 59 / FADM Date: 07/30/25 Loc: HO.MAMMO Attending Dr: Bobo Dumont MD Ordering Physician: Bobo Dumont MDResults: 1Ne gative Date of Service: 07/30/25Follow Up: 1 Year From Orig ina Mammogram Procedure(s): MM tomosynthesis screening BI Accession Number(s): [id number] cc: Bobo Dumont MD Reason For Exam: Breast cancer screening EXAMINATION: MM SCREENING DIGITAL BREAST TOMOSYNTHESIS, BILATERAL CLINICAL INFORMATION: Screening. Asymptomatic. COMPARISON: Mammography: Comparison is made with available priors TECHNIQUE: Digital breast mammography with tomosynthesis is performed in both the craniocaudal and mediolateral oblique views along with computer-aided detection (CAD). FINDINGS: The breasts are almost entirely fatty. There are no significant masses, abnormal calcifications, or other abnormalities. MM/MM tomosynthesis screening BI IMPRESSION: No mammographic evidence of malignancy. ASSESSMENT: BI-RADS Category 1: Negative RECOMMENDATION: Routine annual mammography screening. 1 year F/U This examination should not preclude the clinical evaluation of a suspicious palpable abnormality. This patient's information was entered into a reminder system with a target due date for their next mammogram. Electronically signed by: Maria A Chandra DO 08/05/2025 12:52 PM EDT Dictated By: Maria A Chandra DO Signed By: <Electronically signed by Maria A Chandra DO in OV> 08/05/25 1252 DD/ 1440 TD/TT: 07/30/25 1500 [place] Converter Operator: Bobo Dumont MD IMG BI PROCEDURES Edited Result - Final * (ABNORMAL) POCT Hgb A1c (07/12/2025 12:21 [...] PM EDT Narrative 07/09/2025 4:14 PM EDT [address] [address] Magnetic Resonance Report Signed Patient: Lorena Zamudio MR#: [id number] : 1965 Acct:[id number] Age/Sex: 59 / F ADM Date: 07/09/25 Loc: HO.MRI Attending Dr: Jaida Mckay DO Ordering Physician: Jaida Mckay DO Date of Service: 07/09/25 Procedure(s): MR lumbar spine wo con Accession Number(s): [id number] cc: Bobo Dumont MD; Jaida Mckay DO [...] 07/09/25 1611 DD/ 1534 TD/TT: 07/09/25 1549 [place] Converter Operator: Procedure Note Donotuseinterpreter, Image - 07/09/2025 [place] [address] Magnetic Resonance Report Signed Patient: Lorena ZamudioMR#: [id number] : 1965Acct:[id number] Age/Sex: 59 / FADM Date: 07/09/25 Loc: HO.MRI Attending Dr: Jaida Mckay DO Ordering Physician: Jaida Mckay DO Date of Service: 07/09/25 Procedure(s): MR lumbar spine wo con Accession Number(s): [id number] cc: Bobo Dumont MD; Jaida Mckay DO [...] 07/09/25 1611 DD/ 1534 TD/TT: 07/09/25 1549 [place] Converter Operator: Jaida Mckay DO IMG MRI PROCEDURES Final Res ult * XR Lumbar Spine Complete 4+ Views (06/21/2025 2:18 PM EDT) Anatomical Region Laterality Modality Spine, L-spine Radiographic Lisa ging 06/21/2025 2:18 PM EDT Narrative 06/21/2025 2:30 PM EDT [facility] [address] [place] [address] XRay Report Signed Patient: Lorena Zamudio MR#: [id number] : 1965 Acct:[id number] Age/Sex: 59 / F ADM Date: 06/21/25 [facility]: Jaida Mckay DO Ordering Physician: Jaida Mckay DO Date of Service: 06/21/25 Procedure(s): XR lumbar spine 4V min Accession Number(s): [id number] cc: Bobo Dumont MD; Jaida Mckay DO [...] signed by Joel Bonner MD in OV> 06/21/251426 DD/ 17 TD/TT: 06/21/251420 [place] Converter Operator: Procedure Note Michaelnishanterikarianna, Image - 06/21/[address] [address] XRay Report Signed Patient: Lorena ZamudioMR#: [id number] : 1965Acct:[id number] Age/Sex: 59 / FADM Date: 06/21/25 Loc: HO.HHCX Attending Dr: Jaida Mckay DO Ordering Physician: Jaida Mckay DO Date of Service: 06/21/25 Procedure(s): XR lumbar spine 4V min Accession Number(s): [id number] cc: Bobo Dumont MD; Jaida Mckay DO [...] <Electronically signed by Joel Bonner MDin OV> 06/21/251426 DD/ 17 TD/TT: 06/21/251420 [place] Converter Operator: Jaida Mckay DO IMG XR PROCEDURES Final Resu lt * Hepatitis Panel, General (01/17/2025 11:39 AM EDT) Hepatitis A IgM Nonreactive Nonreactive [facility] Comment:IgM antibodies to LYNCH V not detected; does not exclude earlyacute or recovered HAV infection. ~Hepatitis B Surface Antibody NONREACTIVE Nonreactive [facility] Comment:Nonreactive: < 8.00 mIU/mL Hepatitis B Core Antibody Nonreactive Nonreactive [facility] Hepatitis C Antibody Nonreactive Nonreactive [facility] Comment:Antibodies to HCV no t detected; does not exclude early acuteHCV infection. Hepatitis B Surface Ag Negative Negative [facility] Blood 01/17/2025 11:3 9 AM EDT 01/17/2025 1:33 PM EDT us Bobo Dumont MD LAB BLOOD ORDERABLES Fin al Result [facility] [address] [place] [phone] * Lipid Panel with Reflex to Direct LDL (06/14/2024 1:37 PM EDT) Triglycerides 106 <150 mg/dL [facility] Comment:Desirable Triglyceri de: less than 150 mg/dLBorderline High Triglyceride 150-199 mg/dLHigh Triglyceride: 200-499 mg/dLVery High Triglyceride: greater than or equal to 5OO mg/dL Cholesterol 137 <200 mg/dL [facility] Comment:Desirable Cholestero l: less than 200 mg/dLBorderline High Cholesterol: 200-239 mg/dLHigh Cholesterol: greater than 239 mg/dL LDL Cholesterol Calculated 75 <100 mg/dL [facility] Comment:Desirable LDL: less than 100 mg/dLNear Optimal/Above Optimal LDL: 110- 129 mg/dLBorderline High LDL: 130-159 mg/dLHigh LDL: 160-189 mg/dLVery High LDL: greater than or equal to 190 mg/dL HDL Cholesterol 41 >40 mg/dL [facility] Comment:Desirable HDL: great er than 40 mg/dL Note: This HDL assay may give artificially low results in patients with liver disease. Blood 06/14/2024 1:37 PM EDT 06/14/2024 4:32 PM EDT Bobo Dumont MD LAB BLOOD ORDERABLES Fin al Result Performing Organization Address [facility]/ZIP Co de Phone Number [facility] [address] [place] [phone] * (ABNORMAL) Hm Colonoscopy (11/05/2022) Colonoscopy Abnormal( A) Normal [facility] Comment:adenomatous polyps a nd Diverticulosis 11/05/2022 Bobo Dumont MD HEALTH MAINTENANCE Final Result Performing Organization Address [facility] Co de Phone Number [facility] [address] [place] [address] [phone] * HPV mRNA E6/E7 (11/23/2017 10:06 AM EST) HPV mRNA E6/E7 Not Detected NOT DETECTED [facility] Comment: This test was performed using the APTIMA(R) HPV Assay ([employer] This assay detects E6/E7 viral messenger RNA (mRNA) from 14 high-risk HPV types (16,18,31,33,35,39,45,51, 52,56,58,59,66,68). For additional information please refer to: http://education.eco4cloud.Restorius/faq/FLJ678f6 (This link is being provided for informational/ educational purposes only.) Test Performed by [facility] [employer] [facility], [address] [place] [id number] Narciso Diallo M.D., Ph.D., Director of Laboratories , [place] [id number] Please note: Effective 06/21/2016, HPV testing will be performed using [employer]'s APTIMA test which targets mRNA. Detecting mRNA instead of DNA, as in older methods, offers significant improvements in specificity. 11/23/2017 10:0 6 AM EST us Farhana Buenrostro CNM HISTORICAL/NON ORDERABLE LABS Final Result [facility] [address] from Last 3 Months or Most Recently Relevant to Health Maintenance Additional Health Concerns Active Problems Noted Date [...] neuropathy 08/23/2025 Patient has diabetic neuropathy 08/23/2025 Insurance [facility] STANDARD [facility] MEDICAID STAND ADULT Care Teams Shuttle Route Vehicle Operator Relationship Specialty Start Date End Date Bobo Dumont MD [address] [place] [id number] PCP - General Family Medicine 09/27/17
--- OUTSIDE RECORDS SUMMARY | 2025-09-14 16:41 | XMS_ITS | Encounter Summary ---
Author Organization [employer] Address [address] [facility] [address]t [place] [address] Care Team Providers Care Incident Commander Name Role Phone Twyla Cedeño MD Primary Care Provider + Reason for Visit * Reason Comments Med Refill Encounter Details Date Type Department Care Team (Late st Contact Info) Description 06/10/2025 Refill [facility] [address] [place], [place] [phone] Twyla Cedeño MD [address] [place], [place] [phone] Chronic left shoulder pain Social History Tobacco [...] region documented in this encounter Care Teams Incident Commander Relationship Specialty Start Date End Date Twyla Cedeño MD [address] [place] [id number] PCP - General Family Medicine 09/27/17 documented as of this encounter
--- OUTSIDE RECORDS SUMMARY | 2025-09-14 16:41 | XMS_ITS | Encounter Summary ---
Author Organization [employer] Address [address] [facility] 7t [place] [address] Care Team Providers Care Packing Floor Worker Name Role Phone Twyla Cedeño MD Primary Care Provider + Reason for Visit * Reason Onset Date Comments Appointment Request 06/18/2025 Encounter Details Date Type Department Care Team ([facility] st Contact Info) Description 06/18/2025 Telephone [facility] [address] [place], [place] [phone] Twyla Cedeño MD [address] [place], [place] [phone] Appointment Request Social History Tobacco Use Types [...] availab\le at that time. Contact pt at [phone] documented in this encounter Plan of Treatment Not on file documented as of this encounter Visit Diagnoses Not on filedocumented in this encounter Care Teams Packing Floor Worker Relationship Specialty Start Date End Date Twyla Cedeño MD [address] [place] [phone] PCP - General Family Medicine 09/27/17 documented as of this encounter
[2025-09-14 18:27] VITALS: BP 152/72; PULSE 84; RESP 18; TEMP 36.6; O2SAT 97
[2025-09-14 18:44] VITALS: RESP 17
== END 2025-09-14 18:57 | disposition home or self-care (01) ==
PROVIDERS: Emergency Provider Emergency Medicine Emergency Medical Services; PCP Internal Medicine
DX: M54.50 Low back pain, unspecified (principal); I10 Essential (primary) hypertension; E11.9 Type 2 diabetes mellitus without complications; E78.5 Hyperlipidemia, unspecified
CPT/HCPCS: 72072; 72100; 72170; 72220; 96372; 99283; 99284; J1885

== ENCOUNTER → 2025-09-14 13:32 | Outpatient (BNV) | payer MEDICAID, SELFPAY | PROVIDERS: Emergency Provider Emergency Medicine Emergency Medical Services; PCP Internal Medicine; Visit Provider Radiology Diagnostic Radiology | DX: M54.50 Low back pain, unspecified (principal); M54.6 Pain in thoracic spine; Z04.3 Encounter for examination and observation following other accident | CPT/HCPCS: 72072; 72100; 72170; 72220 ==